=== PATIENT | female | born 1985 ===

== ENCOUNTER 2018-08-04 21:43 | Inpatient (IN) ==
[2018-08-04 22:06] LABS: Baso # (Auto) 0.1 th/mm3 (0.0-0.2); Baso % (Auto) 0.5 % (0.0-2.0); Eos # (Auto) 0.1 th/mm3 (0.0-0.4); Eos % (Auto) 0.6 % (0.0-4.0); Hematocrit 32.6 % (35.0-46.0); Hemoglobin 10.7 gm/dL (11.6-15.3); Lymph # (Auto) 4.4 th/mm3 (1.0-4.8); Lymph % (Auto) 20.6 % (9.0-44.0); Mean Corpuscular HGB Conc 32.9 % (32.0-36.0); Mean Corpuscular Hemoglobin 35.3 pg (27.0-34.0); Mean Corpuscular Volume 107.2 fL (80.0-100.0); Mean Platelet Volume 8.5 fL (7.0-11.0); Mono # (Auto) 0.3 th/mm3 (0.0-0.9); Mono % (Auto) 1.6 % (0.0-8.0); Neut # (Auto) 16.4 th/mm3 (1.8-7.7); Neut % (Auto) 76.7 % (16.0-70.0); Platelet Count 213 th/mm3 (150-450); Red Blood Count 3.04 mil/mm3 (4.00-5.30); Red Cell Distribution Width 13.6 % (11.6-17.2); White Blood Count 21.5 th/mm3 (4.0-11.0)
[2018-08-04] MEDS ORDERED: Midazolam Inj 5 MG/ML 1 ML Vial ONE ×2 (22:13→22:40)
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
[2018-08-04 22:20] LABS: Activated Partial Thrombo Time 36.4 sec (23.4-31.7); INR 1.2 Ratio; Prothrombin Time 12.6 sec (9.8-11.6)
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
[2018-08-04] MEDS ORDERED: Lidocaine PF 1% Inj 30 ML Vial ONE (22:40)
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
[2018-08-04] MEDS ORDERED: levETIRAcetam 1000mg/100mL Inj 100 ML IV.SIG ONE (23:35)
[2018-08-05 00:19] LABS: ABG Base Excess -5.8 mmol/L (-2-2); ABG PCO2 42 mmHg (38-42); ABG PO2 428 mmHg (61-120)
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
[2018-08-05] MEDS: Sod Chloride 0.9% Inj 1,000 ML IV.CONT SCH ×3 (00:36→16:16)
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
[2018-08-05] MEDS: Pantoprazole Inj 40 MG Vial IV.PUSH SCH ×2 (00:37→23:10)
[2018-08-05 00:58] LABS: Bacteria,Urine Rare /hpf; Bilirubin,Urine Negative (Negative); Clarity,Urine Hazy (Clear); Color,Urine Yellow (Yellw/Straw); Glucose,Urine (UA) Negative (Negative); Leukocyte Esterase,Urine Negative (Negative); Mucus,Urine Few /lpf (Occasional); Nitrite,Urine Negative (Negative); Squamous Epithelial Cell,Urine 2 /hpf (0-5)
[2018-08-05 01:00] LABS: Amphetamine Screen,Urine Neg (Neg); Barbiturate Screen,Urine Neg (Neg); Cannabinoid Screen,Urine Neg (Neg); Cocaine Screen,Urine Neg (Neg)
[2018-08-05 01:02] LABS: Opiate Screen,Urine Pos (Neg)
[2018-08-05] MEDS: Gentamicin/NS 80 mg Premix 100 ML IV.SIG SCH ×5 (01:22→22:44)
--- NOTE | 2018-08-05 01:28 | MP ---
cc: Bernard Andres MD DATE OF OPERATION: 08/04/2018 PREPROCEDURE DIAGNOSIS: Left chest tube. POSTPROCEDURE DIAGNOSIS: Left chest tube. PROCEDURE PERFORMED: Left chest tube placement, 28-Azerbaijani. SURGEON: Bernard Andres MD ANESTHESIA: Lidocaine 1%. DESCRIPTION OF PROCEDURE: In the trauma bay, the patient's left chest was prepped and draped sterilely. Lidocaine 1% was used to anesthetize the skin and subcutaneous tissue in the anterior axillary line at about the 4th interspace. A skin incision was then made. Using blunt dissection, the intercostal muscle was encountered and the chest cavity was entered. There was a baig of air. A 28-Azerbaijani chest tube placed into the chest cavity and secured with 2-0 silk suture. An occlusive dressing was placed. The chest tube was connected to Pleur-Evac. Chest x-ray ordered to confirm position. MD MARCO Sainz/olaf , 11:53 PM , 11:58 PM
[2018-08-05] MEDS: Sod Chloride 0.9% Inj 1,000 ML IV.SIG SCH ×2 (01:35→02:36)
[2018-08-05] MEDS: ceFAZolin Inj 2,000 MG in Sodium Chlor 0.9% Inj 80 ML IV.SIG SCH ×2 (02:25→11:48)
[2018-08-05] MEDS: Midazolam 100 MG/100 ML Inj 100 MG/100 ML BAG IV.CONT PRN ×2 (03:00→19:11)
[2018-08-05] MEDS ORDERED: Norepinephrine Inj 4 MG in Sodium Chlor 0.9% Inj 246 ML IV.SIG PRN (03:36)
[2018-08-05] MEDS ORDERED: Chlorhexidine Gluconate 2% 1 Pack (2 Cloths) TOPICAL PRN (04:00)
[2018-08-05 04:28] LABS: Baso # (Auto) 0.1 th/mm3 (0.0-0.2); Baso % (Auto) 0.4 % (0.0-2.0); Eos % (Auto) 0.1 % (0.0-4.0); Hematocrit 33.1 % (35.0-46.0); Hemoglobin 11.5 gm/dL (11.6-15.3); Lymph # (Auto) 1.4 th/mm3 (1.0-4.8); Lymph % (Auto) 8.1 % (9.0-44.0); Mean Corpuscular HGB Conc 34.8 % (32.0-36.0); Mean Corpuscular Hemoglobin 33.8 pg (27.0-34.0); Mean Corpuscular Volume 97.3 fL (80.0-100.0); Mean Platelet Volume 8.3 fL (7.0-11.0); Mono # (Auto) 0.6 th/mm3 (0.0-0.9); Mono % (Auto) 3.7 % (0.0-8.0); Neut # (Auto) 15.1 th/mm3 (1.8-7.7); Neut % (Auto) 87.7 % (16.0-70.0); Platelet Count 134 th/mm3 (150-450); Red Blood Count 3.41 mil/mm3 (4.00-5.30); Red Cell Distribution Width 16.1 % (11.6-17.2); White Blood Count 17.2 th/mm3 (4.0-11.0)
[2018-08-05 05:02] LABS: Albumin 2.5 g/dL (3.4-5.0); Calcium 6.4 mg/dL (8.5-10.1); Carbon Dioxide 20.6 meq/L (21.0-32.0); Potassium 3.2 meq/L (3.5-5.1); Total Protein 4.5 g/dL (6.4-8.2)
--- NOTE | 2018-08-05 05:07 | CT ---
EXAM DATE: 08/05/2018 4:42 AM EST AGE/SEX: 89 years / Female INDICATIONS: Intracerebral hemorrhage. CLINICAL DATA: This is the patient's initial encounter. Patient reports that signs and symptoms have been present for 1 day and indicates a pain score of Nonresponsive. MEDICAL/SURGICAL HISTORY: Non-responsive. Non-responsive. RADIATION DOSE: 52.83 CTDI (mGy) [place] [facility] [place]. . TECHNIQUE: CT of the head without contrast. Using automated exposure control and adjustment of the mA and/or kV according to patient size, radiation dose was kept as low as reasonably achievable to ob tain optimal diagnostic quality images. DICOM format image data is available electronically for revi ew and comparison. FINDINGS: Patchy subarachnoid hemorrhage is grossly unchanged. There is now some dependent blood in the ventric ular system. There is no focal drainable hemorrhagic collection identified. CONCLUSION: Evolving subarachnoid hemorrhage. Minimal layering hemorrhage now evident in the ventricular system. . Electronically signed by: Naun Yepez MD Board Certified Radiologist 08/05/2018 5:06 AM EST
--- NOTE | 2018-08-05 05:29 | CT ---
EXAM DATE: 08/05/2018 4:55 AM EST AGE/SEX: 89 years / Female INDICATIONS: Intracerebral hemorrhage. CLINICAL DATA: This is the patient's initial encounter. Patient reports that signs and symptoms have been present for 1 day and indicates a pain score of Nonresponsive. MEDICAL/SURGICAL HISTORY: Non-responsive. Non-responsive. RADIATION DOSE: 10.51 CTDI (mGy) COMPARISON: [facility] [place]ST [place], [place]/2018. . TECHNIQUE: Volumetric scanning was performed using a multi-row detector CT scanner during bolus infu frieda of 100 ml Omnipaque 350 (iohexol) nonionic water-soluble contrast as a cumulative dose for mult iple exams. The data was post processed with a variety of visualization algorithms including full v olume maximum intensity projection, multi-planar sliding thin slab reformation, curved planar reforma tion, and surface rendering techniques. Using automated exposure control and adjustment of the mA an d/or kV according to patient size, radiation dose was kept as low as reasonably achievable to obtain optimal diagnostic quality images. DICOM format image data is available electronically for review an d comparison. FINDINGS: There is excellent visualization of the major intracranial arteries out to the second-order branch ve ssels. There is no evidence for aneurysm, vessel truncation or stenosis, and no evidence for vascula r malformation. The scan also includes the cervical vasculature which appears grossly intact and the uppermost medias tinum and lungs. In the upper mediastinum, there does appear to be increased mediastinal hematoma, in cluding in the prevascular space and a single tiny focus of contrast enhancement in the AP window is identified worrisome for potential active bleeding in this location. There has been interval placemen t of left subclavian central catheter which appears to be in satisfactory location. Tiny left apical pneumothorax with chest tube in place. Apical subpleural blebs. Posterior consolidative densities. ET tube and NG tube noted. T1 anterior corner fracture. CONCLUSION: 1. No acute [place] vascular findings. 2. Apparent continued increase in size of mediastinal hematoma with findings suspicious for potentia l ongoing bleeding in the AP window region. CTA examination of the chest is suggested for more defini tive evaluation for potential thoracic aortic or other arterial injury in the chest 3. Finding and recommendation discussed with Dr. Andres upon interpretation . Electronically signed by: Naun Yepez MD Board Certified Radiologist 08/05/2018 5:28 AM EST
--- NOTE | 2018-08-05 05:45 | XR ---
EXAM DATE: 08/05/2018 4:47 AM EST AGE/SEX: 89 years / Female INDICATIONS: Evaluate pneumothorax. CLINICAL DATA: This is the patient's subsequent encounter. Patient reports that signs and symptoms h ave been present for 2 days and indicates a pain score of Nonresponsive. MEDICAL/SURGICAL HISTORY: None. Chest tube, left. COMPARISON: [facility] – [place], [place]ST 1V SINGLE AP, 08/04/2018. . FINDINGS: Endotracheal tube is present in good stable position. Nasogastric tube coils in the stomach. Left tho racostomy tube is noted. Left subclavian central line terminates with tip over SVC. There is a small right apical pneumothorax with about 15 mm separation of apical pleural layers. Mini mal medial left apical pneumothorax noted. Hazy right base pleural-parenchymal opacity likely contusi on and effusion. Cardiac contours are grossly unchanged CONCLUSION: Increased right apical pneumothorax. Slight worsening in right lung base pleural-parenchymal opacity Electronically signed by: Naun Yepez MD Board Certified Radiologist 08/05/2018 5:44 AM EST
--- NOTE | 2018-08-05 06:21 | CT ---
EXAM DATE: 08/05/2018 6:08 AM EST AGE/SEX: 89 years / Female INDICATIONS: Follow up mediastinum hematoma. CLINICAL DATA: This is the patient's subsequent encounter. Patient reports that signs and symptoms h ave been present for 1 day and indicates a pain score of Nonresponsive. MEDICAL/SURGICAL HISTORY: Non-responsive. Non-responsive. RADIATION DOSE: 9.39 CTDI (mGy) COMPARISON: [facility] – [place], [place] CHEST W CONTRAST, 08/04/2018. . TECHNIQUE: Volumetric scanning was performed using a multi-row detector CT scanner during bolus infu frieda of 75 ml Omnipaque 350 (iohexol) nonionic water-soluble contrast as a single exam dose. The taj a was post processed with a variety of visualization algorithms including full volume maximum intensi ty projection and sliding thin slab reformation. Using automated exposure control and adjustment of the mA and/or kV according to patient size, radiation dose was kept as low as reasonably achievable t o obtain optimal diagnostic quality images. DICOM format image data is available electronically for review and comparison. FINDINGS: Small anterior pneumothoraces bilaterally. Left thoracostomy tube is present. Posterior consolidative changes in small effusions bilaterally slightly worse on the right than the left. Thoracic aorta and branch vessels appear intact and unremarkable. The tiny hyperdense focus in the AP window is actually isodense or close to isodense to contrast in the pulmonary vessels rather than ar terial contrast density, as such unlikely to reflect active extravasation of any type. Mediastinal he matoma appears only minimally increased relative to the prior CT chest. CONCLUSION: No definite new acute findings. Nothing to suggest site of active bleeding. Electronically signed by: Naun Yepez MD Board Certified Radiologist 08/05/2018 6:19 AM EST
[2018-08-05] MEDS ORDERED: Potassium Chloride Liq 20 MEQ/15 ML UDC PO PRN (06:31)
[2018-08-05] MEDS ORDERED: Magnesium Sulfate Inj 4 GM in Sodium Chlor 0.9% Inj 92 ML IV.SIG PRN (06:31)
[2018-08-05] MEDS ORDERED: Magnesium Sulfate Inj 2 GM in Sodium Chlor 0.9% Inj 96 ML IV.SIG PRN (06:31)
[2018-08-05] MEDS ORDERED: Magnesium Oxide 400 MG Tablet PO PRN (06:31)
[2018-08-05] MEDS ORDERED: Potassium Phosphate 500 MG Soluble Tablet PO PRN ×2 (06:31)
[2018-08-05] MEDS ORDERED: Potassium Chlor 20 mEq Premix 20 MEQ/100 ML PIGGYBACK IV.SIG PRN (06:31)
[2018-08-05] MEDS ORDERED: Potassium Phosphate Inj 30 MMOL in Sodium Chlor 0.9% Inj 250 ML IV.SIG PRN (06:31)
[2018-08-05] MEDS ORDERED: Potassium Chlor 40 mEq Premix 40 MEQ/100 ML PIGGYBACK IV.SIG PRN (06:31)
[2018-08-05] MEDS ORDERED: Sodium Phosphate Inj 30 MMOL in Sodium Chlor 0.9% Inj 250 ML IV.SIG PRN (06:31)
[2018-08-05] MEDS: Chlorhexidine Gluconate 2% 1 Pack (2 Cloths) TOPICAL SCH (06:37)
--- NOTE | 2018-08-05 06:57 | CT ---
EXAM DATE: 08/05/2018 6:37 AM EST AGE/SEX: 89 years / Female INDICATIONS: Intracerebral hemorrhage. CLINICAL DATA: This is the patient's initial encounter. Patient reports that signs and symptoms have been present for 1 day and indicates a pain score of Nonresponsive. MEDICAL/SURGICAL HISTORY: Non-responsive. Non-responsive. RADIATION DOSE: 10.61 CTDI (mGy) COMPARISON: [facility] – [place], CT THORACIC SPINE W CONTRAST, 08/04/2018. . TECHNIQUE: Volumetric scanning was performed using a multirow detector CT scanner during bolus infus ion of 100 ml Omnipaque 350 (iohexol) nonionic water-soluble contrast as a cumulative dose for multi ple exams. The data was postprocessed with a variety of visualization algorithms including full-vol ume maximum intensity projection, multiplanar sliding thin-slab reformation, curved-planar reformatio n, and surface-rendering techniques. Using automated exposure control and adjustment of the mA and/o r kV according to patient size, radiation dose was kept as low as reasonably achievable to obtain opt imal diagnostic quality images. DICOM format image data is available electronically for review and c omparison. Percent stenosis is calculated using the diameter of the stenotic region over the diameter of the nor mal distal internal carotid artery. FINDINGS: Aortic Arch: There is a three-vessel origin of the great vessels from the aorta. No evidence of ost ial narrowing Right Carotid: The common carotid artery is intact. The carotid bulb has a normal configuration wit hout ulceration or narrowing. The internal carotid artery lumen is smooth without stenosis. The ext ernal carotid artery is intact. Left Carotid: The common carotid artery is intact. The carotid bulb has a normal configuration with out ulceration or narrowing. The internal carotid artery lumen is smooth without stenosis. The exte rnal carotid artery is intact. Vertebrals: The vertebral arteries are patent bilaterally, left side slightly dominant.. No stenoti c lesions are seen. CONCLUSION: Negative CTA Carotid. Electronically signed by: Naun Yepez MD Board Certified Radiologist 08/05/2018 6:56 AM EST
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
[2018-08-05 08:40] LABS: Lymphocytes 9 % (9-44); Platelet Morphology Normal (Normal)
[2018-08-05] MEDS: Senna/Docusate Sodium 8.6/50 MG Tablet PO SCH ×2 (09:03→20:21)
[2018-08-05] MEDS: Sodium Chloride 0.9% 2 ML Flush BID IV.FLUSH SCH ×2 (09:03→20:21)
[2018-08-05] MEDS: Chlorhexidine 0.12% Oral Kit 15 ML UDC OROPHARYNG SCH ×2 (09:04→20:20)
[2018-08-05] MEDS: ceFAZolin 2 GM Premix Inj 2 GM/50 ML PIGGYBACK IV.SIG SCH ×4 (09:08→21:50)
--- NOTE | 2018-08-05 09:44 | P.CONOP ---
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 bone scan), vascular studies, neurologic studies, specialist consultation, and proceeding with surgical management, as appropriate.
--- NOTE | 2018-08-05 10:49 | MR ---
EXAM DATE: 08/05/2018 10:36 AM EST AGE/SEX: 89 years / Female INDICATIONS: Weakness. T1 and T2 fracture. CLINICAL DATA: This is the patient's subsequent encounter. Patient reports that signs and symptoms h ave been present for 2 days and indicates a pain score of Nonresponsive. MEDICAL/SURGICAL HISTORY: None. . nasal surgery [place] [facility] [place] 08/04/2018. . TECHNIQUE: Multiplanar, multisequence MRI of the thoracic spine was performed. FINDINGS: Vertebrae: Patient has an extension type avulsion injury of the anterior inferior corner of T1 and t he superior endplate of T2. The marrow appears reasonably homogeneous with exception of the anterior inferior corner of T2. Alignment: Normal. Cord: Normal position and configuration. T1-T2: The thecal sac has a normal diameter. No evidence of disc bulge or protrusion. T2-T3: There is mild interspace ridging without significant spinal stenosis. There is no cord edema. T3-T4: The thecal sac has a normal diameter. No evidence of disc bulge or protrusion. T4-T5: The thecal sac has a normal diameter. No evidence of disc bulge or protrusion. T5-T6: The thecal sac has a normal diameter. No evidence of disc bulge or protrusion. T6-T7: The thecal sac has a normal diameter. No evidence of disc bulge or protrusion. T7-T8: The thecal sac has a normal diameter. No evidence of disc bulge or protrusion. T8-T9: The thecal sac has a normal diameter. No evidence of disc bulge or protrusion. T9-T10: The thecal sac has a normal diameter. No evidence of disc bulge or protrusion. T10-T11: The thecal sac has a normal diameter. No evidence of disc bulge or protrusion. T11-T12: The thecal sac has a normal diameter. No evidence of disc bulge or protrusion. T12-L1: The thecal sac has a normal diameter. No evidence of disc bulge or protrusion. CONCLUSION: 1. Fracture of the anterior-inferior corner of T1 images and superior endplate of T2 consistent with a hyperextension injury. The signal intensity in the cord is normal. Trace pleural effusion is seen bilaterally worse on the right than the left. Electronically signed by: Tay Malone MD Board Certified Radiologist 08/05/2018 10:48 AM EST
[2018-08-05] MEDS ORDERED: Phenylephrine/NS 1000 MCG/10ML Syringe IV.PUSH ONE (11:07)
[2018-08-05] MEDS ORDERED: Sod Chloride 0.9% Inj 1,000 ML IV.CONT ONE (11:07)
--- NOTE | 2018-08-05 11:20 | MR ---
EXAM DATE: 08/05/2018 10:58 AM EST AGE/SEX: 89 years / Female INDICATIONS: Trauma. CLINICAL DATA: This is the patient's subsequent encounter. Patient reports that signs and symptoms h ave been present for 2 days and indicates a pain score of Nonresponsive. MEDICAL/SURGICAL HISTORY: None. . nasal surgery COMPARISON: No prior exams available for comparison. TECHNIQUE: Multiplanar, multisequence MRI of the lumbar spine was performed without contrast. Patie nt was scanned in a sitting position; neutral, flexion, and extension scans were performed in the sa gittal plane. FINDINGS: Vertebra: Homogeneous signal. Normal alignment. Minimal Schmorl's type endplate depression at L1 pr obably chronic Conus: Normal level and configuration. T12-L1: The thecal sac has a normal diameter. No evidence of disc bulge or protrusion. The neural foramina are patent bilaterally. L1-L2: The thecal sac has a normal diameter. No evidence of disc bulge or protrusion. The neural foramina are patent bilaterally. L2-L3: The thecal sac has a normal diameter. No evidence of disc bulge or protrusion. The neural foramina are patent bilaterally. L3-L4: The thecal sac has a normal diameter. No evidence of disc bulge or protrusion. The neural foramina are patent bilaterally. L4-L5: The thecal sac has a normal diameter. No evidence of disc bulge or protrusion. The neural foramina are patent bilaterally. L5-S1: The thecal sac has a normal diameter. No evidence of disc bulge or protrusion. The neural foramina are patent bilaterally. CONCLUSION: 1. Negative MRI of the lumbar spine for acute traumatic injury. Electronically signed by: Tay Malone MD Board Certified Radiologist 08/05/2018 11:19 AM EST
[2018-08-05] MEDS ORDERED: Post-op Orders (for Pharmacy) OTHER STA (12:39)
--- NOTE | 2018-08-05 12:48 | P.OP ---
- Preoperative Diagnosis (1) Open fracture of left patella (2) Open supracondylar fracture of right femur Date of procedure: 08/05/18 Procedure: Irrigation and debridement open right distal femur fracture, open reduction right distal femur supracondylar fracture, external fixation right leg Irrigation debridement of open left patella fracture, open reduction internal fixation left patella fracture Anesthesia: GETA Surgeon: Nitish Banda MD Varnishing Unit Operator: BETSY Hodges PA-C The surgical procedure was assisted by my physician assistant manager. My P.A. presence was necessary throughout this case for the manipulation and positioning of the surgical extremity. My P.A. was assisting me throughout the duration of this procedure. The skill set of a physician assistant manager was medically necessary to complete this procedure. During the surgical case the rn medical surgical was working at the back table and the physician assistant manager was directly assisting me. Operation and Findings: Implants used: Orthofix external fixation right knee, Synthes cannulated screws left patella Details of procedure: This patient sustained an injury resulting in open comminuted fractures of right distal femur and left patella. Patient was seen and evaluated preoperatively and found to have too much swelling to proceed with open reduction internal fixation. She is intubated and sedated in the intensive care unit. Surgical site was marked. Patient was brought to operating room and placed on the OR table. Patient was given IV sedation and GETA. Patient received IV antibiotics and timeout procedure was performed. Bilateral legs were prepped with alcohol followed by Hibiclens and draped in the usual sterile fashion. Procedure began with irrigation debridement of the right distal femur fracture. A 4 inch incision was made over the lateral aspect of the distal femur. Iliotibial band was split in line with fibers. Vastus lateralis was elevated. Fracture site was visualized. An excisional debridement was performed. Multiple small bone fragments were removed. Skin fascia and muscle were sharply debrided with scalpel. After completion of debridement the wound was thoroughly irrigated with sterile saline via pulsatile lavage. Next attention was turned towards placement of the external fixation. Two small incisions were made along the anterior femur and the tibia. Soft tissue was dissected bluntly. Cannulas were placed down to the cortex of bone. Pin sites were predrilled. Synthes GRAY-coated pins were placed into the femur and tibia. Fluoroscopy was used to confirm appropriate pin placement. An external fixator construct was now created with clamps and bars. Next attention was turned to reduction. Traction was applied. Fracture was manipulated through the open wound. There was severe comminution of the fracture. Gross alignment of the fracture was obtained. Fluoroscopy was used to confirm appropriate alignment of fracture. The external fixator was now tightened to hold reduction. The soft tissue was reevaluated. Patient did have swelling around the knee and calf but compartments were soft and compressible with no signs of compartment syndrome. Incisions were closed with 0 Vicryl, 3-0 Vicryl, 3-0 nylon and roby. Next attention was turned towards the left patella. The traumatic laceration was extended proximally and distally to allow for exposure of the patella. Subcutaneous tissue was dissected with Bovie. At this point the fracture site was visualized. Fracture was severely comminuted. Fracture was now cleaned with curettes. At this point attention was turned to reduction. The inferior pole of the patella was reduced to the superior pole of the patella. Fracture keyed into appropriate alignment. A lateral articular surface fragment was also reduced. Multiplanar fluoroscopy confirmed excellent alignment of fracture. Two guide pins for the Synthes 4.0 cannulated screws were now placed from inferior to superior. A third wire was placed from lateral to medial. Fluoroscopy was used to confirm appropriate guidepin placement. Screw lengths were measured. Cannulated drill was now placed over the guide pins. Appropriate length screws were now placed, good compression was applied. An 18 gauge wire was now passed through the cannulated screws in a [id number] fashion. A tension band type construct was now created. The wires were tensioned appropriately. Fluoroscopy confirmed well-placed hardware with well- aligned fracture. The retinaculum was now closed with #1 PDS, subcutaneous tissue was closed with 3-0 PDS and skin was closed with roby and 3-0 nylon. Sterile dressings were applied. The patient was transferred back to intensive care. She was placed into a knee immobilizer.
[2018-08-05] MEDS ORDERED: fentaNYL Citrate Inj 100 MCG/2 ML Ampul ONE (13:30)
--- NOTE | 2018-08-05 13:45 | XR ---
EXAM DATE: 08/05/2018 12:49 PM EST AGE/SEX: 89 years / Female INDICATIONS: LEFT KNEE ORIF CLINICAL DATA: This is the patient's initial encounter. Patient reports that signs and symptoms have been present for 1 day and indicates a pain score of Nonresponsive. MEDICAL/SURGICAL HISTORY: Non-responsive. Non-responsive. COMPARISON: No prior exams available for comparison. FINDINGS: 2 images recorded digitally in the operating room using C-arm during placement of internal fixation h ardware in the patella. CONCLUSION: Intraoperative images. Electronically signed by: Marino Ji MD Board Certified Radiologist 08/05/2018 1:44 PM EST
--- NOTE | 2018-08-05 13:45 | XR ---
EXAM DATE: 08/05/2018 12:47 PM EST AGE/SEX: 89 years / Female INDICATIONS: RIGHT FEMUR EX-FIX. CLINICAL DATA: This is the patient's initial encounter. Patient reports that signs and symptoms have been present for 1 day and indicates a pain score of Nonresponsive. MEDICAL/SURGICAL HISTORY: Non-responsive. Non-responsive. COMPARISON: No prior exams available for comparison. FINDINGS: 4 images are recorded digitally in the operating room using C-arm of the mid and distal femur. CONCLUSION: Intraoperative images. Electronically signed by: Marino Ji MD Board Certified Radiologist 08/05/2018 1:44 PM EST
[2018-08-05] MEDS ORDERED: ceFAZolin Inj 2,000 MG in Sodium Chlor 0.9% Inj 80 ML IV.SIG SCH (14:00)
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
[2018-08-05] MEDS: Potassium Chlor 40 mEq Premix 40 MEQ/100 ML PIGGYBACK IV.SIG PRN ×2 (16:13→19:26)
[2018-08-05] MEDS: Oral Hygiene Kit OROPHARYNG SCH ×3 (16:17→23:22)
[2018-08-05] MEDS ORDERED: Lidocaine 1%/Epinephrine 1:100,000 Inj 30 ML Vial ONE (17:31)
[2018-08-05] MEDS ORDERED: Balanced Salt Opth Irrigation 15 APPLIC/15 ML Bottle ONE (18:43)
--- NOTE | 2018-08-05 19:48 | P.OP ---
- Preoperative Diagnosis (1) Eyelid laceration, left (2) Chin laceration Date of procedure: 08/05/18 Procedure: closure of complex left upper eyelid laceration/soft tissue injury with advancement closure 3cm x 2cm closure of complex left lower eyelid laceration/soft tissue injury with advancement closure 2cmx 1cm debridement/closure of complex chin laceration/soft tissue injury 5cm x 2 cm Anesthesia: local (2%lidocaine with 1:100,000 6 cc) Surgeon: Gagan Warren DMD Machine Tool Mechanic: nurse reynolds Pathology: none sent
[2018-08-05] MEDS: fentaNYL 10 mcg/mL Premix Drip 2,500 MCG/250 ML BAG IV.SIG PRN ×2 (20:21)
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
[2018-08-06] MEDS: ceFAZolin 2 GM Premix Inj 2 GM/50 ML PIGGYBACK IV.SIG SCH ×4 (00:32→21:07)
[2018-08-06] MEDS: Gentamicin/NS 80 mg Premix 100 ML IV.SIG SCH ×4 (01:16→21:47)
[2018-08-06] MEDS: Sod Chloride 0.9% Inj 1,000 ML IV.CONT SCH ×3 (01:59→22:32)
[2018-08-06] MEDS: Oral Hygiene Kit OROPHARYNG SCH ×4 (03:18→23:48)
[2018-08-06] MEDS: Chlorhexidine Gluconate 2% 1 Pack (2 Cloths) TOPICAL SCH (03:18)
--- NOTE | 2018-08-06 04:08 | XR ---
EXAM DATE: 08/06/2018 3:56 AM EST AGE/SEX: 89 years / Female INDICATIONS: Respiratory distress. CLINICAL DATA: This is the patient's subsequent encounter. Patient reports that signs and symptoms h ave been present for 2 days and indicates a pain score of Nonresponsive. MEDICAL/SURGICAL HISTORY: . Thoracic spine fracture. Chest tube, left. Fusion, thoracic. Cent ral line. COMPARISON: [facility] [place], CHEST 1V SINGLE AP, 08/05/2018. . FINDINGS: There has been interval increase in right pneumothorax with greater than 2.5 cm separation of apical pleural layers now evident and 13-14 mm separation of apical pleural layers laterally. There is persi stent basilar consolidation and effusion bilaterally. Left thoracostomy tube remains in place with no significant left pneumothorax at present. Left subclavian central line, endotracheal tube and nasoga stric tube are stable. Cardiac contours are unchanged CONCLUSION: Sizable right pneumothorax Electronically signed by: Nanu Yepez MD Board Certified Radiologist 08/06/2018 4:06 AM EST
[2018-08-06 04:31] LABS: Baso % (Auto) 0.2 % (0.0-2.0); Eos % (Auto) 0.2 % (0.0-4.0); Hematocrit 24.2 % (35.0-46.0); Hemoglobin 8.4 gm/dL (11.6-15.3); Lymph # (Auto) 1.5 th/mm3 (1.0-4.8); Lymph % (Auto) 12.7 % (9.0-44.0); Mean Corpuscular HGB Conc 34.6 % (32.0-36.0); Mean Corpuscular Hemoglobin 34.1 pg (27.0-34.0); Mean Corpuscular Volume 98.6 fL (80.0-100.0); Mono % (Auto) 8.5 % (0.0-8.0); Neut # (Auto) 9.1 th/mm3 (1.8-7.7); Neut % (Auto) 78.4 % (16.0-70.0); Platelet Count 107 th/mm3 (150-450); Red Blood Count 2.45 mil/mm3 (4.00-5.30); Red Cell Distribution Width 16.6 % (11.6-17.2); White Blood Count 11.6 th/mm3 (4.0-11.0)
[2018-08-06 05:05] LABS: Albumin 2.2 g/dL (3.4-5.0); Calcium 6.1 mg/dL (8.5-10.1); Carbon Dioxide 19.9 meq/L (21.0-32.0); Potassium 5.1 meq/L (3.5-5.1); Total Protein 4.8 g/dL (6.4-8.2)
[2018-08-06 05:58] LABS: ABG Base Excess -6.7 mmol/L (-2-2); ABG PCO2 35 mmHg (38-42); ABG PO2 78 mmHg (61-120)
[2018-08-06] MEDS ORDERED: Lidocaine 1% Inj 50 ML Vial INFILTRATN ONE (06:33)
--- NOTE | 2018-08-06 06:57 | P.PNOP ---
Subjective Interval history: POD 1 s/p ORIF left patella fx POD 1 s/p I&D with exfix right distal femur fx intubated/sedated Physical Exam Vital signs: Vital Signs 08/05/18 07:00 08/05/18 07:15 08/05/18 07:30 Temperature Pulse Rate 109 H 111 H 114 H Respiratory Rate 18 29 H 22 Blood Pressure 117/57 L 124/56 L 115/57 L Pulse Oximetry 100 100 100 08/05/18 07:45 08/05/18 07:58 08/05/18 08:00 Temperature 98.9 F Pulse Rate 115 H 117 H 117 H Respiratory Rate 36 H 20 38 H Blood Pressure 111/76 109/71 Pulse Oximetry 100 100 100 08/05/18 08:24 08/05/18 08:30 08/05/18 08:45 Temperature Pulse Rate 121 H 122 H 121 H Respiratory Rate 38 H 31 H 40 H Blood Pressure 113/56 L 117/57 L 103/68 Pulse Oximetry 100 100 100 08/05/18 09:00 08/05/18 09:15 08/05/18 11:08 Temperature Pulse Rate 120 H 122 H Respiratory Rate 22 25 H Blood Pressure 102/63 103/56 L Pulse Oximetry 100 100 100 08/05/18 13:45 08/05/18 14:00 08/05/18 15:00 Temperature 98.9 F Pulse Rate 127 H 125 H 136 H Respiratory Rate 28 H 25 H 24 Blood Pressure 109/55 L 106/67 Pulse Oximetry 100 100 100 08/05/18 15:21 08/05/18 16:00 08/05/18 17:00 Temperature 100.2 F H Pulse Rate 138 H 139 H Respiratory Rate 22 24 22 Blood Pressure 108/57 L 110/59 L Pulse Oximetry 100 100 100 08/05/18 18:00 08/05/18 19:00 08/05/18 20:00 Temperature 102.9 F H Pulse Rate 139 H 139 H 140 H Respiratory Rate 19 28 H 19 Blood Pressure 109/53 L 105/56 L 115/57 L Pulse Oximetry 100 100 100 08/05/18 21:00 08/05/18 22:00 08/05/18 23:00 Temperature Pulse Rate 140 H 136 H 129 H Respiratory Rate 22 23 23 Blood Pressure 103/61 105/57 L 110/70 Pulse Oximetry 95 94 L 93 L 02/12/19 00:00 08/06/18 00:29 08/06/18 01:00 Temperature 100.4 F H Pulse Rate 125 H 122 H Respiratory Rate 21 21 21 Blood Pressure 119/67 131/66 Pulse Oximetry 95 94 L 94 L 08/06/18 02:00 08/06/18 03:00 08/06/18 03:42 Temperature Pulse Rate 116 H 112 H 113 H Respiratory Rate 40 H 20 19 Blood Pressure 123/63 123/67 Pulse Oximetry 95 95 97 08/06/18 04:00 08/06/18 05:00 08/06/18 06:00 Temperature 98 F Pulse Rate 115 H 113 H 113 H Respiratory Rate 23 25 H 39 H Blood Pressure 123/73 127/83 131/84 Pulse Oximetry 96 95 95 Intake & Output 08/05/18 08/05/18 08/06/18 06:59 18:59 06:59 Intake Total 2300 / 2300 3005 / 3005 2105 / 2105 Output Total 712 / 712 50 / 50 822 / 822 Balance 1588 / 1588 2955 / 2955 1283 / 1283 Weight 76.6 kg 75.2 kg Intake: IV 2300 / 2300 2004 2105 / 2105 Versed Inj 100 mg In 100 ml @ 2 100 / 100 MG/HR 2 mls/hr IV.CONT TITRATE PRN Rx#:[id number] NS Inj 1,000 ML @ 100 mls/hr IV 1600 / 1600 1000 / 1000 .CONT .Q10H MAEVE Rx#:[id number] Ofirmev Inj 1,000 mg In 100 ml 100 / 100 @ 400 mls/hr IV.SIG Q6H PRN Rx# :[id number] Gentamicin/NS 80 mg Premix 100 100 / 100 200 / 200 200 / 200 ML @ 200 mls/hr IV.SIG Q8H MAEVE Rx#:[id number] KCl 40 mEq Premix Inj 40 meq In 200 / 200 100 ml @ 25 mls/hr IV.SIG Q2H PRN Rx#:[id number] NS Inj 1,000 ML @ 1000 mls/hr 1999 / 1999 IV.SIG .Q1H MAEVE Rx#:[id number] Ancef 2 GM Premix Inj 2 gm In 100 / 100 150 / 150 50 ml @ 100 mls/hr IV.SIG Q8H [facility] Rx#:[id number] Ancef Inj 2,000 MG In NS Inj 80 100 / 100 ML @ 200 mls/hr IV.SIG Q8H [facility] Rx#:[id number] fentaNYL 10 mcg/mL Premix Drip 250 / 250 2,500 mcg In 250 ml @ 50 MCG/HR 5 mls/hr IV.SIG TITRATE PRN Rx #:[id number] Keppra 1000 mg/100 mL Premix 100 / 100 100 ML @ 400 mls/hr IV.SIG ONCE ONE Rx#:[id number] Keppra Inj 500 MG In NS Inj 100 105 / 105 105 / 105 ML @ 400 mls/hr IV.SIG Q12H [facility] Rx#:[id number] Anesthesia Amount 1000 / 1000 Output: Estimated Blood Loss 50 / 50 Urine Amount (Catheter) 650 / 650 700 / 700 Indwelling Urethral Catheter 650 / 650 700 / 700 Gastric Drainage 50 / 50 100 / 100 Oral Orogastric Tube 50 / 50 100 / 100 Chest Tube Drainage Left Upper Other: Weight On Admission 76.6 kg Narrative: RLE: dressings clean and dry. exfix in place. pin sites clean. +cap refill LLE: dressing clean and dry. intact. +CKS. +cap refill - Urinary Catheter Management Indwelling Urethral Catheter Cath placed during this visit: yes Reason for continuing: Hourly intake/output Insertion date: 08/05/18 Insertion time: 00:00 Results - Labs CBC & Chem 7: 08/06/18 03:10 08/06/18 03:10 Laboratory Results - last 24 hr 08/04/18 08/04/18 08/05/18 21:53 22:07 04:10 WBC RBC Hgb Hct MCV MCH MCHC RDW Plt Count MPV Neut % (Auto) Lymph % (Auto) Cedar % (Auto) Eos % (Auto) Baso % (Auto) Neut # (Auto) Lymph # (Auto) Cedar # (Auto) Eos # (Auto) Baso # (Auto) WBC Differential Manual diff final Seg Neuts % (Manual) 56 Band Neuts % (Manual) 35 H Lymphocytes % (Manual) 9 Abs Neuts (Manual) 15.7 H Differential Comment Platelet Estimate Low L Platelet Morphology Normal Puncture Site Patient Temperature O2 Saturation ABG pH ABG pCO2 ABG pO2 ABG HCO3 ABG O2 Content ABG Base Excess ABG Methemoglobin Bereket Test Hemoglobin Carboxyhemoglobin O2 Delivery Device Vent Setting Inspired O2 Critical Value Sodium Potassium Chloride Carbon Dioxide Anion Gap BUN Creatinine Estimated GFR Random Glucose Calcium Calcium Adj for Albumin Total Bilirubin AST ALT Alkaline Phosphatase Total Protein Albumin Blood Type B Positive Blood Type Recheck Antibody Screen Negative MTS Gel Crossmatch See Detail Blood Bank Comment 08/06/18 08/06/18 08/06/18 03:10 03:10 05:45 WBC 11.6 H RBC 2.45 L Hgb 8.4 L D Hct 24.2 L MCV 98.6 MCH 34.1 H MCHC 34.6 RDW 16.6 Plt Count 107 L MPV 9.0 Neut % (Auto) 78.4 H Lymph % (Auto) 12.7 Cedar % (Auto) 8.5 H Eos % (Auto) 0.2 Baso % (Auto) 0.2 Neut # (Auto) 9.1 H Lymph # (Auto) 1.5 Cedar # (Auto) 1.0 H Eos # (Auto) 0.0 Baso # (Auto) 0.0 WBC Differential . Seg Neuts % (Manual) Band Neuts % (Manual) Lymphocytes % (Manual) Abs Neuts (Manual) Differential Comment Auto diff final Platelet Estimate Platelet Morphology Puncture Site Left radial Patient Temperature 98.6 O2 Saturation 92 ABG pH 7.34 L ABG pCO2 35 L ABG pO2 78 ABG HCO3 18 L ABG O2 Content 12.8 ABG Base Excess -6.7 L ABG Methemoglobin 1.3 Bereket Test Present Hemoglobin 9.8 L Carboxyhemoglobin 1.2 O2 Delivery Device Ventilator Vent Setting 18/500/it0.9/5peep Inspired O2 40 Critical Value No Sodium 148 H Potassium 5.1 D Chloride 120 H Carbon Dioxide 19.9 L Anion Gap 8 BUN 27 H Creatinine 1.10 H Estimated GFR 43 L Random Glucose 157 H Calcium 6.1 L* Calcium Adj for Albumin 7.5 L Total Bilirubin 0.2 AST 451 H ALT 269 H Alkaline Phosphatase 53 Total Protein 4.8 L Albumin 2.2 L Blood Type Blood Type Recheck Antibody Screen MTS Gel Crossmatch Blood Bank Comment - Imaging Impressions Femur X-Ray 08/05/18 00:00 CONCLUSION: Intraoperative images. Knee X-Ray 08/05/18 00:00 CONCLUSION: Intraoperative images. Neck CTA 08/05/18 05:00 CONCLUSION: Negative CTA Carotid. Lumbar Spine MRI 08/05/18 08:34 CONCLUSION: 1. Negative MRI of the lumbar spine for acute traumatic injury. Thoracic Spine MRI 08/05/18 08:34 CONCLUSION: 1. Fracture of the anterior-inferior corner of T1 images and superior endplate of T2 consistent with a hyperextension injury. The signal intensity in the cord is normal. Trace pleural effusion is seen bilaterally worse on the right than the left. Chest X-Ray 08/06/18 06:00 CONCLUSION: Sizable right pneumothorax Assessment and Plan - Assessment and Plan 1) Left Open Patella Fracture s/p ORIF - POD 1 -NWB -no ROM -knee brace at all times -no quad sets or leg lifts -daily dressing changes POD 2 with xeroform/4x4/FERMIN 2) Right Open Comminuted distal Femur Fracture s/p exfix -NWB -pin care BID with 50/50 peroxide/saline -will need definitive ORIF once patient is stable -would like to proceed this week if patient can tolerate. will discuss with trauma team and plan accordingly.
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
[2018-08-06] MEDS ORDERED: Artificial Tears Opth Oint 3.5 GM Tube LEFT EYE SCH (10:00)
[2018-08-06] MEDS: Chlorhexidine 0.12% Oral Kit 15 ML UDC OROPHARYNG SCH ×2 (10:28→20:23)
[2018-08-06] MEDS: Sodium Chloride 0.9% 2 ML Flush BID IV.FLUSH SCH ×2 (10:29→20:24)
[2018-08-06] MEDS: fentaNYL 10 mcg/mL Premix Drip 2,500 MCG/250 ML BAG IV.SIG PRN ×2 (10:30→20:25)
--- NOTE | 2018-08-06 10:35 | XR ---
EXAM DATE: 08/06/2018 10:26 AM EST AGE/SEX: 89 years / Female INDICATIONS: Right side chest tube placement. CLINICAL DATA: This is the patient's subsequent encounter. Patient reports that signs and symptoms h ave been present for 2 days and indicates a pain score of Nonresponsive. MEDICAL/SURGICAL HISTORY: . Thoracic spine fracture. Chest tube, left. Central line. . Fusion, thoracic. COMPARISON: [facility], CHEST 1V SINGLE AP, 08/06/2018. . FINDINGS: Right apical pneumothorax is present obscured by breathing apparatus, however appears slightly smalle r. Lines and tubes have not changed. Left lung base opacity is present may represent consolidation. T here is subcutaneous emphysema in the right chest wall with a pigtail chest tube in place. Small righ t pleural effusion is also present. CONCLUSION: 1. Reduction in size of the right pneumothorax with small apical pneumothorax remaining. 2. Bilateral pleural effusions and left lung base consolidation. Right lung base consolidation is di fficult to exclude. Electronically signed by: Vanessa Montanez MD Board Certified Radiologist 08/06/2018 10:33 AM EST
[2018-08-06] MEDS: Senna/Docusate Sodium 8.6/50 MG Tablet PO SCH ×2 (10:40→20:23)
[2018-08-06] MEDS: Enoxaparin Inj 30 MG/0.3 ML Syringe SQ SCH ×2 (10:41→20:23)
[2018-08-06] MEDS: [UNRECOGNIZED DRUG - OTHER] LEFT EYE SCH ×2 (12:12→20:24)
[2018-08-06] MEDS: Midazolam 100 MG/100 ML Inj 100 MG/100 ML BAG IV.CONT PRN (12:14)
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
--- NOTE | 2018-08-06 17:20 | XR ---
EXAM DATE: 08/06/2018 5:12 PM EST AGE/SEX: 33 years / Female INDICATIONS: Respiratory distress. CLINICAL DATA: This is the patient's initial encounter. Patient reports that signs and symptoms have been present for 2 days and indicates a pain score of Nonresponsive. MEDICAL/SURGICAL HISTORY: Non-responsive. Non-responsive. COMPARISON: [facility] [place], CHEST 1V SINGLE AP, 08/06/2018. . FINDINGS: A single AP view of the chest demonstrates right apical pneumothorax measuring 13 mm of pleural separ ation. Right-sided chest tube and subcutaneous emphysema. Left-sided chest tube with small left apica l pneumothorax measuring 7 mm pleural separation. Minimal bibasilar densities. The cardiomediastinal contours are unremarkable. Osseous structures are intact. Endotracheal tube, nasogastric tube and le ft subclavian central line stable position. CONCLUSION: Small bilateral pneumothoraces slightly larger on the right. Electronically signed by: Levar Nation MD Board Certified Radiologist 08/06/2018 5:19 PM EST
[2018-08-06 17:25] LABS: ABG Base Excess -5.1 mmol/L (-2-2); ABG PCO2 38 mmHg (38-42); ABG PO2 79 mmHg (61-120)
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
[2018-08-06] MEDS: Pantoprazole Inj 40 MG Vial IV.PUSH SCH (23:47)
[2018-08-07] MEDS: Chlorhexidine Gluconate 2% 1 Pack (2 Cloths) TOPICAL SCH (03:46)
[2018-08-07] MEDS: Oral Hygiene Kit OROPHARYNG SCH ×4 (03:47→23:56)
[2018-08-07] MEDS: Midazolam 100 MG/100 ML Inj 100 MG/100 ML BAG IV.CONT PRN ×2 (03:47→23:57)
[2018-08-07 04:24] LABS: Baso % (Auto) 0.1 % (0.0-2.0); Lymph # (Auto) 0.8 th/mm3 (1.0-4.8); Lymph % (Auto) 5.9 % (9.0-44.0); Mean Corpuscular Hemoglobin 33.8 pg (27.0-34.0); Mean Corpuscular Volume 99.7 fL (80.0-100.0); Mean Platelet Volume 9.6 fL (7.0-11.0); Mono # (Auto) 0.7 th/mm3 (0.0-0.9); Mono % (Auto) 4.9 % (0.0-8.0); Neut % (Auto) 89.1 % (16.0-70.0); Platelet Count 92 th/mm3 (150-450); Red Blood Count 1.88 mil/mm3 (4.00-5.30); Red Cell Distribution Width 16.4 % (11.6-17.2); White Blood Count 13.5 th/mm3 (4.0-11.0)
[2018-08-07 04:33] LABS: Hematocrit 18.7 % (35.0-46.0); Hemoglobin 6.4 gm/dL (11.6-15.3)
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
[2018-08-07 05:11] LABS: Anion Gap 9 meq/L (5-15); Blood Urea Nitrogen 18 mg/dL (7-18); Calcium 6.6 mg/dL (8.5-10.1); Carbon Dioxide 21.5 meq/L (21.0-32.0); Chloride 119 meq/L (98-107); Glomerular Filtration Rate Greater Than 89 mL/min (>89); Glucose,Random 130 mg/dL (74-106); Potassium 4.2 meq/L (3.5-5.1); Sodium 149 meq/L (136-145)
[2018-08-07 05:28] LABS: Albumin 2.1 g/dL (3.4-5.0); Calcium-Albumin Corrected 8.1 mg/dL (8.5-10.1)
[2018-08-07] MEDS: fentaNYL 10 mcg/mL Premix Drip 2,500 MCG/250 ML BAG IV.SIG PRN ×2 (05:47→19:00)
[2018-08-07] MEDS: ceFAZolin 2 GM Premix Inj 2 GM/50 ML PIGGYBACK IV.SIG SCH (05:48)
[2018-08-07] MEDS: Gentamicin/NS 80 mg Premix 100 ML IV.SIG SCH (06:20)
[2018-08-07 07:09] LABS: Lymphocytes 7 % (9-44); Metamyelocytes 2 % (0-1); Monocytes 3 % (0-8); Platelet Morphology Normal (Normal)
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
[2018-08-07] MEDS: [UNRECOGNIZED DRUG - OTHER] LEFT EYE SCH ×2 (08:10→21:08)
[2018-08-07] MEDS: Chlorhexidine 0.12% Oral Kit 15 ML UDC OROPHARYNG SCH ×2 (08:10→21:09)
[2018-08-07] MEDS: Senna/Docusate Sodium 8.6/50 MG Tablet PO SCH ×2 (08:11→21:07)
[2018-08-07] MEDS: Enoxaparin Inj 30 MG/0.3 ML Syringe SQ SCH ×3 (08:11→21:08)
[2018-08-07] MEDS: Sod Chloride 0.9% Inj 1,000 ML IV.CONT SCH (08:11)
[2018-08-07] MEDS: Sodium Chloride 0.9% 2 ML Flush BID IV.FLUSH SCH ×2 (08:11→21:07)
[2018-08-07 10:01] LABS: ABG Base Excess -2.7 mmol/L (-2-2); ABG PCO2 34 mmHg (38-42); ABG PO2 70 mmHg (61-120)
[2018-08-07] MEDS: Sodium Chloride 0.45 % Inj 1,000 ML IV.CONT SCH (10:15)
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
--- NOTE | 2018-08-07 10:41 | P.PN ---
Subjective Interval history: pt seen and examined 08-06-18 POD 1 s/p repair of complex eyelid lacerations and chin laceration pt seen and examined, intubated, sedated, pt's nurse at bedside Physical Exam Vital signs: Vital Signs 08/06/18 11:00 08/06/18 12:00 08/06/18 12:02 Temperature 99.0 F Pulse Rate 117 H 116 H Respiratory Rate 18 18 20 Blood Pressure 131/82 124/89 Pulse Oximetry 94 L 95 95 08/06/18 13:00 08/06/18 14:00 08/06/18 15:00 Temperature Pulse Rate 117 H 122 H 128 H Respiratory Rate 18 18 18 Blood Pressure 128/79 121/71 118/67 Pulse Oximetry 94 L 93 L 97 08/06/18 15:14 08/06/18 16:00 08/06/18 17:00 Temperature Pulse Rate 120 H 128 H 126 H Respiratory Rate 18 19 21 Blood Pressure 128/70 124/68 Pulse Oximetry 96 97 92 L 08/06/18 18:00 08/06/18 18:45 08/06/18 19:02 Temperature Pulse Rate 121 H 122 H Respiratory Rate 34 H 22 Blood Pressure 133/60 Pulse Oximetry 92 L 98 89 L 08/06/18 19:44 08/06/18 20:00 08/06/18 20:30 Temperature 99.4 F Pulse Rate 121 H 121 H 123 H Respiratory Rate 38 H 39 H 21 Blood Pressure 169/77 H 145/72 H 129/84 Pulse Oximetry 99 99 100 08/06/18 20:31 08/06/18 21:00 08/06/18 21:30 Temperature Pulse Rate 122 H 124 H 126 H Respiratory Rate 20 18 18 Blood Pressure 128/72 Pulse Oximetry 98 100 100 08/06/18 22:00 08/06/18 22:30 08/06/18 23:00 Temperature Pulse Rate 123 H 129 H 125 H Respiratory Rate 20 18 18 Blood Pressure 118/79 131/70 122/76 Pulse Oximetry 98 98 100 08/06/18 23:30 08/07/18 00:00 08/07/18 00:30 Temperature 99.1 F Pulse Rate 126 H 124 H 126 H Respiratory Rate 18 18 18 Blood Pressure 127/80 116/76 121/74 Pulse Oximetry 100 100 100 08/07/18 01:00 08/07/18 01:12 08/07/18 01:30 Temperature Pulse Rate 128 H 124 H Respiratory Rate 18 18 18 Blood Pressure 123/74 137/61 Pulse Oximetry 99 99 96 08/07/18 02:00 08/07/18 02:30 08/07/18 03:00 Temperature Pulse Rate 124 H 122 H 123 H Respiratory Rate 18 18 18 Blood Pressure 121/75 128/70 131/74 Pulse Oximetry 96 97 98 08/07/18 03:05 08/07/18 03:30 08/07/18 03:45 Temperature Pulse Rate 114 H 123 H Respiratory Rate 18 18 19 Blood Pressure 128/74 Pulse Oximetry 94 L 96 08/07/18 04:00 08/07/18 04:30 08/07/18 05:00 Temperature 98.4 F Pulse Rate 119 H 118 H 113 H Respiratory Rate 18 18 18 Blood Pressure 128/66 128/70 134/61 Pulse Oximetry 96 96 98 08/07/18 05:30 08/07/18 06:00 08/07/18 06:24 Temperature 98.5 F Pulse Rate 112 H 110 H 110 H Respiratory Rate 18 18 18 Blood Pressure 124/72 127/75 127/75 Pulse Oximetry 98 99 99 08/07/18 06:30 08/07/18 06:45 08/07/18 07:00 Temperature Pulse Rate 107 H 105 H 103 H Respiratory Rate 18 18 18 Blood Pressure 130/76 128/73 130/75 Pulse Oximetry 100 100 100 08/07/18 07:15 08/07/18 07:30 08/07/18 07:45 Temperature Pulse Rate 102 H 102 H 102 H Respiratory Rate 18 18 18 Blood Pressure 126/67 130/66 124/71 Pulse Oximetry 100 99 99 08/07/18 08:00 08/07/18 08:09 08/07/18 08:15 Temperature 98.9 F 98.9 F Pulse Rate 104 H 108 H 115 H Respiratory Rate 22 23 Blood Pressure 134/75 134/75 151/83 H Pulse Oximetry 98 95 08/07/18 08:29 08/07/18 08:30 08/07/18 08:45 Temperature Pulse Rate 110 H 113 H 113 H Respiratory Rate 18 19 19 Blood Pressure 140/77 164/81 H Pulse Oximetry 95 95 92 L 08/07/18 09:00 Temperature Pulse Rate 107 H Respiratory Rate 18 Blood Pressure 134/63 Pulse Oximetry 94 L Intake & Output 08/06/18 08/07/18 08/07/18 18:59 06:59 18:59 Intake Total 1705 / 1705 1805 / 1805 1000 / 1000 Output Total 1455 / 1455 1226 / 1226 Balance 250 / 250 579 / 579 1000 / 1000 Weight 75.4 kg Intake: IV 1705 / 1705 1405 / 1405 1000 / 1000 Versed Inj 100 mg In 100 ml @ 2 100 / 100 100 / 100 MG/HR 2 mls/hr IV.CONT TITRATE PRN Rx#:[id number] NS Inj 1,000 ML @ 100 mls/hr IV 1000 / 1000 400 / 400 1000 / 1000 .CONT .Q10H MAEVE Rx#:[id number] Gentamicin/NS 80 mg Premix 100 200 / 200 200 / 200 ML @ 200 mls/hr IV.SIG Q8H MAEVE Rx#:[id number] Ancef 2 GM Premix Inj 2 gm In 50 / 50 100 / 100 50 ml @ 100 mls/hr IV.SIG Q8H MAEVE Rx#:[id number] fentaNYL 10 mcg/mL Premix Drip 250 / 250 500 / 500 2,500 mcg In 250 ml @ 50 MCG/HR 5 mls/hr IV.SIG TITRATE PRN Rx #:[id number] Keppra Inj 500 MG In NS Inj 100 105 / 105 105 / 105 ML @ 400 mls/hr IV.SIG Q12H MAEVE Rx#:[id number] Intake (Blood Product) Amt 400 / 400 0 / 0 Rbc As-3 Leukoreduced Unit 400 / 400 [id number] Rbc As-3 Leukoreduced Unit 0 / 0 [id number] Output: Urine Amount (Catheter) 850 / 850 1050 / 1050 Indwelling Urethral Catheter 850 / 850 1050 / 1050 Gastric Drainage 150 / 150 150 / 150 Oral Orogastric Tube 150 / 150 150 / 150 Chest Tube Drainage 455 / 455 #1 Right Upper 425 / 425 0 / 0 Left Upper / 30 - Routine HEENT Exam Eye: Present: periorbital ecchymosis (eyelid/chin wound margins well approxiamted, sutures intact, hemosatic no signs of infection bleeding pus ) - Urinary Catheter Management Indwelling Urethral Catheter Cath placed during this visit: yes Reason for continuing: Hourly intake/output Insertion date: 08/05/18 Insertion time: 00:00 Results - Labs CBC & Chem 7: 08/07/18 03:40 08/07/18 03:40 Laboratory Results - last 24 hr 08/04/18 08/06/18 08/07/18 21:53 17:14 03:40 WBC RBC Hgb Hct MCV MCH MCHC RDW Plt Count MPV Prelim Diff (Auto) Neut % (Auto) Lymph % (Auto) [place] % (Auto) Eos % (Auto) Baso % (Auto) Neut # (Auto) Lymph # (Auto) [place] # (Auto) Eos # (Auto) Baso # (Auto) WBC Differential Seg Neuts % (Manual) Band Neuts % (Manual) Lymphocytes % (Manual) Monocytes % (Manual) Metamyelocytes % (Man) Abs Neuts (Manual) Differential Comment Platelet Estimate Platelet Morphology Puncture Site Left radial Patient Temperature 98.6 O2 Saturation 92 ABG pH 7.33 L ABG pCO2 38 ABG pO2 79 ABG HCO3 20 L ABG O2 Content 10.9 L ABG Base Excess -5.1 L ABG Methemoglobin 1.6 [place] Test Present Hemoglobin 8.3 L Carboxyhemoglobin 1.2 O2 Delivery Device Ventilator Vent Setting Prvc/ac Inspired O2 100 Critical Value No Sodium 149 H Potassium 4.2 D Chloride 119 H Carbon Dioxide 21.5 Anion Gap 9 BUN 18 Creatinine 0.58 Estimated GFR Greater than 89 Random Glucose 130 H Calcium 6.6 L* Calcium Adj for Albumin 8.1 L Albumin 2.1 L Blood Type Antibody Screen MTS Gel Crossmatch See Detail Bld Prod Order Comment 08/07/18 08/07/18 08/07/18 03:40 05:20 08:18 WBC 13.5 H RBC 1.88 L Hgb 6.4 L* D Hct 18.7 L* MCV 99.7 MCH 33.8 MCHC 34.0 RDW 16.4 Plt Count 92 L MPV 9.6 Prelim Diff (Auto) Slide review pending Neut % (Auto) 89.1 H Lymph % (Auto) 5.9 L [place] % (Auto) 4.9 Eos % (Auto) 0.0 Baso % (Auto) 0.1 Neut # (Auto) 12.0 H Lymph # (Auto) 0.8 L [place] # (Auto) 0.7 Eos # (Auto) 0.0 Baso # (Auto) 0.0 WBC Differential Manual diff final Seg Neuts % (Manual) 74 H Band Neuts % (Manual) 14 H Lymphocytes % (Manual) 7 L Monocytes % (Manual) 3 Metamyelocytes % (Man) 2 H Abs Neuts (Manual) 12.2 H Differential Comment . Platelet Estimate Low L Platelet Morphology Normal Puncture Site Patient Temperature O2 Saturation ABG pH ABG pCO2 ABG pO2 ABG HCO3 ABG O2 Content ABG Base Excess ABG Methemoglobin [place] Test Hemoglobin Carboxyhemoglobin O2 Delivery Device Vent Setting Inspired O2 Critical Value Sodium Potassium Chloride Carbon Dioxide Anion Gap BUN Creatinine Estimated GFR Random Glucose Calcium Calcium Adj for Albumin Albumin Blood Type B Positive Antibody Screen Negative MTS Gel Crossmatch See Detail See Detail Bld Prod Order Comment 08/07/18 08/07/18 08:18 09:40 WBC RBC Hgb Hct MCV MCH MCHC RDW Plt Count MPV Prelim Diff (Auto) Neut % (Auto) Lymph % (Auto) [place] % (Auto) Eos % (Auto) Baso % (Auto) Neut # (Auto) Lymph # (Auto) [place] # (Auto) Eos # (Auto) Baso # (Auto) WBC Differential Seg Neuts % (Manual) Band Neuts % (Manual) Lymphocytes % (Manual) Monocytes % (Manual) Metamyelocytes % (Man) Abs Neuts (Manual) Differential Comment Platelet Estimate Platelet Morphology Puncture Site Left radial Patient Temperature 98.6 O2 Saturation 92 ABG pH 7.41 ABG pCO2 34 L ABG pO2 70 ABG HCO3 21 L ABG O2 Content 11.1 L ABG Base Excess -2.7 L ABG Methemoglobin 1.3 [place] Test Y Hemoglobin 8.5 L Carboxyhemoglobin 1.6 O2 Delivery Device Ventilator Vent Setting [id number] Inspired O2 45 Critical Value No Sodium Potassium Chloride Carbon Dioxide Anion Gap BUN Creatinine Estimated GFR Random Glucose Calcium Calcium Adj for Albumin Albumin Blood Type Antibody Screen MTS Gel Crossmatch Bld Prod Order Comment Microbiology 08/05/18 00:00 Catheterized Urine Urine Culture - Final No growth in 48 hours - Imaging Impressions Chest CTA 08/06/18 00:00 CONCLUSION: 1. Bibasilar consolidation. 2. Small bilateral pneumothoraces. 3. No definite pulmonary embolism. Chest X-Ray 08/06/18 09:55 CONCLUSION: 1. Reduction in size of the right pneumothorax with small apical pneumothorax remaining. 2. Bilateral pleural effusions and left lung base consolidation. Right lung base consolidation is difficult to exclude. Chest X-Ray 08/06/18 16:35 CONCLUSION: Small bilateral pneumothoraces slightly larger on the right. Chest X-Ray 08/07/18 06:00 CONCLUSION: Persistent small right apical pneumothorax. Improving aeration in the lung bases. Assessment and Plan - Plan s/p repair of complex chin/left eyelid lacerations wound sites stable plan for removal of sutures in 7 days
[2018-08-07 12:13] LABS: Hematocrit 25.2 % (35.0-46.0); Hemoglobin 8.8 gm/dL (11.6-15.3)
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
[2018-08-07] MEDS: MINERAL OIL LEFT EYE SCH ×3 (14:00→21:07)
[2018-08-07] MEDS: [UNRECOGNIZED DRUG - OTHER] LEFT EYE SCH ×3 (14:00→21:07)
[2018-08-07] MEDS ORDERED: Adenosine Inj 6 MG/2 ML Syringe IV.PUSH ONE ×2 (21:27→22:00)
--- NOTE | 2018-08-07 22:09 | XR ---
EXAM DATE: 08/07/2018 10:04 PM EST AGE/SEX: 33 years / Female INDICATIONS: Short of breath, post chest tube placement. CLINICAL DATA: This is the patient's subsequent encounter. Patient reports that signs and symptoms h ave been present for 4 - 6 days and indicates a pain score of 0/10. MEDICAL/SURGICAL HISTORY: . Smoker. . T1, T2 fracture. Pleural effusion. Left patella fracture . Right Distal femur fracture. Head injury. Hypovolemic hemorrhagic shock. Left scapula fracture. Lisha er laceration. Contusion, pancreas. Non-responsive. COMPARISON: [facility], CHEST 1V SINGLE AP, 08/07/2018. . FINDINGS: A single AP view of the chest demonstrates bilateral thoracostomy. A small apical pneumothorax is see n bilaterally. The right is slightly larger than the left. Both are stable from the prior exam. Conso lidation is again noted within the right lung base. Heart is normal in size. Endotracheal tube tip 5 centimeters from the edward. Left-sided central line and nasogastric tube. CONCLUSION: Bilateral thoracostomy tubes with persistent small apical pneumothoraces. Electronically signed by: Marino Vora MD Board Certified Radiologist 08/07/2018 10:07 PM EST
[2018-08-07 22:19] LABS: Troponin I 0.06 ng/mL (0.02-0.05)
[2018-08-07 22:52] LABS: Magnesium 2.2 mg/dL (1.5-2.5)
[2018-08-07 23:17] LABS: CKMB Percent 0.1 % (0.0-4.0); Creatine Kinase MB 4.9 ng/mL (0.5-3.6)
[2018-08-07] MEDS: Pantoprazole Inj 40 MG Vial IV.PUSH SCH (23:55)
[2018-08-08] MEDS: Sodium Chloride 0.45 % Inj 1,000 ML IV.CONT SCH (03:48)
[2018-08-08] MEDS: Chlorhexidine Gluconate 2% 1 Pack (2 Cloths) TOPICAL SCH (03:48)
[2018-08-08] MEDS: fentaNYL 10 mcg/mL Premix Drip 2,500 MCG/250 ML BAG IV.SIG PRN ×2 (03:49→13:58)
[2018-08-08] MEDS: Oral Hygiene Kit OROPHARYNG SCH ×3 (03:49→17:43)
[2018-08-08 05:42] LABS: ABG Base Excess -1.2 mmol/L (-2-2); ABG PCO2 30 mmHg (38-42); ABG PO2 84 mmHg (61-120)
[2018-08-08 06:09] LABS: Baso % (Auto) 0.1 % (0.0-2.0); Hematocrit 21.9 % (35.0-46.0); Hemoglobin 7.7 gm/dL (11.6-15.3); Lymph # (Auto) 0.8 th/mm3 (1.0-4.8); Lymph % (Auto) 9.2 % (9.0-44.0); Mean Corpuscular HGB Conc 35.2 % (32.0-36.0); Mean Corpuscular Hemoglobin 33.6 pg (27.0-34.0); Mean Corpuscular Volume 95.6 fL (80.0-100.0); Mean Platelet Volume 8.8 fL (7.0-11.0); Mono # (Auto) 0.6 th/mm3 (0.0-0.9); Mono % (Auto) 6.7 % (0.0-8.0); Neut # (Auto) 7.4 th/mm3 (1.8-7.7); Platelet Count 75 th/mm3 (150-450); Red Blood Count 2.29 mil/mm3 (4.00-5.30); Red Cell Distribution Width 16.3 % (11.6-17.2); White Blood Count 8.9 th/mm3 (4.0-11.0)
[2018-08-08 06:46] LABS: Alanine Aminotransferase 97 U/L (10-53); Albumin 1.9 g/dL (3.4-5.0); Alkaline Phosphatase 49 U/L (45-117); Anion Gap 8 meq/L (5-15); Aspartate Aminotransferase 106 U/L (15-37); Blood Urea Nitrogen 11 mg/dL (7-18); Calcium 7.1 mg/dL (8.5-10.1); Carbon Dioxide 23.6 meq/L (21.0-32.0); Chloride 118 meq/L (98-107); Glomerular Filtration Rate Greater Than 89 mL/min (>89); Glucose,Random 99 mg/dL (74-106); Potassium 3.4 meq/L (3.5-5.1); Sodium 150 meq/L (136-145); Total Protein 5.1 g/dL (6.4-8.2)
[2018-08-08 07:06] LABS: Lymphocytes 9 % (9-44); Metamyelocytes 1 % (0-1); Monocytes 3 % (0-8)
[2018-08-08 07:07] LABS: Platelet Morphology Normal (Normal)
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
[2018-08-08] MEDS ORDERED: ceFAZolin 2 GM Premix Inj 2 GM/50 ML PIGGYBACK IV.SIG ONE ×2 (08:36→12:23)
[2018-08-08] MEDS: Chlorhexidine 0.12% Oral Kit 15 ML UDC OROPHARYNG SCH ×2 (09:04→20:09)
[2018-08-08] MEDS: Enoxaparin Inj 30 MG/0.3 ML Syringe SQ SCH ×2 (09:04→20:35)
[2018-08-08] MEDS: Senna/Docusate Sodium 8.6/50 MG Tablet PO SCH ×2 (09:05→20:09)
[2018-08-08] MEDS: [UNRECOGNIZED DRUG - OTHER] LEFT EYE SCH ×4 (09:05→20:09)
[2018-08-08] MEDS: MINERAL OIL LEFT EYE SCH ×4 (09:05→20:09)
[2018-08-08] MEDS: [UNRECOGNIZED DRUG - OTHER] LEFT EYE SCH ×2 (09:05→20:10)
[2018-08-08] MEDS: Sodium Chloride 0.9% 2 ML Flush BID IV.FLUSH SCH ×2 (09:05→20:09)
[2018-08-08] MEDS: Potassium Chlor 20 mEq Premix 20 MEQ/100 ML PIGGYBACK IV.SIG PRN ×2 (10:45→12:45)
[2018-08-08] MEDS ORDERED: SODIUM CHLOR 0.9% IV.SIG SCH (11:30)
[2018-08-08] MEDS ORDERED: TRANEXAMIC ACID IV.SIG SCH (11:30)
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
[2018-08-08] MEDS ORDERED: Tobramycin Sulfate 1,200 MG Vial (for ortho/sterile core) OTHER ONE (11:49)
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
--- NOTE | 2018-08-08 11:58 | ECG ---
Date Performed: 08/07/2018 Time Performed: 21:21:42 PTAGE: 33 years EKG: SUPRAVENTRICULAR TACHYCARDIA DIFFUSE ST-T ABNORMALITIES CANNOT EXCLUDE ISCHEMIA Abnormal EC G NO PREVIOUS TRACING DOCTOR: Naveed Goyal Interpretating Date/Time 08/08/2018 11:57:02
[2018-08-08] MEDS ORDERED: Post-op Orders (for Pharmacy) OTHER STA (12:40)
--- NOTE | 2018-08-08 12:49 | P.OP ---
- Preoperative Diagnosis (1) Open displaced supracondylar fracture of distal end of right femur with intracondylar extension Date of procedure: 08/08/18 Procedure: Irrigation and debridement of open right femur fracture, removal of external fixation, open reduction internal fixation comminuted intra-articular supracondylar right femur fracture, placement of antibiotic spacer Anesthesia: GETA Surgeon: Nitish Banda MD Airbrush Painter: BETSY Orellana PA-C The surgical procedure was assisted by my physician hospital medical assistant. My P.A. presence was necessary throughout this case for the manipulation and positioning of the surgical extremity. My P.A. was assisting me throughout the duration of this procedure. The skill set of a physician hospital medical assistant was medically necessary to complete this procedure. During the surgical case the surgical resident was working at the back table and the physician hospital medical assistant was directly assisting me. Operation and Findings: Implants used: ITS Plan of activity: Nonweightbearing, passive range of motion of knee Details of procedure: Informed consent was obtained, operative site was marked. Patient was brought to the OR, placed on OR table, and given IV sedation with GETA. IV antibiotics were administered. A timeout procedure was performed. Procedure began with a removal of a portion of the external fixation. Clamps were loosened. Clamps and bars were removed. The pins were left in place at this time. Next, the operative leg was prepped with alcohol, followed with Hibiclens, draped in usual sterile fashion. A 6-inch incision was made over the lateral aspect of the distal femur. Subcutaneous tissue was dissected with Bovie. Iliotibial band was split in line with fibers. At this point the fracture was visualized. The fracture was severely comminuted. Because of the open nature of the injury attention was now turned towards irrigation debridement of the fracture. Multiple small bone fragments were removed. Curettes were used to debride the edges of the bone. An excisional debridement was performed. After completion of the excisional debridement, soft tissue and bone were thoroughly irrigated with pulsatile lavage. Next attention was turned to reduction of fracture. Traction was applied. Fracture was manipulated. The fracture reduced into appropriate gross alignment. Using the external fixator pins that were already in place, and external fixation device was constructed to aid in reduction of fracture. The intra-articular fragment was visualized. The medial and lateral condyles of the distal femur were reduced. Excellent alignment was achieved. The metaphyseal region was severely comminuted. At this point attention was turned to plate placement. A lateral condylar plate was selected and attached to the insertion handle jig. The plate was placed underneath the vastus lateralis. Steinmann pins were used to hold the plate to bone. Multiplanar fluoroscopy confirmed appropriate placement of plate. Multiple 4.5 cortical screws were now placed in percutaneous fashion through the plate. The plate was compressed to bone. Multiple locking screws were now placed in the distal segment of the distal femur. Additional screws were placed into the femoral shaft. All screws were predrilled and premeasured for appropriate length. Final fluoroscopy revealed excellent alignment of fracture with well-placed hardware. Wound was thoroughly irrigated. At this point attention was turned to antibiotic spacer placement. There was a large defect in the metaphyseal region. 20 cc of stimulant bone cement was mixed with 2 g of vancomycin and 2 g of tobramycin. Once the beads were completely set the defect was filled with antibiotic spacer. Next, attention was turned to wound closure. Fascia was closed with #1 PDS. Subcutaneous tissue was closed with 3-0 PDS. Skin was closed with roby. Sterile dressings were applied. The remaining external fixator pins were now removed. The patient was placed into a knee immobilizer and transferred to intensive care in stable condition. Needle and sponge counts were correct.
[2018-08-08] MEDS ORDERED: ceFAZolin Inj 2,000 MG in Sodium Chlor 0.9% Inj 80 ML IV.SIG SCH (13:00)
[2018-08-08] MEDS ORDERED: Vancomycin Inj 1 GM/200 ML PIGGYBACK IV.SIG SCH (13:00)
[2018-08-08] MEDS ORDERED: fentaNYL Citrate Inj 100 MCG/2 ML Ampul ONE (13:26)
[2018-08-08] MEDS: Midazolam 100 MG/100 ML Inj 100 MG/100 ML BAG IV.CONT PRN (13:59)
[2018-08-08] MEDS: Calcium/Vitamin D 250/125 MG Tablet PO SCH ×2 (14:00→17:47)
--- NOTE | 2018-08-08 14:28 | XR ---
EXAM DATE: 08/08/2018 2:22 PM EST AGE/SEX: 33 years / Female INDICATIONS: Tramua left heel. CLINICAL DATA: This is the patient's initial encounter. Patient reports that signs and symptoms have been present for 1 day and indicates a pain score of Nonresponsive. MEDICAL/SURGICAL HISTORY: None. None. COMPARISON: No prior exams available for comparison. FINDINGS: 2 magnified C-arm spot views are lateral projections centered over the ankle joint. These are labeled left. A metallic probe projects towards the posterior inferior margin of the calcaneus. CONCLUSION: Limited images as detailed above. Electronically signed by: Marino Vora MD Board Certified Radiologist 08/08/2018 2:27 PM EST
--- NOTE | 2018-08-08 14:41 | XR ---
EXAM DATE: 08/08/2018 2:34 PM EST AGE/SEX: 33 years / Female INDICATIONS: Orif left femur. CLINICAL DATA: This is the patient's subsequent encounter. Patient reports that signs and symptoms h ave been present for 4 - 6 days and indicates a pain score of Nonresponsive. MEDICAL/SURGICAL HISTORY: None. None. COMPARISON: [facility] [place]EE LIMITED LEFT , 08/05/2018. . FINDINGS: 8 images of the distal femur are recorded digitally in the operating room with C-arm during placement of a lateral femoral plate and round beads in the distal diametaphysis of the femur. CONCLUSION: Intraoperative images. Electronically signed by: Marino Ji MD Board Certified Radiologist 08/08/2018 2:39 PM EST
--- NOTE | 2018-08-08 16:42 | CT ---
EXAM DATE: 08/08/2018 4:30 PM EST AGE/SEX: 33 years / Female INDICATIONS: Evaluate right calcaneus fracture. CLINICAL DATA: This is the patient's initial encounter. Patient reports that signs and symptoms have been present for 4 - 6 days and indicates a pain score of Nonresponsive. MEDICAL/SURGICAL HISTORY: Non-responsive. Non-responsive. RADIATION DOSE: 5.16 CTDI (mGy) COMPARISON: No prior exams available for comparison. TECHNIQUE: Multiple contiguous axial images were acquired using a multirow detector CT scanner witho ut contrast. Multiplanar reconstruction was performed in the sagittal and coronal planes. Using aut omated exposure control and adjustment of the mA and/or kV according to patient size, radiation dose was kept as low as reasonably achievable to obtain optimal diagnostic quality images. DICOM format i mage data is available electronically for review and comparison. FINDINGS: There is a comminuted fracture of the calcaneus with the largest fracture lines through the mid body and posterior aspect and involvement of all 3 facets. There is mild displacement of the fracture line s and there is loss of the calcaneal angle. No dislocation at the facets, but there is hairline fract ures extending into the facets. No fragment in the tarsal sinus. No additional hindfoot fractures see n. No radiopaque foreign bodies.. CONCLUSION: 1. Numerous comminuted calcaneal fractures including all 3 facets and with flattening of the calcane al angle. Electronically signed by: Marino Ji MD Board Certified Radiologist 08/08/2018 4:40 PM EST
[2018-08-08] MEDS: ceFAZolin 2 GM Premix Inj 2 GM/50 ML PIGGYBACK IV.SIG SCH (20:08)
[2018-08-08] MEDS: levETIRAcetam 500 MG Tablet PO SCH (20:09)
[2018-08-08 21:11] LABS: Hematocrit 24.8 % (35.0-46.0); Hemoglobin 8.5 gm/dL (11.6-15.3)
[2018-08-08] MEDS: Vancomycin Inj 1,000 MG in Sodium Chlor 0.9% Inj 250 ML IV.SIG SCH (23:58)
[2018-08-09] MEDS: Oral Hygiene Kit OROPHARYNG SCH ×4 (00:01→17:09)
[2018-08-09] MEDS: fentaNYL 10 mcg/mL Premix Drip 2,500 MCG/250 ML BAG IV.SIG PRN ×2 (00:31→17:08)
[2018-08-09] MEDS: Chlorhexidine Gluconate 2% 1 Pack (2 Cloths) TOPICAL SCH (03:44)
[2018-08-09] MEDS: ceFAZolin 2 GM Premix Inj 2 GM/50 ML PIGGYBACK IV.SIG SCH ×3 (03:44→21:08)
[2018-08-09] MEDS: Midazolam 100 MG/100 ML Inj 100 MG/100 ML BAG IV.CONT PRN (03:44)
[2018-08-09 04:51] LABS: Hematocrit 24.1 % (35.0-46.0); Hemoglobin 8.2 gm/dL (11.6-15.3)
[2018-08-09 05:34] LABS: ABG Base Excess 2.3 mmol/L (-2-2); ABG PCO2 35 mmHg (38-42); ABG PO2 65 mmHg (61-120)
--- NOTE | 2018-08-09 06:02 | XR ---
EXAM DATE: 08/09/2018 3:47 AM EST AGE/SEX: 33 years / Female INDICATIONS: Pneumothorax. CLINICAL DATA: This is the patient's subsequent encounter. Patient reports that signs and symptoms h ave been present for 4 - 6 days and indicates a pain score of Nonresponsive. MEDICAL/SURGICAL HISTORY: . Smoker. . T1, T2 fracture. Pleural effusion. Left patella fracture . Right Distal femur fracture. Head injury. Hypovolemic hemorrhagic shock. Left scapula fracture. Lisha er laceration. Contusion, pancreas. Non-responsive. Non-responsive. Smoker. . T1, T2 fracture. Pleu ral effusion. Left patella fracture. Right Distal femur fracture. Head injury. Hypovolemic hemorrhagi c shock. Left scapula fracture. Liver laceration. Contusion, pancreas. COMPARISON: [facility] – [place], CHEST 1V SINGLE AP, 08/07/2018. . FINDINGS: Endotracheal tube tip is present in good position 4 cm above the edward. Nasogastric tube descends in to the stomach. Left subclavian central line is stable in good position. Bilateral thoracostomy tubes are again noted. There is minimal residual medial right apical pneumothorax. Left apical pneumothora x is grossly stable at just over centimeter. There is persistent basilar consolidative change, roughl y stable on the right and slightly worse on the left. Visualized cardiac contours are unchanged. CONCLUSION: Slight interval worsening in left base aeration. Persistent left apical pneumothorax. Electronically signed by: Naun Yepez MD Board Certified Radiologist 08/09/2018 6:00 AM EST
--- NOTE | 2018-08-09 07:58 | P.PNOP ---
Subjective Interval history: POD 1 s/p ORIF right distal femur POD 4 s/p ORIF left patella fx s/p right calcaneus fx intubated/sedated. no changes Physical Exam Vital signs: Vital Signs 08/08/18 08:00 08/08/18 08:30 08/08/18 08:58 Temperature 99.0 F 98.8 F Pulse Rate 99 H 99 H 94 H Respiratory Rate 18 18 17 Blood Pressure 111/64 112/58 L 114/64 Pulse Oximetry 95 95 97 08/08/18 09:00 08/08/18 09:13 08/08/18 09:30 Temperature Pulse Rate 96 H 95 H 94 H Respiratory Rate 18 18 18 Blood Pressure 114/64 108/60 110/60 Pulse Oximetry 97 96 95 08/08/18 10:00 08/08/18 10:30 08/08/18 11:00 Temperature 98.7 F Pulse Rate 97 H 90 90 Respiratory Rate 18 18 18 Blood Pressure 109/66 114/66 114/66 Pulse Oximetry 97 97 97 08/08/18 11:15 08/08/18 11:50 08/08/18 11:53 Temperature 98.2 F Pulse Rate 102 H Respiratory Rate Blood Pressure 126/72 123/67 Pulse Oximetry 97 100 08/08/18 11:56 08/08/18 11:59 08/08/18 12:00 Temperature 98.2 F 98.1 F 98.1 F Pulse Rate 103 H 103 H 104 H Respiratory Rate Blood Pressure 130/65 132/71 Pulse Oximetry 100 96 96 08/08/18 12:02 08/08/18 12:05 08/08/18 12:09 Temperature 98.1 F 98.1 F 98.1 F Pulse Rate 102 H 103 H 102 H Respiratory Rate Blood Pressure 124/63 137/67 126/59 L Pulse Oximetry 94 L 95 92 L 08/08/18 12:12 08/08/18 12:15 08/08/18 12:18 Temperature 98.1 F 98.1 F 98.1 F Pulse Rate 102 H 101 H 101 H Respiratory Rate Blood Pressure 134/63 128/65 124/60 Pulse Oximetry 92 L 94 L 96 08/08/18 12:21 08/08/18 12:24 08/08/18 12:27 Temperature 98.1 F 98.1 F 98.1 F Pulse Rate 101 H 100 H 100 H Respiratory Rate Blood Pressure 121/62 128/63 130/66 Pulse Oximetry 97 97 97 08/08/18 12:30 08/08/18 12:33 08/08/18 12:36 Temperature 98.2 F 98.2 F 98.2 F Pulse Rate 100 H 100 H 100 H Respiratory Rate Blood Pressure 121/57 L 120/59 L 120/59 L Pulse Oximetry 97 97 97 08/08/18 12:39 08/08/18 12:42 08/08/18 12:48 Temperature 98.2 F 98.2 F Pulse Rate 100 H 103 H 103 H Respiratory Rate Blood Pressure 119/60 119/59 L 120/59 L Pulse Oximetry 96 95 95 08/08/18 12:51 08/08/18 12:54 08/08/18 12:57 Temperature Pulse Rate 101 H 101 H 101 H Respiratory Rate Blood Pressure 121/55 L 120/58 L 116/58 L Pulse Oximetry 95 95 96 08/08/18 13:00 08/08/18 13:03 08/08/18 13:06 Temperature 98.4 F Pulse Rate 101 H 100 H 99 H Respiratory Rate Blood Pressure 117/59 L 117/57 L 118/57 L Pulse Oximetry 97 98 98 08/08/18 14:00 08/08/18 15:00 08/08/18 15:13 Temperature Pulse Rate 87 88 Respiratory Rate 18 18 18 Blood Pressure Pulse Oximetry 100 100 100 08/08/18 15:15 08/08/18 16:00 08/08/18 16:34 Temperature 99.3 F Pulse Rate 90 95 H Respiratory Rate 18 18 Blood Pressure 120/79 Pulse Oximetry 100 100 08/08/18 17:00 08/08/18 17:24 08/08/18 18:00 Temperature Pulse Rate 96 H 106 H 97 H Respiratory Rate 18 20 18 Blood Pressure 134/80 122/67 Pulse Oximetry 100 99 100 08/08/18 19:00 08/08/18 19:31 08/08/18 20:00 Temperature 99.2 F Pulse Rate 99 H 101 H Respiratory Rate 18 19 20 Blood Pressure 118/61 123/63 Pulse Oximetry 100 99 95 08/08/18 21:00 08/08/18 21:06 08/08/18 22:00 Temperature Pulse Rate 101 H 100 H 108 H Respiratory Rate 18 19 22 Blood Pressure 124/61 125/70 Pulse Oximetry 96 95 08/08/18 23:00 08/08/18 23:21 08/09/18 00:00 Temperature 102.8 F H Pulse Rate 105 H 116 H Respiratory Rate 22 21 22 Blood Pressure 129/67 131/80 Pulse Oximetry 91 L 95 97 08/09/18 00:29 08/09/18 01:00 08/09/18 02:00 Temperature Pulse Rate 103 H 118 H 111 H Respiratory Rate 23 19 Blood Pressure 122/83 115/57 L Pulse Oximetry 94 L 96 08/09/18 03:02 08/09/18 03:09 08/09/18 03:11 Temperature Pulse Rate 104 H 102 H Respiratory Rate 19 19 19 Blood Pressure 112/56 L Pulse Oximetry 97 97 08/09/18 04:00 08/09/18 05:00 08/09/18 06:00 Temperature 100.1 F H Pulse Rate 110 H 103 H 101 H Respiratory Rate 20 19 19 Blood Pressure 114/63 113/63 112/60 Pulse Oximetry 96 98 96 Intake & Output 08/08/18 08/09/18 08/09/18 18:59 06:59 18:59 Intake Total 2416.49 / 2416.49 750 / 750 Output Total 150 / 150 1795 / 1795 Balance 2266.49 / 2266.49 -1045 / -1045 Weight 80.8 kg Intake: IV 1216.49 / 1216.49 550 / 550 Versed Inj 100 mg In 100 ml @ 2 100 / 100 MG/HR 2 mls/hr IV.CONT TITRATE PRN Rx#:[id number] 1/2 Normal Saline Inj 1,000 ML 400 / 400 @ 60 mls/hr IV.CONT .[id number] [facility] Rx#:[id number] KCl 20 mEq Premix Inj 20 meq In 200 / 200 100 ml @ 50 mls/hr IV.SIG Q2H PRN Rx#:[id number] Cyklokapron Inj 1,149 MG In NS 111.49 / 111.49 Inj 100 ML @ 200 mls/hr IV.SIG ONCE [facility] Rx#:[id number] Vancomycin Inj 1,000 MG In NS 250 / 250 Inj 250 ML @ 250 mls/hr IV.SIG Q12H [facility] Rx#:[id number] Ancef 2 GM Premix Inj 2 gm In 50 / 50 50 / 50 50 ml @ 100 mls/hr IV.SIG Q8H [facility] Rx#:[id number] fentaNYL 10 mcg/mL Premix Drip 250 / 250 250 / 250 2,500 mcg In 250 ml @ 50 MCG/HR 5 mls/hr IV.SIG TITRATE PRN Rx #:[id number] Keppra Inj 500 MG In NS Inj 100 105 / 105 ML @ 400 mls/hr IV.SIG Q12H [facility] Rx#:[id number] Free Water Amount 200 / 200 200 / 200 Anesthesia Amount 600 / 600 Intake (Blood Product) Amt 400 / 400 Rbc As-3 Leukoreduced Unit 400 / 400 [id number] Output: Estimated Blood Loss 150 / 150 Urine Amount (Catheter) 1774 Indwelling Urethral Catheter 1774 Chest Tube Drainage #1 Right Upper 0 / 0 Left Upper Narrative: RLE: dressings clean and dry. intact. NVI. +CKS. +short leg splint LLE: dressings clean and dry. intact. +CKS - Urinary Catheter Management Indwelling Urethral Catheter Cath placed during this visit: yes Reason for continuing: Hourly intake/output Insertion date: 08/05/18 Insertion time: 00:00 Results - Labs CBC & Chem 7: 08/09/18 04:40 08/08/18 20:50 Laboratory Results - last 24 hr 08/07/18 08/07/18 08/08/18 05:20 08:18 20:50 Hgb Hct Puncture Site Patient Temperature O2 Saturation ABG pH ABG pCO2 ABG pO2 ABG HCO3 ABG O2 Content ABG Base Excess ABG Methemoglobin Bereket Test Hemoglobin Carboxyhemoglobin O2 Delivery Device Vent Setting Inspired O2 Critical Value Potassium 3.6 MTS Gel Crossmatch See Detail See Detail 08/08/18 08/09/18 08/09/18 20:50 04:40 05:23 Hgb 8.5 L 8.2 L Hct 24.8 L 24.1 L Puncture Site Left radial Patient Temperature 98.6 O2 Saturation 92 ABG pH 7.48 H ABG pCO2 35 L ABG pO2 65 ABG HCO3 26 ABG O2 Content 11.3 L ABG Base Excess 2.3 H ABG Methemoglobin 1.1 Bereket Test Present Hemoglobin 8.7 L Carboxyhemoglobin 1.5 O2 Delivery Device Vent Vent Setting Prvc/ac Inspired O2 65 Critical Value No Potassium MTS Gel Crossmatch - Imaging Impressions Ankle CT 08/08/18 00:00 CONCLUSION: 1. Numerous comminuted calcaneal fractures including all 3 facets and with flattening of the calcaneal angle. Femur X-Ray 08/08/18 00:00 CONCLUSION: Intraoperative images. Foot X-Ray 08/08/18 00:00 CONCLUSION: Limited images as detailed above. Chest X-Ray 08/09/18 06:00 CONCLUSION: Slight interval worsening in left base aeration. Persistent left apical pneumothorax. Assessment and Plan - Assessment and Plan 1) Right Calcaneus Fracture 2) Right distal Femur Fracture s/p ORIF - POD 1 3) Left Patella Fracture s/p ORIF - POD 4 -patient was found ot have a right calcaneus fracture. after reviewing CT, will need definitive fixation -plan for surgery mon/tues for ORIF of calcaneus -maintain splint and NWB RLE -daily dressing changes of left patella and right knee on POD 2 -surgeries complete of right femur and left patella
[2018-08-09] MEDS: Enoxaparin Inj 30 MG/0.3 ML Syringe SQ SCH ×2 (09:24→21:21)
[2018-08-09] MEDS: levETIRAcetam 500 MG Tablet PO SCH ×2 (09:24→21:21)
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
[2018-08-09] MEDS: Chlorhexidine 0.12% Oral Kit 15 ML UDC OROPHARYNG SCH ×2 (09:25→21:21)
[2018-08-09] MEDS: Sodium Chloride 0.9% 2 ML Flush BID IV.FLUSH SCH ×2 (09:25→21:22)
[2018-08-09] MEDS: Senna/Docusate Sodium 8.6/50 MG Tablet PO SCH ×2 (09:25→21:22)
[2018-08-09] MEDS: Calcium/Vitamin D 250/125 MG Tablet PO SCH ×3 (09:25→17:09)
[2018-08-09] MEDS: Famotidine 20 MG Tablet PO SCH ×2 (09:25→21:22)
[2018-08-09] MEDS: [UNRECOGNIZED DRUG - OTHER] LEFT EYE SCH ×4 (09:26→21:22)
[2018-08-09] MEDS: MINERAL OIL LEFT EYE SCH ×4 (09:26→21:22)
[2018-08-09] MEDS: [UNRECOGNIZED DRUG - OTHER] LEFT EYE SCH ×2 (09:32→21:21)
--- NOTE | 2018-08-09 11:54 | P.RAD ---
Post Procedure Progress Note - Pre Procedure Diagnosis (1) Pneumothorax, left - Post Procedure Diagnosis (1) Pneumothorax, left - Procedure Information Procedure Date: 08/09/18 Supervising Radiologist: Marino Vora Jr, MD Proceduralist/Assist: Haider Hoyos Anesthesia: Other - Plan of Activity Patient to Unit: Critical Care Patient Condition: Fair Additional Comments: Surgically placed left thoracostomy tube repositioned into the apex. See PACS Report for procedural detail/treatment.
[2018-08-09] MEDS: Vancomycin Inj 1,000 MG in Sodium Chlor 0.9% Inj 250 ML IV.SIG SCH (12:50)
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
[2018-08-10] MEDS: Oral Hygiene Kit OROPHARYNG SCH ×5 (00:45→23:55)
[2018-08-10] MEDS: ceFAZolin 2 GM Premix Inj 2 GM/50 ML PIGGYBACK IV.SIG SCH ×2 (03:14→12:29)
--- NOTE | 2018-08-10 04:52 | XR ---
EXAM DATE: 08/10/2018 4:11 AM EST AGE/SEX: 33 years / Female INDICATIONS: Shortness of breath. CLINICAL DATA: This is the patient's subsequent encounter. Patient reports that signs and symptoms h ave been present for 1 week and indicates a pain score of Nonresponsive. MEDICAL/SURGICAL HISTORY: . Smoker. T1, T2 fracture. Pleural effusion. Left patella fracture. R ight Distal femur fracture. Head injury. Hypovolemic hemorrhagic shock. Left scapula fracture. Liver laceration. Contusion, pancreas Non-responsive. COMPARISON: [facility] – [place], CHEST 1V SINGLE AP, 08/09/2018. . FINDINGS: Endotracheal tube, nasogastric tube and left subclavian central line are stable. Right lateral pigtai l thoracostomy tube remains in place. A left thoracostomy tube has been replaced remanipulated into t he left apex. Left pneumothorax is resolved. No evidence of right pneumothorax. Hazy bibasilar pleura l-parenchymal opacities are slightly improved. CONCLUSION: Interval repositioning of left thoracostomy tube with resolution of left pneumothorax. Continued impr ovement in aeration. Electronically signed by: Naun Yepez MD Board Certified Radiologist 08/10/2018 4:51 AM EST
[2018-08-10 05:36] LABS: ABG Base Excess 4.9 mmol/L (-2-2); ABG PCO2 38 mmHg (38-42); ABG PO2 69 mmHg (61-120)
[2018-08-10 05:57] LABS: Baso % (Auto) 0.2 % (0.0-2.0); Eos % (Auto) 0.2 % (0.0-4.0); Hematocrit 25.7 % (35.0-46.0); Hemoglobin 8.7 gm/dL (11.6-15.3); Lymph # (Auto) 0.8 th/mm3 (1.0-4.8); Mean Corpuscular Hemoglobin 31.3 pg (27.0-34.0); Mean Corpuscular Volume 92.2 fL (80.0-100.0); Mean Platelet Volume 9.3 fL (7.0-11.0); Mono # (Auto) 0.9 th/mm3 (0.0-0.9); Mono % (Auto) 6.1 % (0.0-8.0); Neut # (Auto) 13.6 th/mm3 (1.8-7.7); Neut % (Auto) 88.5 % (16.0-70.0); Platelet Count 111 th/mm3 (150-450); Red Blood Count 2.79 mil/mm3 (4.00-5.30); Red Cell Distribution Width 18.9 % (11.6-17.2); White Blood Count 15.4 th/mm3 (4.0-11.0)
[2018-08-10 07:02] LABS: Lymphocytes 2 % (9-44); Metamyelocytes 1 % (0-1); Monocytes 5 % (0-8); Myelocytes 1 % (0-0)
[2018-08-10 07:03] LABS: Platelet Morphology Normal (Normal)
[2018-08-10 07:04] LABS: Alanine Aminotransferase 54 U/L (10-53); Albumin 1.7 g/dL (3.4-5.0); Alkaline Phosphatase 120 U/L (45-117); Anion Gap 6 meq/L (5-15); Aspartate Aminotransferase 52 U/L (15-37); Blood Urea Nitrogen 8 mg/dL (7-18); Calcium 8.2 mg/dL (8.5-10.1); Carbon Dioxide 30.4 meq/L (21.0-32.0); Chloride 109 meq/L (98-107); Glomerular Filtration Rate Greater Than 89 mL/min (>89); Glucose,Random 142 mg/dL (74-106); Sodium 145 meq/L (136-145); Total Protein 5.7 g/dL (6.4-8.2)
[2018-08-10] MEDS ORDERED: Bisacodyl 10 MG Supp RECTAL ONE (07:37)
[2018-08-10] MEDS: MINERAL OIL LEFT EYE SCH ×4 (09:03→21:53)
[2018-08-10] MEDS: [UNRECOGNIZED DRUG - OTHER] LEFT EYE SCH ×4 (09:03→21:53)
[2018-08-10] MEDS: [UNRECOGNIZED DRUG - OTHER] LEFT EYE SCH ×2 (09:03→21:52)
[2018-08-10] MEDS: Enoxaparin Inj 30 MG/0.3 ML Syringe SQ SCH ×2 (09:03→21:52)
[2018-08-10] MEDS: Potassium Chlor 40 mEq Premix 40 MEQ/100 ML PIGGYBACK IV.SIG PRN ×2 (09:04→11:27)
[2018-08-10] MEDS: levETIRAcetam 500 MG Tablet PO SCH ×2 (09:04→21:51)
[2018-08-10] MEDS: Senna/Docusate Sodium 8.6/50 MG Tablet PO SCH ×2 (09:04→21:53)
[2018-08-10] MEDS: Famotidine 20 MG Tablet PO SCH ×2 (09:04→21:53)
[2018-08-10] MEDS: Calcium/Vitamin D 250/125 MG Tablet PO SCH ×3 (09:04→18:32)
[2018-08-10] MEDS: Chlorhexidine 0.12% Oral Kit 15 ML UDC OROPHARYNG SCH ×2 (09:06→21:51)
[2018-08-10] MEDS: Sodium Chloride 0.9% 2 ML Flush BID IV.FLUSH SCH ×2 (09:07→21:53)
[2018-08-10] MEDS ORDERED: RASS Change Order MISCELLANE ONE (10:00)
[2018-08-10] MEDS: Propofol 1000 mg/100 ml Inj 1,000 MG/100 ML BOTTLE IV.CONT PRN ×2 (10:00→23:00)
[2018-08-10] MEDS: fentaNYL 10 mcg/mL Premix Drip 2,500 MCG/250 ML BAG IV.SIG PRN ×2 (11:26→23:54)
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
--- NOTE | 2018-08-10 15:02 | XR ---
EXAM DATE: 08/10/2018 2:58 PM EST AGE/SEX: 33 years / Female INDICATIONS: Shortness of breath. CLINICAL DATA: This is the patient's initial encounter. Patient reports that signs and symptoms have been present for 1 day and indicates a pain score of Nonresponsive. MEDICAL/SURGICAL HISTORY: . Smoker. T1, T2 fracture. Pleural effusion. Left patella fracture. R ight Distal femur fracture. Head injury. Hypovolemic hemorrhagic shock. Left scapula fracture. Liver laceration. Contusion, pancreas Non-responsive. . COMPARISON: [facility] – [place], CHEST 1V SINGLE AP, 08/10/2018. . FINDINGS: A single AP view of the chest demonstrates cardiomegaly with bibasilar airspace disease. Bilateral ch est tubes again seen. Small left apical pneumothorax. Endotracheal tube and left subclavian central l ine stable in position. Nasogastric tube has been called back with tip in the mid to distal esophagus . The cardiomediastinal contours are unremarkable. Osseous structures are intact. CONCLUSION: 1. Bibasilar airspace disease. 2. Bilateral chest tubes with small left apical pneumothorax. 3. Nasogastric tube with tip in the mid to distal esophagus. This should be advanced. Electronically signed by: Levar Nation MD Board Certified Radiologist 08/10/2018 3:00 PM EST
--- NOTE | 2018-08-10 17:40 | MR ---
EXAM DATE: 08/10/2018 5:33 PM EST AGE/SEX: 33 years / Female INDICATIONS: . Trauma. CLINICAL DATA: This is the patient's initial encounter. Patient reports that signs and symptoms have been present for 1 day and indicates a pain score of 0/10. MEDICAL/SURGICAL HISTORY: Hypertension. Tonsillectomy. Esophageal dilitation. ORIF left patella , right femur. [place]PAR[place] [facility] [place]05/2018. . TECHNIQUE: Multiplanar, multisequence examination of the brain was performed without contrast. FINDINGS: Cerebrum: The ventricles are normal for age. No evidence of midline shift, mass lesion, or acute in farction. There is bilateral subarachnoid hemorrhage. No extraaxial fluid collections are seen. Minim al intraventricular hemorrhage also seen. The pituitary gland and suprasellar cistern are normal in c onfiguration. White Matter: No significant signal abnormalities are seen in the white matter. Posterior Fossa: The cerebellum and brainstem are intact. The 4th ventricle is midline. The cerebel lopontine angle is unremarkable. The cerebellar tonsils are normal in position. Diffusion Imaging: No focal areas of restricted diffusion are seen. No evidence of acute infarction . Extracranial: The visualized portions of the orbits and paranasal sinuses are unremarkable. CONCLUSION: 1. Bilateral subarachnoid hemorrhage and minimal intraventricular hemorrhage. 2. No midline shift or mass effect. Electronically signed by: Levar Nation MD Board Certified Radiologist 08/10/2018 5:38 PM EST
[2018-08-11] MEDS: Oral Hygiene Kit OROPHARYNG SCH ×3 (03:54→17:22)
[2018-08-11] MEDS: Propofol 1000 mg/100 ml Inj 1,000 MG/100 ML BOTTLE IV.CONT PRN (03:54)
--- NOTE | 2018-08-11 04:22 | XR ---
EXAM DATE: 08/11/2018 3:57 AM EST AGE/SEX: 33 years / Female INDICATIONS: Respiratory disease. CLINICAL DATA: This is the patient's subsequent encounter. Patient reports that signs and symptoms h ave been present for 1 week and indicates a pain score of Nonresponsive. MEDICAL/SURGICAL HISTORY: . Smoker. T1, T2 fracture. Pleural effusion. Left patella fracture. Right Distal femur fracture. Head injury. Hypovolemic hemorrhagic shock. Left scapula fracture. Liver laceration. Contusion, pancreas. Non-responsive. COMPARISON: [facility], CHEST 1V SINGLE AP, 08/10/2018. . FINDINGS: Endotracheal tube tip is present 7-8 cm above the edward. Nasogastric tube remains in the mid esophag us left subclavian central catheter is stable. Right lateral chest pigtail thoracostomy tube remains in place. Left apical chest tube remains in place. There has been interval increase in left apical pn eumothorax with about 16 mm separation of apical pleural layers. Bibasilar infiltrates and effusions persist not significant changed. Cardiac contours are grossly stable. CONCLUSION: Increasing left apical pneumothorax Electronically signed by: Naun Yepez MD Board Certified Radiologist 08/11/2018 4:20 AM EST
[2018-08-11 05:19] LABS: ABG Base Excess 8.1 mmol/L (-2-2); ABG PCO2 41 mmHg (38-42); ABG PO2 85 mmHg (61-120)
[2018-08-11 05:26] LABS: Baso % (Auto) 0.1 % (0.0-2.0); Eos # (Auto) 0.2 th/mm3 (0.0-0.4); Eos % (Auto) 1.4 % (0.0-4.0); Hematocrit 25.2 % (35.0-46.0); Hemoglobin 8.5 gm/dL (11.6-15.3); Lymph # (Auto) 1.3 th/mm3 (1.0-4.8); Lymph % (Auto) 9.2 % (9.0-44.0); Mean Corpuscular HGB Conc 33.8 % (32.0-36.0); Mean Corpuscular Hemoglobin 31.7 pg (27.0-34.0); Mean Platelet Volume 10.3 fL (7.0-11.0); Mono # (Auto) 1.2 th/mm3 (0.0-0.9); Mono % (Auto) 8.4 % (0.0-8.0); Neut # (Auto) 11.2 th/mm3 (1.8-7.7); Neut % (Auto) 80.9 % (16.0-70.0); Platelet Count 144 th/mm3 (150-450); Red Blood Count 2.68 mil/mm3 (4.00-5.30); Red Cell Distribution Width 18.7 % (11.6-17.2); White Blood Count 13.8 th/mm3 (4.0-11.0)
[2018-08-11 05:36] LABS: Albumin 1.7 g/dL (3.4-5.0); Anion Gap 8 meq/L (5-15); Aspartate Aminotransferase 37 U/L (15-37); Blood Urea Nitrogen 7 mg/dL (7-18); Calcium 8.4 mg/dL (8.5-10.1); Carbon Dioxide 31.4 meq/L (21.0-32.0); Chloride 102 meq/L (98-107); Glomerular Filtration Rate Greater Than 89 mL/min (>89); Glucose,Random 107 mg/dL (74-106); Sodium 141 meq/L (136-145)
[2018-08-11 05:38] LABS: Alanine Aminotransferase 44 U/L (10-53)
[2018-08-11 05:40] LABS: Alkaline Phosphatase 125 U/L (45-117); Total Protein 5.5 g/dL (6.4-8.2)
[2018-08-11 08:03] LABS: Eosinophils 1 % (0-4); Lymphocytes 9 % (9-44); Monocytes 8 % (0-8); Myelocytes 1 % (0-0)
[2018-08-11 08:04] LABS: Ovalocytes 1+; Platelet Estimate Normal (Normal); Platelet Morphology Normal (Normal)
[2018-08-11] MEDS ORDERED: Bisacodyl 10 MG Supp RECTAL PRN (09:00)
[2018-08-11] MEDS: Enoxaparin Inj 30 MG/0.3 ML Syringe SQ SCH ×2 (09:23→21:29)
[2018-08-11] MEDS: Senna/Docusate Sodium 8.6/50 MG Tablet PO SCH ×2 (09:23→20:41)
[2018-08-11] MEDS: Famotidine 20 MG Tablet PO SCH ×2 (09:23→21:28)
[2018-08-11] MEDS: levETIRAcetam 500 MG Tablet PO SCH ×2 (09:23→21:26)
[2018-08-11] MEDS: Calcium/Vitamin D 250/125 MG Tablet PO SCH ×3 (09:24→18:35)
[2018-08-11] MEDS: Chlorhexidine 0.12% Oral Kit 15 ML UDC OROPHARYNG SCH ×2 (09:25→20:40)
[2018-08-11] MEDS: Sodium Chloride 0.9% 2 ML Flush BID IV.FLUSH SCH ×2 (09:25→20:41)
[2018-08-11] MEDS: [UNRECOGNIZED DRUG - OTHER] LEFT EYE SCH ×2 (09:25→21:28)
[2018-08-11] MEDS: [UNRECOGNIZED DRUG - OTHER] LEFT EYE SCH ×4 (09:26→21:29)
[2018-08-11] MEDS: MINERAL OIL LEFT EYE SCH ×4 (09:26→21:29)
[2018-08-11] MEDS: Midazolam 100 MG/100 ML Inj 100 MG/100 ML BAG IV.CONT PRN ×2 (10:37→22:37)
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
[2018-08-11] MEDS: QUEtiapine 25 MG Tablet PO SCH ×2 (11:21→21:30)
[2018-08-11] MEDS: Lidocaine 5% Patch T-DERMAL SCH (11:22)
[2018-08-11] MEDS: fentaNYL 10 mcg/mL Premix Drip 2,500 MCG/250 ML BAG IV.SIG PRN (11:52)
[2018-08-11] MEDS: Methocarbamol 500 MG Tablet PO SCH ×2 (15:19→21:27)
[2018-08-11] MEDS: Potassium Chlor 40 mEq Premix 40 MEQ/100 ML PIGGYBACK IV.SIG PRN (18:44)
[2018-08-12] MEDS: Oral Hygiene Kit OROPHARYNG SCH ×4 (00:19→16:06)
[2018-08-12] MEDS: Haloperidol Inj 5 MG/ML Ampul IV.PUSH PRN ×2 (00:20→13:57)
[2018-08-12] MEDS: fentaNYL 10 mcg/mL Premix Drip 2,500 MCG/250 ML BAG IV.SIG PRN ×2 (04:41→22:03)
[2018-08-12 04:44] LABS: Baso % (Auto) 0.1 % (0.0-2.0); Eos # (Auto) 0.1 th/mm3 (0.0-0.4); Eos % (Auto) 0.8 % (0.0-4.0); Hematocrit 27.3 % (35.0-46.0); Hemoglobin 9.1 gm/dL (11.6-15.3); Lymph # (Auto) 1.4 th/mm3 (1.0-4.8); Lymph % (Auto) 7.7 % (9.0-44.0); Mean Corpuscular HGB Conc 33.4 % (32.0-36.0); Mean Corpuscular Volume 92.6 fL (80.0-100.0); Mean Platelet Volume 9.9 fL (7.0-11.0); Mono # (Auto) 1.9 th/mm3 (0.0-0.9); Mono % (Auto) 10.2 % (0.0-8.0); Neut # (Auto) 14.7 th/mm3 (1.8-7.7); Neut % (Auto) 81.2 % (16.0-70.0); Platelet Count 230 th/mm3 (150-450); Red Blood Count 2.95 mil/mm3 (4.00-5.30); Red Cell Distribution Width 17.9 % (11.6-17.2); White Blood Count 18.1 th/mm3 (4.0-11.0)
--- NOTE | 2018-08-12 05:07 | XR ---
EXAM DATE: 08/12/2018 4:15 AM EST AGE/SEX: 33 years / Female INDICATIONS: Respiratory distress. CLINICAL DATA: This is the patient's subsequent encounter. Patient reports that signs and symptoms h ave been present for 1 week and indicates a pain score of Nonresponsive. MEDICAL/SURGICAL HISTORY: . Smoker. Thoracic spine fracture. Chest tube, left. Central line. COMPARISON: [facility], CHEST 1V SINGLE AP, 08/11/2018. . FINDINGS: A single AP view of the chest demonstrates the lungs to be symmetrically aerated with persistent biba silar airspace disease, essentially unchanged. [place] loop catheter projecting over the lateral right m id chest has been removed. Left-sided thoracostomy tube is unchanged in position. Left-sided pneumoth orax is slightly smaller when compared to the prior exam. Endotracheal tube remains appropriately pos itioned above the edward. Stable position of the left subclavian central venous catheter which projec ts over the central venous system. Nasogastric tube is been advanced into the gastric lumen where it extends off the inferior aspect of the image. Osseous structures are intact CONCLUSION: 1. Stable position of the left-sided thoracostomy tube, endotracheal tube and left subclavian centra l venous catheter. Interval removal of the right mid chest cope loop thoracostomy tube. Nasogastric t ube is been advanced into the stomach. 2. Persistent left sided pneumothorax is slightly smaller when compared to the prior. 3. Stable bibasilar airspace disease. Electronically signed by: Beny Gandhi MD Board Certified Radiologist 08/12/2018 5:05 AM EST
[2018-08-12 05:12] LABS: Alanine Aminotransferase 42 U/L (10-53); Albumin 1.9 g/dL (3.4-5.0); Anion Gap 5 meq/L (5-15); Aspartate Aminotransferase 33 U/L (15-37); Blood Urea Nitrogen 11 mg/dL (7-18); Calcium 8.3 mg/dL (8.5-10.1); Carbon Dioxide 32.1 meq/L (21.0-32.0); Chloride 105 meq/L (98-107); Glomerular Filtration Rate Greater Than 89 mL/min (>89); Glucose,Random 112 mg/dL (74-106); Potassium 3.6 meq/L (3.5-5.1); Sodium 142 meq/L (136-145)
[2018-08-12 05:14] LABS: Alkaline Phosphatase 136 U/L (45-117); Total Protein 6.1 g/dL (6.4-8.2)
[2018-08-12] MEDS: Methocarbamol 500 MG Tablet PO SCH ×3 (05:38→21:56)
[2018-08-12 05:41] LABS: ABG Base Excess 6.7 mmol/L (-2-2); ABG PCO2 37 mmHg (38-42); ABG PO2 66 mmHg (61-120)
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
[2018-08-12] MEDS: Chlorhexidine 0.12% Oral Kit 15 ML UDC OROPHARYNG SCH ×2 (08:33→21:55)
[2018-08-12] MEDS: Lidocaine 5% Patch T-DERMAL SCH (08:33)
[2018-08-12] MEDS: MINERAL OIL LEFT EYE SCH ×4 (08:37→21:57)
[2018-08-12] MEDS: QUEtiapine 25 MG Tablet PO SCH ×2 (08:37→21:56)
[2018-08-12] MEDS: Enoxaparin Inj 30 MG/0.3 ML Syringe SQ SCH (08:37)
[2018-08-12] MEDS: [UNRECOGNIZED DRUG - OTHER] LEFT EYE SCH ×4 (08:37→21:57)
[2018-08-12] MEDS: levETIRAcetam 500 MG Tablet PO SCH ×2 (08:37→21:55)
[2018-08-12] MEDS: Famotidine 20 MG Tablet PO SCH ×2 (08:38→21:57)
[2018-08-12] MEDS: Calcium/Vitamin D 250/125 MG Tablet PO SCH ×3 (08:38→18:10)
[2018-08-12] MEDS: Sodium Chloride 0.9% 2 ML Flush BID IV.FLUSH SCH ×2 (08:38→21:55)
[2018-08-12] MEDS: Senna/Docusate Sodium 8.6/50 MG Tablet PO SCH ×2 (08:38→21:56)
[2018-08-12] MEDS: [UNRECOGNIZED DRUG - OTHER] LEFT EYE SCH ×2 (08:39→21:56)
--- NOTE | 2018-08-12 11:52 | P.PNOP ---
Subjective Interval history: Intubated. Patient is stable. There is discussion of progressing to a tracheostomy today Physical Exam Vital signs: Vital Signs 08/11/18 12:00 08/11/18 12:19 08/11/18 12:25 Temperature Pulse Rate 98 H 94 H 96 H Respiratory Rate 18 18 18 Blood Pressure 105/59 L 107/62 Pulse Oximetry 97 97 97 08/11/18 12:47 08/11/18 12:49 08/11/18 13:00 Temperature Pulse Rate 107 H 97 H Respiratory Rate 18 39 H 18 Blood Pressure 112/65 Pulse Oximetry 98 98 08/11/18 13:19 08/11/18 14:00 08/11/18 14:21 Temperature 100.8 F H Pulse Rate 111 H 123 H 145 H Respiratory Rate 38 H 51 H 46 H Blood Pressure 119/68 136/86 Pulse Oximetry 97 94 L 93 L 08/11/18 15:00 08/11/18 15:15 08/11/18 15:19 Temperature 102.8 F H Pulse Rate 149 H 141 H 140 H Respiratory Rate 63 H 41 H 47 H Blood Pressure 134/97 H 131/97 H Pulse Oximetry 95 96 95 08/11/18 16:00 08/11/18 16:19 08/11/18 17:00 Temperature 101.4 F H 99.6 F Pulse Rate 118 H 112 H 110 H Respiratory Rate 18 0 L 18 Blood Pressure 109/54 L Pulse Oximetry 94 L 95 95 08/11/18 17:12 08/11/18 17:19 08/11/18 18:00 Temperature 100.0 F H Pulse Rate 110 H 111 H Respiratory Rate 18 19 18 Blood Pressure 111/59 L Pulse Oximetry 94 L 93 L 94 L 08/11/18 18:19 08/11/18 19:00 08/11/18 19:49 Temperature Pulse Rate 119 H 114 H Respiratory Rate 18 18 21 Blood Pressure 115/72 118/65 Pulse Oximetry 94 L 93 L 93 L 08/11/18 20:00 08/11/18 21:00 08/11/18 22:00 Temperature 99.1 F Pulse Rate 115 H 117 H 113 H Respiratory Rate 18 18 18 Blood Pressure 119/69 126/66 102/56 L Pulse Oximetry 93 L 94 L 95 08/11/18 23:00 08/12/18 00:00 08/12/18 00:23 Temperature 102.6 F H Pulse Rate 110 H 123 H Respiratory Rate 20 48 H 20 Blood Pressure 131/70 106/60 Pulse Oximetry 94 L 96 96 08/12/18 01:00 08/12/18 02:00 08/12/18 03:00 Temperature 102.1 F H Pulse Rate 126 H 123 H 116 H Respiratory Rate 19 18 19 Blood Pressure 106/60 97/51 L 107/57 L Pulse Oximetry 97 96 94 L 08/12/18 04:00 08/12/18 04:22 08/12/18 04:26 Temperature 99.9 F H Pulse Rate 112 H 110 H Respiratory Rate 18 18 18 Blood Pressure 108/58 L Pulse Oximetry 93 L 92 L 08/12/18 05:00 08/12/18 06:00 08/12/18 07:19 Temperature Pulse Rate 118 H 124 H 112 H Respiratory Rate 19 18 18 Blood Pressure 108/58 L 130/63 105/62 Pulse Oximetry 91 L 92 L 92 L 08/12/18 07:47 08/12/18 08:00 08/12/18 08:19 Temperature 98.7 F Pulse Rate 113 H 110 H Respiratory Rate 18 18 18 Blood Pressure 107/61 Pulse Oximetry 92 L 92 L 92 L 08/12/18 09:19 08/12/18 10:19 08/12/18 11:47 Temperature Pulse Rate 110 H 120 H Respiratory Rate 18 18 19 Blood Pressure 98/54 L 106/71 Pulse Oximetry 91 L 92 L 100 Intake & Output 08/11/18 08/12/18 08/12/18 18:59 06:59 18:59 Intake Total 650 / 650 550 / 550 388 / 388 Output Total 1650 / 1650 Balance 650 / 650 -1100 / -1100 388 / 388 Weight 73.8 kg Intake: IV 250 / 250 450 / 450 Versed Inj 100 mg In 100 ml @ 2 100 / 100 MG/HR 2 mls/hr IV.CONT TITRATE PRN Rx#:[id number] KCl 40 mEq Premix Inj 40 meq In 100 / 100 100 ml @ 25 mls/hr IV.SIG Q2H PRN Rx#:[id number] fentaNYL 10 mcg/mL Premix Drip 250 / 250 250 / 250 2,500 mcg In 250 ml @ 50 MCG/HR 5 mls/hr IV.SIG TITRATE PRN Rx #:[id number] Tube Feeding 288 / 288 Water Bolus Amount 100 / 100 Free Water Amount 400 / 400 100 / 100 Output: Urine Amount (Catheter) 16490 Indwelling Urethral Catheter 1649 Other: Date of Last Bowel Movement 08/10/18 08/10/18 Narrative: RLE: dressings clean and dry. intact. NVI. +CKS. +short leg splint LLE: dressings clean and dry. intact. +CKS - Urinary Catheter Management Indwelling Urethral Catheter Cath placed during this visit: yes Reason for continuing: Hourly intake/output Insertion date: 08/05/18 Insertion time: 00:00 Results - Labs CBC & Chem 7: 08/12/18 04:30 08/12/18 04:30 Laboratory Results - last 24 hr 08/12/18 08/12/18 08/12/18 04:30 04:30 05:27 WBC 18.1 H RBC 2.95 L Hgb 9.1 L Hct 27.3 L MCV 92.6 MCH 31.0 MCHC 33.4 RDW 17.9 H Plt Count 230 D MPV 9.9 Neut % (Auto) 81.2 H Lymph % (Auto) 7.7 L Sand[place] % (Auto) 10.2 H Eos % (Auto) 0.8 Baso % (Auto) 0.1 Neut # (Auto) 14.7 H Lymph # (Auto) 1.4 [place] # (Auto) 1.9 H Eos # (Auto) 0.1 Baso # (Auto) 0.0 WBC Differential . Differential Comment Auto diff final Puncture Site Left radial Patient Temperature 98.6 O2 Saturation 92 ABG pH 7.52 H* ABG pCO2 37 L ABG pO2 66 ABG HCO3 30 H ABG O2 Content 11.6 L ABG Base Excess 6.7 H ABG Methemoglobin 1.2 Bereket Test Present Hemoglobin 8.9 L Carboxyhemoglobin 2.2 O2 Delivery Device Ventilator Vent Setting Prvc/ac Inspired O2 40 Critical Value Yes Sodium 142 Potassium 3.6 Chloride 105 Carbon Dioxide 32.1 H Anion Gap 5 BUN 11 Creatinine 0.51 Estimated GFR Greater than 89 Random Glucose 112 H Calcium 8.3 L Total Bilirubin 1.0 AST 33 ALT 42 Alkaline Phosphatase 136 H Total Protein 6.1 L D Albumin 1.9 L - Imaging Impressions Chest X-Ray 08/12/18 06:00 CONCLUSION: 1. Stable position of the left-sided thoracostomy tube, endotracheal tube and left subclavian central venous catheter. Interval removal of the right mid chest cope loop thoracostomy tube. Nasogastric tube is been advanced into the stomach. 2. Persistent left sided pneumothorax is slightly smaller when compared to the prior. 3. Stable bibasilar airspace disease. Assessment and Plan - Assessment and Plan 1) Right Calcaneus Fracture 2) Right distal Femur Fracture s/p ORIF - POD 4 3) Left Patella Fracture s/p ORIF - POD 7 -N.p.o. after midnight -plan for surgery tomorrow for ORIF of right calcaneus -maintain splint and NWB RLE -daily dressing changes of left patella and right knee -Hold Lovenox -Sign consents on chart
--- NOTE | 2018-08-12 12:58 | MG ---
cc: Joe Swan MD, PhD TEST NUMBER: [id number]. TECHNIQUE: A 17-channel EEG. DESCRIPTION: The background rhythm shows symmetrical delta activity, frequency of 2-3 Hz, amplitude is 30-40 microvolts. There is some muscle artifact present. There were no lateralizing features seen and no epileptiform discharges present. Photic stimulation does not elicit any type of a normal driving response. INTERPRETATION: Abnormal study consistent with severe encephalopathy. Joe Swan MD, PhD MAYELA/michelle , 12:39 PM , 12:44 PM
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
[2018-08-12] MEDS: Midazolam 100 MG/100 ML Inj 100 MG/100 ML BAG IV.CONT PRN (14:38)
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
--- NOTE | 2018-08-12 16:33 | ECG ---
Date Performed: 08/11/2018 Time Performed: 14:47:08 PTAGE: 33 years EKG: Sinus tachycardia. Possible left atrial abnormality Rightward axis Lateral infarct - age un determined Poor R wave progression - cannot rule out anteroseptal infarct Possible right ventricular hypertrophy Incomplete RBBB pattern now noted. With Q-waves V1, V2, V3, with possible anterior injury . Clinical correlation recommended. Abnormal ECG PREVIOUS TRACING : 08/07/2018 21.21 DOCTOR: Bob Logan Interpretating Date/Time 08/12/2018 16:32:19
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
--- NOTE | 2018-08-13 03:56 | XR ---
EXAM DATE: 08/13/2018 3:43 AM EST AGE/SEX: 33 years / Female INDICATIONS: Short of breath. CLINICAL DATA: This is the patient's subsequent encounter. Patient reports that signs and symptoms h ave been present for 1 week and indicates a pain score of 0/10. MEDICAL/SURGICAL HISTORY: . Smoker . Thoracic spine fracture. Chest tube, left. COMPARISON: [facility] [place] 1[place] SINGLE AP, 08/12/2018. . FINDINGS: A single AP view of the chest demonstrates the lungs to be symmetrically aerated with stable bibasila r airspace disease. Left-sided thoracostomy tube is unchanged in position with a persistent left apic al and lateral pneumothorax. Left IJ central venous catheters been removed. Nasogastric and endotrach eal tubes are stable in position. CONCLUSION: 1. Interval removal of a left subclavian central venous catheter. 2. Left-sided thoracostomy tube is unchanged in position. Persistent left-sided pneumothorax. 3. Stable bibasilar airspace disease. Electronically signed by: Bney Gandhi MD Board Certified Radiologist 08/13/2018 3:54 AM EST
[2018-08-13] MEDS: Midazolam 100 MG/100 ML Inj 100 MG/100 ML BAG IV.CONT PRN ×2 (04:00→19:56)
[2018-08-13] MEDS: Oral Hygiene Kit OROPHARYNG SCH ×4 (04:30→17:19)
[2018-08-13 05:15] LABS: ABG PCO2 40 mmHg (38-42); ABG PO2 82 mmHg (61-120)
[2018-08-13] MEDS: Methocarbamol 500 MG Tablet PO SCH ×3 (06:05→22:00)
[2018-08-13 06:22] LABS: Baso % (Auto) 0.3 % (0.0-2.0); Eos # (Auto) 0.3 th/mm3 (0.0-0.4); Eos % (Auto) 1.6 % (0.0-4.0); Hematocrit 25.9 % (35.0-46.0); Hemoglobin 8.7 gm/dL (11.6-15.3); Lymph # (Auto) 1.2 th/mm3 (1.0-4.8); Lymph % (Auto) 7.7 % (9.0-44.0); Mean Corpuscular HGB Conc 33.7 % (32.0-36.0); Mean Corpuscular Hemoglobin 31.5 pg (27.0-34.0); Mean Corpuscular Volume 93.5 fL (80.0-100.0); Mean Platelet Volume 9.9 fL (7.0-11.0); Mono # (Auto) 1.7 th/mm3 (0.0-0.9); Mono % (Auto) 11.1 % (0.0-8.0); Neut # (Auto) 12.5 th/mm3 (1.8-7.7); Neut % (Auto) 79.3 % (16.0-70.0); Platelet Count 301 th/mm3 (150-450); Red Blood Count 2.77 mil/mm3 (4.00-5.30); Red Cell Distribution Width 17.8 % (11.6-17.2); White Blood Count 15.8 th/mm3 (4.0-11.0)
[2018-08-13 06:43] LABS: Albumin 1.8 g/dL (3.4-5.0); Anion Gap 8 meq/L (5-15); Aspartate Aminotransferase 30 U/L (15-37); Blood Urea Nitrogen 20 mg/dL (7-18); Carbon Dioxide 30.4 meq/L (21.0-32.0); Chloride 102 meq/L (98-107); Glomerular Filtration Rate Greater Than 89 mL/min (>89); Glucose,Random 111 mg/dL (74-106); Potassium 3.6 meq/L (3.5-5.1); Sodium 140 meq/L (136-145)
[2018-08-13 06:46] LABS: Alanine Aminotransferase 33 U/L (10-53); Alkaline Phosphatase 135 U/L (45-117); Total Protein 6.2 g/dL (6.4-8.2)
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
[2018-08-13] MEDS: Chlorhexidine 0.12% Oral Kit 15 ML UDC OROPHARYNG SCH ×2 (09:17→21:50)
[2018-08-13] MEDS: Sodium Chloride 0.9% 2 ML Flush BID IV.FLUSH SCH ×2 (09:17→22:58)
[2018-08-13] MEDS: Lidocaine 5% Patch T-DERMAL SCH (09:17)
[2018-08-13] MEDS: Senna/Docusate Sodium 8.6/50 MG Tablet PO SCH ×2 (09:18→21:00)
[2018-08-13] MEDS: levETIRAcetam 500 MG Tablet PO SCH (09:18)
[2018-08-13] MEDS: Famotidine 20 MG Tablet PO SCH ×2 (09:18→21:00)
[2018-08-13] MEDS: Calcium/Vitamin D 250/125 MG Tablet PO SCH ×3 (09:18→17:20)
[2018-08-13] MEDS: QUEtiapine 25 MG Tablet PO SCH ×2 (09:18→22:57)
[2018-08-13] MEDS: [UNRECOGNIZED DRUG - OTHER] LEFT EYE SCH ×4 (09:19→21:50)
[2018-08-13] MEDS: [UNRECOGNIZED DRUG - OTHER] LEFT EYE SCH ×2 (09:19→21:50)
[2018-08-13] MEDS: MINERAL OIL LEFT EYE SCH ×4 (09:19→21:50)
--- NOTE | 2018-08-13 10:07 | P.PNOP ---
Subjective Interval history: Remains intubated. Plan is to have tracheostomy today. She is unstable and not cleared for surgery Physical Exam Vital signs: Vital Signs 08/12/18 10:19 08/12/18 11:00 08/12/18 11:19 Temperature Pulse Rate 120 H 125 H 126 H Respiratory Rate 18 20 18 Blood Pressure 106/71 115/64 Pulse Oximetry 92 L 100 100 08/12/18 11:47 08/12/18 12:00 08/12/18 12:19 Temperature 99.5 F Pulse Rate 122 H 126 H Respiratory Rate 19 23 23 Blood Pressure 122/66 Pulse Oximetry 100 100 93 L 08/12/18 12:49 08/12/18 13:00 08/12/18 13:19 Temperature Pulse Rate 122 H 128 H 129 H Respiratory Rate 25 H 23 46 H Blood Pressure 122/66 175/76 H Pulse Oximetry 96 97 08/12/18 14:00 08/12/18 14:19 08/12/18 15:00 Temperature Pulse Rate 134 H 135 H 117 H Respiratory Rate 30 H 24 18 Blood Pressure 125/68 125/68 Pulse Oximetry 94 L 95 94 L 08/12/18 15:06 08/12/18 15:19 08/12/18 16:19 Temperature 103 F H Pulse Rate 117 H 117 H Respiratory Rate 18 48 H 19 Blood Pressure 109/62 112/63 Pulse Oximetry 95 95 95 08/12/18 17:00 08/12/18 17:19 08/12/18 18:00 Temperature 98.3 F Pulse Rate 109 H 106 H 99 H Respiratory Rate 18 19 18 Blood Pressure 112/58 L Pulse Oximetry 97 95 96 08/12/18 19:00 08/12/18 19:19 08/12/18 19:25 Temperature Pulse Rate 95 H 94 H Respiratory Rate 18 18 18 Blood Pressure 103/56 L Pulse Oximetry 94 L 94 L 95 08/12/18 20:00 08/12/18 20:19 08/12/18 21:00 Temperature Pulse Rate 95 H 97 H 97 H Respiratory Rate 18 18 18 Blood Pressure 105/61 Pulse Oximetry 94 L 94 L 94 L 08/12/18 21:19 08/12/18 22:00 08/12/18 22:19 Temperature 99.0 F 99.0 F Pulse Rate 97 H 105 H 109 H Respiratory Rate 18 18 18 Blood Pressure 113/56 L 112/60 Pulse Oximetry 93 L 93 L 93 L 08/12/18 23:00 08/12/18 23:19 08/12/18 23:34 Temperature Pulse Rate 111 H 113 H Respiratory Rate 18 36 H 19 Blood Pressure 111/63 Pulse Oximetry 94 L 94 L 96 08/13/18 00:00 08/13/18 00:12 08/13/18 00:19 Temperature 102.9 F H Pulse Rate 117 H 112 H Respiratory Rate 53 H 22 57 H Blood Pressure 118/59 L Pulse Oximetry 96 92 L 08/13/18 01:00 08/13/18 01:19 08/13/18 02:00 Temperature 99.8 F H Pulse Rate 110 H 105 H 101 H Respiratory Rate 35 H 37 H 33 H Blood Pressure 105/56 L Pulse Oximetry 96 96 96 08/13/18 02:19 08/13/18 03:00 08/13/18 03:06 Temperature Pulse Rate 101 H 102 H Respiratory Rate 18 18 18 Blood Pressure 112/59 L Pulse Oximetry 96 95 94 L 08/13/18 03:19 08/13/18 04:00 08/13/18 04:19 Temperature Pulse Rate 101 H 103 H 103 H Respiratory Rate 18 18 18 Blood Pressure 103/56 L 110/62 Pulse Oximetry 95 95 95 08/13/18 05:00 08/13/18 05:19 08/13/18 06:00 Temperature 100.0 F H Pulse Rate 105 H 105 H 105 H Respiratory Rate 18 18 18 Blood Pressure 108/64 Pulse Oximetry 94 L 97 95 08/13/18 07:38 Temperature Pulse Rate Respiratory Rate 18 Blood Pressure Pulse Oximetry 95 Intake & Output 08/12/18 08/13/18 08/13/18 18:59 06:59 18:59 Intake Total 1153 / 1153 650 / 650 50 / 50 Output Total 1050 / 1050 1200 / 1200 Balance 103 / 103 -550 / -550 50 / 50 Weight 70.9 kg Intake: IV 200 / 200 450 / 450 Versed Inj 100 mg In 100 ml @ 2 100 / 100 100 / 100 MG/HR 2 mls/hr IV.CONT TITRATE PRN Rx#:[id number] Maxipime Inj 2,000 MG In NS Inj 100 / 100 100 / 100 100 ML @ 200 mls/hr IV.SIG Q8H MAEVE Rx#:[id number] fentaNYL 10 mcg/mL Premix Drip 250 / 250 2,500 mcg In 250 ml @ 50 MCG/HR 5 mls/hr IV.SIG TITRATE PRN Rx #:[id number] Tube Feeding 403 / 403 Water Bolus Amount 350 / 350 Free Water Amount 200 / 200 200 / 200 50 / 50 Output: Urine Amount (Catheter) 1050 / 1050 1150 / 1150 Indwelling Urethral Catheter 1050 / 1050 1150 / 1150 Chest Tube Drainage 0 / 0 50 / 50 Left Upper 0 / 0 50 / 50 Other: Date of Last Bowel Movement 08/10/18 # Bowel Movements 0 Narrative: Right lower extremity: Clean dry dressings intact. Knee immobilizer in place. Splint intact. Good capillary refills Left lower extremity: Clean dry dressings intact. Knee immobilizer in place good capillary refills and distal pulses - Urinary Catheter Management Indwelling Urethral Catheter Cath placed during this visit: yes Reason for continuing: Hourly intake/output Insertion date: 08/05/18 Insertion time: 00:00 Results - Labs CBC & Chem 7: 08/13/18 05:13 08/13/18 05:13 Laboratory Results - last 24 hr 08/13/18 08/13/18 08/13/18 05:00 05:13 05:13 WBC 15.8 H RBC 2.77 L Hgb 8.7 L Hct 25.9 L MCV 93.5 MCH 31.5 MCHC 33.7 RDW 17.8 H Plt Count 301 D MPV 9.9 Neut % (Auto) 79.3 H Lymph % (Auto) 7.7 L [place] % (Auto) 11.1 H Eos % (Auto) 1.6 Baso % (Auto) 0.3 Neut # (Auto) 12.5 H Lymph # (Auto) 1.2 [place] # (Auto) 1.7 H Eos # (Auto) 0.3 Baso # (Auto) 0.0 WBC Differential . Differential Comment Auto diff final Puncture Site Left radial Patient Temperature 98.6 O2 Saturation 95 ABG pH 7.50 H ABG pCO2 40 ABG pO2 82 ABG HCO3 31 H ABG O2 Content 12.3 ABG Base Excess 7.0 H ABG Methemoglobin 1.2 Bereket Test Present Hemoglobin 9.1 L Carboxyhemoglobin 1.4 O2 Delivery Device Ventilator Vent Setting 18/550/peep8/it0.9 Inspired O2 70 Critical Value No Sodium 140 Potassium 3.6 Chloride 102 Carbon Dioxide 30.4 Anion Gap 8 BUN 20 H Creatinine 0.54 Estimated GFR Greater than 89 Random Glucose 111 H Calcium 8.0 L Total Bilirubin 0.8 AST 30 ALT 33 Alkaline Phosphatase 135 H Total Protein 6.2 L Albumin 1.8 L Blood Type Antibody Screen Antibody Identification MTS Gel Crossmatch Bld Prod Order Comment 08/13/18 08/13/18 05:13 09:07 WBC RBC Hgb Hct MCV MCH MCHC RDW Plt Count MPV Neut % (Auto) Lymph % (Auto) [place] % (Auto) Eos % (Auto) Baso % (Auto) Neut # (Auto) Lymph # (Auto) [place] # (Auto) Eos # (Auto) Baso # (Auto) WBC Differential Differential Comment Puncture Site Patient Temperature O2 Saturation ABG pH ABG pCO2 ABG pO2 ABG HCO3 ABG O2 Content ABG Base Excess ABG Methemoglobin Bereket Test Hemoglobin Carboxyhemoglobin O2 Delivery Device Vent Setting Inspired O2 Critical Value Sodium Potassium Chloride Carbon Dioxide Anion Gap BUN Creatinine Estimated GFR Random Glucose Calcium Total Bilirubin AST ALT Alkaline Phosphatase Total Protein Albumin Blood Type B Positive Antibody Screen Positive H Antibody Identification Anti-V MTS Gel Crossmatch See Detail Bld Prod Order Comment Microbiology 08/12/18 13:45 Sputum - Endotracheal Gram Stain - Final - Imaging Impressions Chest X-Ray 08/13/18 06:00 CONCLUSION: 1. Interval removal of a left subclavian central venous catheter. 2. Left-sided thoracostomy tube is unchanged in position. Persistent left- sided pneumothorax. 3. Stable bibasilar airspace disease. Assessment and Plan - Assessment and Plan 1) Right Calcaneus Fracture 2) Right distal Femur Fracture s/p ORIF - POD 5 3) Left Patella Fracture s/p ORIF - POD 8 Daily dressing changes left knee and right upper leg Xeroform 4 x 4's and Fernando wrap Maintain knee immobilizers and splint Resume Lovenox per trauma service -Marcia is unstable for surgery today -We will plan for surgery later this week when she is stable. She will need to be positioned laterally for the procedure. -Continue trauma care
[2018-08-13] MEDS ORDERED: Midazolam Inj 5 MG/ML 1 ML Vial ONE (10:14)
--- NOTE | 2018-08-13 10:25 | P.PCN ---
Date of procedure: 08/13/18 Pre-op diagnosis: Resp failure, bronch for tracheostomy Post-op diagnosis: same Procedure: Procedure: bronchoscopy guided for percutaneous tracheostomy placement Patient was already intubated sedated and paralyzed with 50 mg IV rocuronium. A flexible Olympus bronchoscope was passed through the endotracheal tube visualizing the distal trachea, edward, and right and left main stem bronchus with the primary and secondary divisions. There was significant thick yellow secretions in bilateral lower lobes which was suctioned out. BAL was performed and sample collected from right lower lobe. Following this endotracheal tube was withdrawn to 20 cm shanae under direct visualization. Entry of the Angiocath followed by guidewire placement, serial dilation with Blue Rhino followed by tracheostomy placement without injuring the posterior tracheal wall was visualized directly on the video monitor screen. (See separate tracheostomy note by Dr. Zuñiga). After completion of percutaneous tracheostomy, bronchoscope was introduced into the new tracheostomy and main edward was visualized. No significant bleed or injury noted. Patient tolerated procedure well and no blood loss for the bronchoscopy Anesthesia: GINNA Surgeon: Philip Magallon Estimated blood loss (mL): 0 Pathology: other (BAL) Condition: critical Disposition: ICU
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
--- NOTE | 2018-08-13 15:34 | XR ---
EXAM DATE: 08/13/2018 3:29 PM EST AGE/SEX: 33 years / Female INDICATIONS: Post ET tube placement. CLINICAL DATA: This is the patient's subsequent encounter. Patient reports that signs and symptoms h ave been present for 1 week and indicates a pain score of Nonresponsive. MEDICAL/SURGICAL HISTORY: . respiratory failure, T-spine fracture, pneumothorax left Chest tu be, left. COMPARISON: [facility] – [place], CHEST 1V SINGLE AP, 08/13/2018. . FINDINGS: Patient has been converted to tracheostomy tube which appears normal in position. Tip approximately 4 .3 cm above the edward. Patchy parenchymal consolidation again seen of both bases, not significantly changed. A left chest tube remains in place, and there is a tiny apical pneumothorax unchanged. Cardiomediastinal silhouette stable and within normal limits. CONCLUSION: 1. New tracheostomy tube again appears appropriately positioned. 2. Left chest tube remains in place. There is a tiny left apical pneumothorax unchanged. 3. Patchy parenchymal consolidation of both bases unchanged. Electronically signed by: Naun Steel MD Board Certified Radiologist 08/13/2018 3:32 PM EST
[2018-08-13] MEDS ORDERED: ceFAZolin Inj 1 GM in Sodium Chlor 0.9% Inj 100 ML IV.SIG SCH (16:30)
[2018-08-13] MEDS: fentaNYL 10 mcg/mL Premix Drip 2,500 MCG/250 ML BAG IV.SIG PRN (17:23)
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
--- NOTE | 2018-08-13 20:25 | MP ---
cc: Erin Claudio MD DATE OF OPERATION: 08/13/2018 PREOPERATIVE DIAGNOSES: Respiratory failure, multisystem trauma. POSTOPERATIVE DIAGNOSES: Respiratory failure, multisystem trauma. OPERATIVE PROCEDURE: Blue Rhino tracheostomy and bronchoscopy. SURGEON: Erin Claudio MD SHIPPING SUPERVISOR AND BRONCHOSCOPIST: Philip Magallon MD ANESTHESIA: General with Versed and rocuronium as well as local 1% Xylocaine. ESTIMATED BLOOD LOSS: 2 mL. DESCRIPTION OF PROCEDURE: The patient was prepped and draped in the usual fashion. The area was infiltrated with 1% Xylocaine. A small incision was made just above the sternal notch and vertically deepened down to the trachea. Under bronchoscopy vision, the Angiocath was inserted into the second and third tracheal rings. Through the Angiocath, the guidewire was placed. Over the guidewire, the punch dilator was placed, followed by the Blue Rhino dilator. This was followed by the 8 Shiley tracheal cannula. This was sutured in place with 2-0 nylon. The patient was connected the ventilator and end tidal CO2 ascertained. The patient was bronchoscoped and a large amount of mucus debris was removed, especially from her right lower lobe. Lukens traps were obtained for cultures. The patient tolerated the procedure well. MD ZULEIMA Luna/beulah , 07:08 PM , 07:13 PM
[2018-08-14] MEDS: fentaNYL 10 mcg/mL Premix Drip 2,500 MCG/250 ML BAG IV.SIG PRN ×3 (03:40→23:31)
[2018-08-14] MEDS: Oral Hygiene Kit OROPHARYNG SCH ×4 (04:00→15:56)
--- NOTE | 2018-08-14 04:54 | XR ---
EXAM DATE: 08/14/2018 4:34 AM EST AGE/SEX: 33 years / Female INDICATIONS: Shortness of breath. CLINICAL DATA: This is the patient's subsequent encounter. Patient reports that signs and symptoms h ave been present for 1 week and indicates a pain score of Nonresponsive. MEDICAL/SURGICAL HISTORY: . Respiratory failure, T-spine fracture, Pneumothorax, left. . Chest tube, left. COMPARISON: [facility] [place], CHEST 1V SINGLE AP, 08/13/2018. . FINDINGS: A single AP view of the chest demonstrates stable bibasilar airspace disease. Left-sided thoracostomy tube is unchanged in position with a small apical pneumothorax. Tracheostomy is appropriately positi oned above the edward. Heart size is normal. Osseous structures are intact CONCLUSION: Stable appearance of the chest with bibasilar airspace disease and a small left apical pneumothorax. Electronically signed by: Beny Gandhi MD Board Certified Radiologist 08/14/2018 4:53 AM EST
[2018-08-14 05:25] LABS: ABG Base Excess 4.7 mmol/L (-2-2); ABG PCO2 39 mmHg (38-42); ABG PO2 76 mmHg (61-120)
[2018-08-14] MEDS: Methocarbamol 500 MG Tablet PO SCH ×3 (06:35→22:22)
[2018-08-14 07:10] LABS: Baso # (Auto) 0.1 th/mm3 (0.0-0.2); Baso % (Auto) 0.4 % (0.0-2.0); Eos # (Auto) 0.1 th/mm3 (0.0-0.4); Eos % (Auto) 0.8 % (0.0-4.0); Hematocrit 25.6 % (35.0-46.0); Hemoglobin 8.5 gm/dL (11.6-15.3); Lymph % (Auto) 6.2 % (9.0-44.0); Mean Corpuscular HGB Conc 33.2 % (32.0-36.0); Mean Corpuscular Hemoglobin 31.2 pg (27.0-34.0); Mean Platelet Volume 10.1 fL (7.0-11.0); Mono # (Auto) 1.7 th/mm3 (0.0-0.9); Mono % (Auto) 10.9 % (0.0-8.0); Neut # (Auto) 12.7 th/mm3 (1.8-7.7); Neut % (Auto) 81.7 % (16.0-70.0); Platelet Count 364 th/mm3 (150-450); Red Blood Count 2.72 mil/mm3 (4.00-5.30); Red Cell Distribution Width 17.5 % (11.6-17.2); White Blood Count 15.6 th/mm3 (4.0-11.0)
[2018-08-14 07:16] LABS: Albumin 1.9 g/dL (3.4-5.0); Anion Gap 9 meq/L (5-15); Aspartate Aminotransferase 33 U/L (15-37); Blood Urea Nitrogen 18 mg/dL (7-18); Calcium 8.2 mg/dL (8.5-10.1); Carbon Dioxide 28.6 meq/L (21.0-32.0); Chloride 102 meq/L (98-107); Glomerular Filtration Rate Greater Than 89 mL/min (>89); Glucose,Random 96 mg/dL (74-106); Potassium 3.4 meq/L (3.5-5.1); Sodium 140 meq/L (136-145)
[2018-08-14 07:17] LABS: Alanine Aminotransferase 35 U/L (10-53)
[2018-08-14 07:19] LABS: Alkaline Phosphatase 138 U/L (45-117); Total Protein 6.3 g/dL (6.4-8.2)
[2018-08-14 07:54] LABS: Monocytes 15 % (0-8); Myelocytes 3 % (0-0); Platelet Estimate Normal (Normal); Toxic Granulation 1+
[2018-08-14] MEDS: Lidocaine 5% Patch T-DERMAL SCH (08:35)
[2018-08-14] MEDS: Midazolam 100 MG/100 ML Inj 100 MG/100 ML BAG IV.CONT PRN ×2 (08:35→22:28)
[2018-08-14] MEDS: Chlorhexidine 0.12% Oral Kit 15 ML UDC OROPHARYNG SCH ×2 (08:38→22:55)
[2018-08-14] MEDS: [UNRECOGNIZED DRUG - OTHER] LEFT EYE SCH ×2 (08:38→22:56)
[2018-08-14] MEDS: [UNRECOGNIZED DRUG - OTHER] LEFT EYE SCH ×4 (08:38→22:56)
[2018-08-14] MEDS: MINERAL OIL LEFT EYE SCH ×4 (08:38→22:56)
[2018-08-14] MEDS: Calcium/Vitamin D 250/125 MG Tablet PO SCH ×3 (08:39→18:33)
[2018-08-14] MEDS: Famotidine 20 MG Tablet PO SCH ×2 (08:39→22:23)
[2018-08-14] MEDS: Sodium Chloride 0.9% 2 ML Flush BID IV.FLUSH SCH ×2 (08:39→22:57)
[2018-08-14] MEDS: Senna/Docusate Sodium 8.6/50 MG Tablet PO SCH ×2 (08:40→22:23)
[2018-08-14] MEDS: QUEtiapine 25 MG Tablet PO SCH ×3 (08:40→22:12)
--- NOTE | 2018-08-14 08:44 | XR ---
EXAM DATE: 08/14/2018 8:32 AM EST AGE/SEX: 33 years / Female INDICATIONS: Evaluate Right foot fractures CLINICAL DATA: This is the patient's subsequent encounter. Patient reports that signs and symptoms h ave been present for 2 weeks and indicates a pain score of Nonresponsive. MEDICAL/SURGICAL HISTORY: None. None. COMPARISON: [facility] [place], CT ANKLE RIGHT W/O CONTRAST, 08/08/2018. . FINDINGS: There are fractures of the head of the second and third metatarsals. These in reasonable alignment. T here is a severely comminuted fracture of the calcaneus with multiple fracture fragments evident and deformity. There is deformity of the talus with fractures all 3 facets. These could be better evaluated by a CT scan of the foot in fiberglass. CONCLUSION: Healing fractures as above. Electronically signed by: Tay Malone MD Board Certified Radiologist 08/14/2018 8:43 AM EST
[2018-08-14] MEDS: Potassium Chlor 20 mEq Premix 20 MEQ/100 ML PIGGYBACK IV.SIG PRN ×2 (09:01→12:28)
--- NOTE | 2018-08-14 10:10 | XR ---
EXAM DATE: 08/14/2018 10:06 AM EST AGE/SEX: 33 years / Female INDICATIONS: Left ankle pain, to rule out fracture. CLINICAL DATA: This is the patient's subsequent encounter. Patient reports that signs and symptoms h ave been present for 2 weeks and indicates a pain score of Nonresponsive. MEDICAL/SURGICAL HISTORY: Non-responsive. Non-responsive. COMPARISON: No prior exams available for comparison. FINDINGS: AP, lateral and oblique views of the ankle were obtained and demonstrate soft tissue swelling greates t over the lateral malleolus. There is no acute fracture or malalignment. The ankle mortise is intact in appearance. There is overlying artifact. The fifth metatarsal base appears intact as well. CONCLUSION: Soft tissue swelling with no acute fracture or malalignment. Electronically signed by: David Villa MD Board Certified Radiologist 08/14/2018 10:09 AM EST
--- NOTE | 2018-08-14 10:18 | P.PNOP ---
Subjective Interval history: Patient is stable but sedated Physical Exam Vital signs: Vital Signs 08/13/18 11:28 08/13/18 12:30 08/13/18 12:45 Temperature 100.8 F H Pulse Rate 98 H 99 H Respiratory Rate 20 18 18 Blood Pressure 115/56 L 116/55 L Pulse Oximetry 94 L 94 L 96 08/13/18 13:00 08/13/18 13:15 08/13/18 13:30 Temperature Pulse Rate 99 H 100 H 98 H Respiratory Rate 18 18 18 Blood Pressure 120/57 L 114/59 L 119/58 L Pulse Oximetry 96 95 95 08/13/18 13:45 08/13/18 14:00 08/13/18 14:15 Temperature Pulse Rate 107 H 111 H 105 H Respiratory Rate 26 H 22 19 Blood Pressure 141/83 H 137/76 118/58 L Pulse Oximetry 90 L 98 96 08/13/18 14:30 08/13/18 14:45 08/13/18 15:00 Temperature Pulse Rate 108 H 107 H 104 H Respiratory Rate 27 H 19 21 Blood Pressure 123/64 101/55 L 111/62 Pulse Oximetry 96 97 95 08/13/18 15:15 08/13/18 15:30 08/13/18 15:33 Temperature Pulse Rate 101 H 103 H Respiratory Rate 18 18 18 Blood Pressure 113/58 L 118/76 Pulse Oximetry 94 L 95 94 L 08/13/18 15:45 08/13/18 16:00 08/13/18 16:15 Temperature 100.1 F H Pulse Rate 104 H 108 H 109 H Respiratory Rate 18 20 19 Blood Pressure 124/61 123/56 L 124/57 L Pulse Oximetry 95 97 98 08/13/18 16:30 08/13/18 16:45 08/13/18 17:00 Temperature Pulse Rate 106 H 105 H 108 H Respiratory Rate 18 18 18 Blood Pressure 116/58 L 115/56 L 122/62 Pulse Oximetry 98 95 99 08/13/18 17:15 08/13/18 17:30 08/13/18 17:45 Temperature Pulse Rate 114 H 113 H 109 H Respiratory Rate 20 22 18 Blood Pressure 124/60 125/61 116/60 Pulse Oximetry 100 97 100 08/13/18 18:00 08/13/18 18:15 08/13/18 18:30 Temperature Pulse Rate 113 H 108 H 119 H Respiratory Rate 19 19 23 Blood Pressure 123/64 113/62 121/63 Pulse Oximetry 97 99 99 08/13/18 18:45 08/13/18 19:00 08/13/18 19:15 Temperature Pulse Rate 114 H 112 H 108 H Respiratory Rate 21 23 18 Blood Pressure 124/71 114/61 122/60 Pulse Oximetry 99 99 99 08/13/18 19:30 08/13/18 19:39 08/13/18 19:45 Temperature 100.0 F H Pulse Rate 108 H 100 H Respiratory Rate 20 19 18 Blood Pressure 115/58 L 110/56 L Pulse Oximetry 99 100 98 08/13/18 20:00 08/13/18 20:15 08/13/18 20:30 Temperature Pulse Rate 96 H 97 H 96 H Respiratory Rate 18 18 18 Blood Pressure 108/58 L 114/61 110/59 L Pulse Oximetry 97 95 95 08/13/18 20:45 08/13/18 21:00 08/13/18 21:15 Temperature 102.9 F H Pulse Rate 93 H 92 H 92 H Respiratory Rate 18 18 18 Blood Pressure 105/56 L 110/61 113/63 Pulse Oximetry 95 98 100 08/13/18 21:30 08/13/18 21:45 08/13/18 22:00 Temperature 98.9 F Pulse Rate 94 H 94 H 96 H Respiratory Rate 19 18 18 Blood Pressure 113/62 115/63 121/62 Pulse Oximetry 100 100 97 08/13/18 22:15 08/13/18 22:30 08/13/18 23:00 Temperature 98.1 F Pulse Rate 98 H 97 H 103 H Respiratory Rate 18 18 26 H Blood Pressure 120/63 115/59 L 122/66 Pulse Oximetry 100 99 96 08/13/18 23:10 08/13/18 23:30 08/14/18 00:00 Temperature Pulse Rate 102 H 103 H Respiratory Rate 18 18 20 Blood Pressure 116/58 L 118/58 L Pulse Oximetry 97 96 96 08/14/18 00:30 08/14/18 01:00 08/14/18 01:30 Temperature Pulse Rate 106 H 108 H 107 H Respiratory Rate 22 21 19 Blood Pressure 126/71 122/58 L 128/70 Pulse Oximetry 95 94 L 94 L 08/14/18 02:00 08/14/18 02:30 08/14/18 03:00 Temperature 98.1 F Pulse Rate 100 H 101 H 106 H Respiratory Rate 18 18 25 H Blood Pressure 118/56 L 120/61 129/66 Pulse Oximetry 95 96 100 08/14/18 03:16 08/14/18 03:30 08/14/18 04:00 Temperature Pulse Rate 101 H 100 H Respiratory Rate 20 21 33 H Blood Pressure 122/66 Pulse Oximetry 95 97 94 L 08/14/18 04:10 08/14/18 04:41 08/14/18 04:42 Temperature Pulse Rate 97 H 99 H Respiratory Rate 19 19 19 Blood Pressure 124/66 Pulse Oximetry 95 08/14/18 05:00 08/14/18 06:00 08/14/18 07:41 Temperature 98.8 F 99.0 F Pulse Rate 95 H 95 H Respiratory Rate 18 20 24 Blood Pressure Pulse Oximetry 98 98 93 L 08/14/18 10:07 Temperature Pulse Rate Respiratory Rate 27 H Blood Pressure Pulse Oximetry 91 L Intake & Output 08/13/18 08/14/18 08/14/18 18:59 06:59 18:59 Intake Total 650 / 650 450 / 450 100 / 100 Output Total 745 / 745 1020 / 1020 Balance -95 / -95 -570 / -570 100 / 100 Intake: IV 600 / 600 450 / 450 100 / 100 Versed Inj 100 mg In 100 ml @ 2 100 / 100 100 / 100 MG/HR 2 mls/hr IV.CONT TITRATE PRN Rx#:[id number] Maxipime Inj 2,000 MG In NS Inj 200 / 200 100 / 100 100 ML @ 200 mls/hr IV.SIG Q8H MAEVE Rx#:[id number] Levaquin 750 mg Premix Inj 150 150 / 150 ML @ 100 mls/hr IV.SIG Q24H MAEVE Rx#:[id number] fentaNYL 10 mcg/mL Premix Drip 250 / 250 250 / 250 2,500 mcg In 250 ml @ 50 MCG/HR 5 mls/hr IV.SIG TITRATE PRN Rx #:[id number] Free Water Amount 50 / 50 0 / 0 Output: Urine Amount (Catheter) 725 / 725 1000 / 1000 Indwelling Urethral Catheter 725 / 725 1000 / 1000 Chest Tube Drainage 20 / 20 20 / 20 Left Upper 20 / 20 20 / 20 Other: Date of Last Bowel Movement 08/10/18 08/14/18 # Bowel Movements 1 Narrative: Right lower extremity: Clean dry dressings intact. Splint taken down revealing small blister in the medial posterior heel. Lateral portion of the ankle and foot have bruising but skin is intact. New splint reapplied Left lower extremity: Knee immobilizer in place. Clean dry dressings intact. Swelling over the ankle. No significant crepitus. Intact distal pulses and good capillary refill - Urinary Catheter Management Indwelling Urethral Catheter Cath placed during this visit: yes Urethral indwelling: Yes Reason for continuing: Hourly intake/output Insertion date: 08/05/18 Insertion time: 00:00 Results - Labs CBC & Chem 7: 08/14/18 05:36 08/14/18 05:36 Laboratory Results - last 24 hr 08/14/18 08/14/18 08/14/18 05:12 05:36 05:36 WBC 15.6 H RBC 2.72 L Hgb 8.5 L Hct 25.6 L MCV 94.0 MCH 31.2 MCHC 33.2 RDW 17.5 H Plt Count 364 MPV 10.1 Prelim Diff (Auto) Slide review pending Neut % (Auto) 81.7 H Lymph % (Auto) 6.2 L [place] % (Auto) 10.9 H Eos % (Auto) 0.8 Baso % (Auto) 0.4 Neut # (Auto) 12.7 H Lymph # (Auto) 1.0 [place] # (Auto) 1.7 H Eos # (Auto) 0.1 Baso # (Auto) 0.1 WBC Differential Manual diff final Seg Neuts % (Manual) 64 Band Neuts % (Manual) 17 H Monocytes % (Manual) 15 H Myelocytes % (Man) 3 H Abs Neuts (Manual) 13.1 H Differential Comment . Toxic Granulation 1+ H Platelet Estimate Normal Platelet Morphology Enlarged H Puncture Site Left radial Patient Temperature 98.6 O2 Saturation 93 ABG pH 7.47 H ABG pCO2 39 ABG pO2 76 ABG HCO3 28 H ABG O2 Content 11.3 L ABG Base Excess 4.7 H ABG Methemoglobin 1.3 Bereket Test Present Hemoglobin 8.6 L Carboxyhemoglobin 1.4 O2 Delivery Device Vent Vent Setting Prvc/ac Inspired O2 65 Critical Value No Sodium 140 Potassium 3.4 L Chloride 102 Carbon Dioxide 28.6 Anion Gap 9 BUN 18 Creatinine 0.39 L Estimated GFR Greater than 89 Random Glucose 96 Calcium 8.2 L Total Bilirubin 0.7 AST 33 ALT 35 Alkaline Phosphatase 138 H Total Protein 6.3 L Albumin 1.9 L Microbiology 08/13/18 10:38 Bronchial - Right Lower Lobe Gram Stain - Final 08/12/18 09:58 Catheterized Urine Urine Culture - Final No growth in 48 hours 08/12/18 13:45 Sputum - Endotracheal Gram Stain - Final 08/12/18 13:45 Sputum - Endotracheal Sputum Culture - Preliminary gram negative rods 08/12/18 08:03 Blood - Other Aerobic Blood Culture - Preliminary No growth in 1 day 08/12/18 08:03 Blood - Other Anaerobic Blood Culture - Preliminary No growth in 1 day 08/12/18 07:58 Blood - Other Aerobic Blood Culture - Preliminary No growth in 1 day 08/12/18 07:58 Blood - Other Anaerobic Blood Culture - Preliminary No growth in 1 day - Imaging Impressions Chest X-Ray 08/13/18 14:17 CONCLUSION: 1. New tracheostomy tube again appears appropriately positioned. 2. Left chest tube remains in place. There is a tiny left apical pneumothorax unchanged. 3. Patchy parenchymal consolidation of both bases unchanged. Ankle X-Ray 08/14/18 00:00 CONCLUSION: Soft tissue swelling with no acute fracture or malalignment. Foot X-Ray 08/14/18 00:00 CONCLUSION: Healing fractures as above. Chest X-Ray 08/14/18 06:00 CONCLUSION: Stable appearance of the chest with bibasilar airspace disease and a small left apical pneumothorax. Assessment and Plan - Assessment and Plan 1) Right Calcaneus Fracture 2) Right distal Femur Fracture s/p ORIF - POD 6 3) Left Patella Fracture s/p ORIF - POD 9 Daily dressing changes left knee and right upper leg Xeroform 4 x 4's and Fernando wrap Maintain knee immobilizers and splint Resume Lovenox per trauma service -Right ankle and calcaneus were resplinted today to evaluate skin for potential surgery -Noticeable swelling on the left ankle with minimal crepitus. Ankle x-rays will be performed Will discuss with Dr. Dubose when to potentially progress with surgery.
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
[2018-08-14] MEDS ORDERED: Lidocaine PF 1% Inj 5 ML Syringe OTHER ONE (17:00)
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
[2018-08-15] MEDS: Oral Hygiene Kit OROPHARYNG SCH ×4 (00:34→17:25)
--- NOTE | 2018-08-15 05:10 | XR ---
EXAM DATE: 08/15/2018 4:17 AM EST AGE/SEX: 33 years / Female INDICATIONS: Short of breath. CLINICAL DATA: This is the patient's subsequent encounter. Patient reports that signs and symptoms h ave been present for 1 week and indicates a pain score of 0/10. MEDICAL/SURGICAL HISTORY: Non-responsive. . T-spine fracture, Pneumothorax, left. . Chest tube, left. COMPARISON: [facility] [place]ST 1V SINGLE AP, 08/14/2018. . FINDINGS: A single AP view of the chest demonstrates stable position of the left-sided thoracostomy tube with a persistent small left apical pneumothorax. Improving aeration in the lung bases but bibasilar consol idation persists. Tracheostomy tube is stable in position CONCLUSION: 1. Improving aeration in the bases. 2. Stable position of left-sided thoracostomy tube with persistent small apical left pneumothorax. Electronically signed by: Beny Gandhi MD Board Certified Radiologist 08/15/2018 5:09 AM EST
[2018-08-15 05:35] LABS: ABG Base Excess -1.5 mmol/L (-2-2); ABG PCO2 35 mmHg (38-42); ABG PO2 117 mmHg (61-120)
[2018-08-15 06:57] LABS: Baso # (Auto) 0.1 th/mm3 (0.0-0.2); Baso % (Auto) 0.4 % (0.0-2.0); Eos # (Auto) 0.2 th/mm3 (0.0-0.4); Eos % (Auto) 1.4 % (0.0-4.0); Hematocrit 27.2 % (35.0-46.0); Hemoglobin 8.9 gm/dL (11.6-15.3); Lymph # (Auto) 1.2 th/mm3 (1.0-4.8); Lymph % (Auto) 8.4 % (9.0-44.0); Mean Corpuscular HGB Conc 32.8 % (32.0-36.0); Mean Corpuscular Hemoglobin 31.2 pg (27.0-34.0); Mean Corpuscular Volume 95.1 fL (80.0-100.0); Mean Platelet Volume 10.2 fL (7.0-11.0); Mono # (Auto) 1.5 th/mm3 (0.0-0.9); Mono % (Auto) 10.3 % (0.0-8.0); Neut # (Auto) 11.7 th/mm3 (1.8-7.7); Neut % (Auto) 79.5 % (16.0-70.0); Platelet Count 458 th/mm3 (150-450); Red Blood Count 2.86 mil/mm3 (4.00-5.30); Red Cell Distribution Width 17.8 % (11.6-17.2); White Blood Count 14.7 th/mm3 (4.0-11.0)
[2018-08-15 07:18] LABS: Chloride 105 meq/L (98-107); Glucose,Random 95 mg/dL (74-106); Potassium 3.6 meq/L (3.5-5.1); Sodium 139 meq/L (136-145)
[2018-08-15 07:21] LABS: Alanine Aminotransferase 36 U/L (10-53); Albumin 2.1 g/dL (3.4-5.0); Alkaline Phosphatase 151 U/L (45-117); Anion Gap 11 meq/L (5-15); Aspartate Aminotransferase 30 U/L (15-37); Blood Urea Nitrogen 19 mg/dL (7-18); Calcium 7.7 mg/dL (8.5-10.1); Carbon Dioxide 23.5 meq/L (21.0-32.0); Glomerular Filtration Rate Greater Than 89 mL/min (>89); Total Protein 6.5 g/dL (6.4-8.2)
--- NOTE | 2018-08-15 07:24 | P.PNOP ---
Subjective Interval history: s/p right calcaneus fx POD 7 s/p ORIF right distal femur fx POD 10 s/p ORIF left patella trached. awake. moving freely in bed Physical Exam Vital signs: Vital Signs 08/14/18 07:41 08/14/18 08:00 08/14/18 08:33 Temperature 99.7 F H Pulse Rate 101 H 96 H Respiratory Rate 24 23 23 Blood Pressure 123/57 L Pulse Oximetry 93 L 93 L 94 L 08/14/18 09:00 08/14/18 10:00 08/14/18 10:07 Temperature Pulse Rate 98 H 92 H Respiratory Rate 23 29 H 27 H Blood Pressure Pulse Oximetry 90 L 92 L 91 L 08/14/18 10:44 08/14/18 11:00 08/14/18 12:00 Temperature 98.7 F Pulse Rate 101 H 107 H 111 H Respiratory Rate Blood Pressure 131/72 134/76 137/87 Pulse Oximetry 96 95 08/14/18 12:22 08/14/18 13:00 08/14/18 14:00 Temperature Pulse Rate 107 H 98 H Respiratory Rate 25 H Blood Pressure 130/65 124/64 Pulse Oximetry 99 94 L 95 08/14/18 15:00 08/14/18 16:00 08/14/18 17:00 Temperature 99.2 F Pulse Rate 102 H 83 80 Respiratory Rate Blood Pressure 124/59 L 118/59 L 118/59 L Pulse Oximetry 96 97 94 L 08/14/18 17:03 08/14/18 17:06 08/14/18 17:07 Temperature Pulse Rate 82 80 Respiratory Rate 18 Blood Pressure 112/54 L 117/56 L Pulse Oximetry 95 100 97 08/14/18 17:09 08/14/18 17:12 08/14/18 17:15 Temperature Pulse Rate 85 88 83 Respiratory Rate Blood Pressure 97/49 L 102/54 L 109/57 L Pulse Oximetry 98 99 100 08/14/18 17:18 08/14/18 17:20 08/14/18 17:24 Temperature Pulse Rate 86 83 85 Respiratory Rate Blood Pressure 106/55 L 108/62 106/63 Pulse Oximetry 100 100 97 08/14/18 17:31 08/14/18 17:46 08/14/18 18:00 Temperature Pulse Rate 93 H 93 H 92 H Respiratory Rate Blood Pressure 131/58 L 134/65 Pulse Oximetry 91 L 92 L 88 L 08/14/18 18:01 08/14/18 18:17 08/14/18 18:31 Temperature Pulse Rate 93 H 100 H 99 H Respiratory Rate Blood Pressure 127/67 122/64 126/66 Pulse Oximetry 88 L 92 L 94 L 08/14/18 18:46 08/14/18 19:00 08/14/18 19:01 Temperature Pulse Rate 105 H 106 H 105 H Respiratory Rate Blood Pressure 133/63 123/58 L Pulse Oximetry 95 95 96 08/14/18 19:17 08/14/18 19:31 08/14/18 19:46 Temperature Pulse Rate 102 H 103 H 99 H Respiratory Rate Blood Pressure 117/55 L 121/56 L 111/53 L Pulse Oximetry 96 97 95 08/14/18 20:00 08/14/18 20:02 08/14/18 20:26 Temperature 97.7 F Pulse Rate 93 H 94 H 94 H Respiratory Rate 25 H 26 H Blood Pressure 105/51 L Pulse Oximetry 95 94 L 95 08/14/18 20:37 08/14/18 20:45 08/14/18 21:00 Temperature Pulse Rate 98 H 96 H 96 H Respiratory Rate 28 H 25 H 24 Blood Pressure 114/58 L 109/56 L 109/59 L Pulse Oximetry 95 96 97 08/14/18 21:15 08/14/18 21:30 08/14/18 21:45 Temperature Pulse Rate 94 H 90 92 H Respiratory Rate 25 H 25 H 30 H Blood Pressure 108/59 L 111/59 L 107/55 L Pulse Oximetry 98 97 99 08/14/18 22:00 08/14/18 22:15 08/14/18 22:30 Temperature Pulse Rate 93 H 91 H 94 H Respiratory Rate 30 H 26 H 30 H Blood Pressure 112/58 L 116/60 115/54 L Pulse Oximetry 98 98 97 08/14/18 22:45 08/14/18 23:00 08/14/18 23:15 Temperature Pulse Rate 94 H 92 H 92 H Respiratory Rate 21 19 20 Blood Pressure 109/52 L 109/53 L 107/56 L Pulse Oximetry 96 97 97 08/14/18 23:30 08/14/18 23:45 08/15/18 00:00 Temperature 96.6 F L Pulse Rate 92 H 90 90 Respiratory Rate 19 23 20 Blood Pressure 102/51 L 108/56 L 101/56 L Pulse Oximetry 97 96 96 08/15/18 00:15 08/15/18 00:30 08/15/18 00:38 Temperature Pulse Rate 94 H 89 Respiratory Rate 30 H 20 23 Blood Pressure 131/63 111/56 L Pulse Oximetry 98 97 08/15/18 00:45 08/15/18 01:00 08/15/18 01:15 Temperature Pulse Rate 88 90 87 Respiratory Rate 20 20 19 Blood Pressure 113/55 L 112/57 L 110/59 L Pulse Oximetry 98 96 97 08/15/18 01:30 08/15/18 01:45 08/15/18 02:00 Temperature Pulse Rate 89 89 88 Respiratory Rate 18 27 H 19 Blood Pressure 107/55 L 105/56 L 107/55 L Pulse Oximetry 97 97 98 08/15/18 02:15 08/15/18 02:30 08/15/18 02:45 Temperature Pulse Rate 86 99 H 104 H Respiratory Rate 19 27 H 30 H Blood Pressure 104/54 L 118/62 126/65 Pulse Oximetry 97 96 97 08/15/18 03:00 08/15/18 03:15 08/15/18 03:30 Temperature Pulse Rate 108 H 108 H 106 H Respiratory Rate 22 27 H 30 H Blood Pressure 120/59 L 126/63 126/66 Pulse Oximetry 98 98 100 08/15/18 03:34 08/15/18 03:45 08/15/18 04:00 Temperature Pulse Rate 103 H 110 H 106 H Respiratory Rate 24 27 H 24 Blood Pressure 118/63 127/71 Pulse Oximetry 97 100 99 08/15/18 04:15 08/15/18 04:30 08/15/18 04:45 Temperature Pulse Rate 98 H 97 H 97 H Respiratory Rate 21 22 25 H Blood Pressure 123/62 124/55 L 115/71 Pulse Oximetry 100 99 100 08/15/18 05:00 08/15/18 05:15 08/15/18 05:30 Temperature Pulse Rate 97 H 95 H 92 H Respiratory Rate 23 19 21 Blood Pressure 119/66 113/60 110/60 Pulse Oximetry 100 100 99 08/15/18 05:35 08/15/18 05:45 08/15/18 06:00 Temperature Pulse Rate 92 H 92 H Respiratory Rate 33 H 18 Blood Pressure 115/69 Pulse Oximetry 97 97 99 08/15/18 06:36 08/15/18 06:45 08/15/18 07:00 Temperature Pulse Rate 92 H 88 98 H Respiratory Rate 28 H 23 26 H Blood Pressure 120/68 127/59 L 139/65 Pulse Oximetry 99 99 97 08/15/18 07:15 Temperature Pulse Rate 101 H Respiratory Rate 24 Blood Pressure 121/59 L Pulse Oximetry 100 Intake & Output 08/14/18 08/15/18 08/15/18 18:59 06:59 18:59 Intake Total 750 / 750 250 / 250 Output Total 1220 / 1220 830 / 830 Balance -470 / -470 -580 / -580 Weight 55.1 kg Intake: IV 650 / 650 250 / 250 Versed Inj 100 mg In 100 ml @ 2 100 / 100 MG/HR 2 mls/hr IV.CONT TITRATE PRN Rx#:[id number] Maxipime Inj 2,000 MG In NS Inj 100 / 100 100 ML @ 200 mls/hr IV.SIG Q8H MAEVE Rx#:[id number] KCl 20 mEq Premix Inj 20 meq In 200 / 200 100 ml @ 50 mls/hr IV.SIG Q2H PRN Rx#:[id number] fentaNYL 10 mcg/mL Premix Drip 250 / 250 250 / 250 2,500 mcg In 250 ml @ 50 MCG/HR 5 mls/hr IV.SIG TITRATE PRN Rx #:[id number] Anesthesia Amount 100 / 100 Output: Stool 0 / 0 Urine Amount (Catheter) 1200 / 1200 800 / 800 Indwelling Urethral Catheter 1200 / 1200 800 / 800 Chest Tube Drainage 20 / 20 30 / 30 Left Upper 20 / 20 30 / 30 Other: Date of Last Bowel Movement 08/14/18 Narrative: LLE: dressings clean and dry. intact. +CKS RLE: dressings clean and dry. intact. +CKS. +splint - Urinary Catheter Management Indwelling Urethral Catheter Cath placed during this visit: yes Urethral indwelling: Yes Reason for continuing: Hourly intake/output Insertion date: 08/05/18 Insertion time: 00:00 Results - Labs CBC & Chem 7: 08/15/18 05:47 08/15/18 05:47 Laboratory Results - last 24 hr 08/13/18 08/14/1819 09:07 05:36 05:19 WBC RBC Hgb Hct MCV MCH MCHC RDW Plt Count MPV Neut % (Auto) Lymph % (Auto) Frontier % (Auto) Eos % (Auto) Baso % (Auto) Neut # (Auto) Lymph # (Auto) Frontier # (Auto) Eos # (Auto) Baso # (Auto) WBC Differential Manual diff final Seg Neuts % (Manual) 64 Band Neuts % (Manual) 17 H Monocytes % (Manual) 15 H Myelocytes % (Man) 3 H Abs Neuts (Manual) 13.1 H Differential Comment Toxic Granulation 1+ H Platelet Estimate Normal Platelet Morphology Enlarged H Puncture Site Right radial Patient Temperature 98.6 O2 Saturation 96 ABG pH 7.42 ABG pCO2 35 L ABG pO2 117 ABG HCO3 22 ABG O2 Content 16.0 ABG Base Excess -1.5 ABG Methemoglobin 1.3 Bereket Test Present Hemoglobin 11.7 L Carboxyhemoglobin 1.1 O2 Delivery Device Ventilator Vent Setting [id number] Inspired O2 65 Critical Value No Sodium Potassium Chloride Carbon Dioxide Anion Gap BUN Creatinine Estimated GFR Random Glucose Calcium Total Bilirubin AST ALT Alkaline Phosphatase Total Protein Albumin Antibody Identification Non-Specific Agglutinin Rout Panel Path Interp 08/15/18 08/15/18 05:47 05:47 WBC 14.7 H RBC 2.86 L Hgb 8.9 L Hct 27.2 L MCV 95.1 MCH 31.2 MCHC 32.8 RDW 17.8 H Plt Count 458 H MPV 10.2 Neut % (Auto) 79.5 H Lymph % (Auto) 8.4 L Frontier % (Auto) 10.3 H Eos % (Auto) 1.4 Baso % (Auto) 0.4 Neut # (Auto) 11.7 H Lymph # (Auto) 1.2 Frontier # (Auto) 1.5 H Eos # (Auto) 0.2 Baso # (Auto) 0.1 WBC Differential . Seg Neuts % (Manual) Band Neuts % (Manual) Monocytes % (Manual) Myelocytes % (Man) Abs Neuts (Manual) Differential Comment Auto diff final Toxic Granulation Platelet Estimate Platelet Morphology Puncture Site Patient Temperature O2 Saturation ABG pH ABG pCO2 ABG pO2 ABG HCO3 ABG O2 Content ABG Base Excess ABG Methemoglobin Bereket Test Hemoglobin Carboxyhemoglobin O2 Delivery Device Vent Setting Inspired O2 Critical Value Sodium 139 Potassium 3.6 Chloride 105 Carbon Dioxide 23.5 Anion Gap 11 BUN 19 H Creatinine 0.46 L Estimated GFR Greater than 89 Random Glucose 95 Calcium 7.7 L Total Bilirubin 0.6 AST 30 ALT 36 Alkaline Phosphatase 151 H Total Protein 6.5 Albumin 2.1 L Antibody Identification Rout Panel Path Interp Microbiology 08/13/18 10:38 Bronchial - Right Lower Lobe Gram Stain - Final 08/13/18 10:38 Bronchial - Right Lower Lobe Bronchial Culture - Preliminary Staphylococcus aureus gram negative rods 08/12/18 13:45 Sputum - Endotracheal Gram Stain - Final 08/12/18 13:45 Sputum - Endotracheal Sputum Culture - Final Serratia marcescens Escherichia coli 08/12/18 08:03 Blood - Other Aerobic Blood Culture - Preliminary No growth in 2 days 08/12/18 08:03 Blood - Other Anaerobic Blood Culture - Preliminary No growth in 2 days 08/12/18 07:58 Blood - Other Aerobic Blood Culture - Preliminary No growth in 2 days 08/12/18 07:58 Blood - Other Anaerobic Blood Culture - Preliminary No growth in 2 days 08/12/18 09:58 Catheterized Urine Urine Culture - Final No growth in 48 hours - Imaging Impressions Ankle X-Ray 08/14/18 00:00 CONCLUSION: Soft tissue swelling with no acute fracture or malalignment. Foot X-Ray 08/14/18 00:00 CONCLUSION: Healing fractures as above. Chest X-Ray 08/15/18 06:00 CONCLUSION: 1. Improving aeration in the bases. 2. Stable position of left-sided thoracostomy tube with persistent small apical left pneumothorax. Assessment and Plan - Assessment and Plan 1) Right Calcaneus Fracture 2) Right distal Femur Fracture s/p ORIF - POD 7 3) Left Patella Fracture s/p ORIF - POD 10 Daily dressing changes left knee and right upper leg Xeroform 4 x 4's and Fernando wrap Maintain knee immobilizers and splint Resume Lovenox per trauma service -plan for surgery today with [facility] for ORIF of right calcaneus
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
[2018-08-15] MEDS ORDERED: HYDROmorphone PF Inj 1 MG/ML Ampul ONE (08:46)
[2018-08-15] MEDS ORDERED: Post-op Orders (for Pharmacy) OTHER STA (10:03)
--- NOTE | 2018-08-15 10:11 | P.OP ---
- Preoperative Diagnosis (1) Closed right calcaneal fracture Date of procedure: 08/15/18 Procedure: Open reduction to fixation right calcaneus Surgeon: Nitish Banda MD Employment Advisor: BETSY Hodges PA-C The surgical procedure was assisted by my physician elementary assistant teacher. My P.A. presence was necessary throughout this case for the manipulation and positioning of the surgical extremity. My P.A. was assisting me throughout the duration of this procedure. The skill set of a physician elementary assistant teacher was medically necessary to complete this procedure. During the surgical case the automotive service technician was working at the back table and the physician elementary assistant teacher was directly assisting me. Operation and Findings: Tourniquet time -- 45 minutes at 250 mmHg Implants used: Synthes Details of procedure: Informed consent obtained, operative site was marked. The foot and ankle were seen and evaluated this morning. Soft tissue swelling had significantly improved and appeared to be ready for surgery. He was brought to the operating room and placed on the operating room table. She was given intravenous sedation, general endotracheal anesthesia. He received IV antibiotics and was placed in the lateral decubitus position. Foot and leg were prepped with alcohol, followed by Hibiclens, draped in usual sterile fashion. A time out procedure was preformed. The procedure began with a 4 centimeter incision over the lateral aspect of the calcaneus centers over the subtalar joint. A full thickness flap was carefully elevated. The perineal tendons were also mobilized. Periosteum was elevated off the calcaneous. At this point the leg was elevated. The tourniquet was inflated. Attention was now turned to exposure of the calcaneus. The lateral wall was comminuted. A Steinmann pin was placed into the talus and into the calcaneus. Laminar tableau analyst was now placed to help distract the fracture. Articular surface was now visualized. Articular surface was in several fragments. The medial fragment was elevated and reduced up to the talus and the K-wire was used to hold provisional fixation. Next, the lateral and posterior fragments of the posterior facet were reduced. The talus was used as a template for reduction. The K-wires were used to hold provisional fixation. The laminar tableau analyst was now used to distract the posterior tuberosity. A Shands pin was placed to help joystick the garment worker tuberosity into appropriate position. Multiple K-wires result provisional fixation. Multiplanar fluoroscopy confirmed well aligned fracture. The anterior process was now reduced. This keyed into appropriate position. Additional K wires were used to hold provisional fixation. At this point a Synthes calcaneus plate was selected. Plate was placed underneath the peroneal tendons. Plate was provisionally held the bone with K wires. 2.7 cortical lag screws were placed through the plate to compress the posterior facet fragments. Good compression was obtained. Additional cortical and locking screws were placed into the plate. 3 small percutaneous incisions were made around the posterior heel. 3 long 3.5 cortical screws were placed in the posterior tuberosity into the anterior process. All screws were predrilled and premeasured for appropriate lengths. Fluoroscopy confirmed appropriate alignment of fracture. Final fluoroscopy confirmed well aligned fracture with well-placed hardware. Wound was thoroughly irrigated. Tourniquet was released. Hemostasis was confirmed. Fascia was closed with 0 Vicryl, subcutaneous tissues closed with 3-0 Vicryl, and skin was closed with 3-0 nylon. Sterile dressings were applied. Patient was placed into a well molded well-padded splint. Patient was transferred to recovery in stable condition.
[2018-08-15] MEDS ORDERED: fentaNYL Citrate Inj 100 MCG/2 ML Ampul ONE (10:35)
[2018-08-15] MEDS: Lidocaine 5% Patch T-DERMAL SCH (10:58)
[2018-08-15] MEDS: Famotidine 20 MG Tablet PO SCH ×2 (10:58→20:58)
[2018-08-15] MEDS: QUEtiapine 25 MG Tablet PO SCH ×2 (10:59→20:58)
[2018-08-15] MEDS: Methocarbamol 500 MG Tablet PO SCH ×3 (10:59→21:02)
[2018-08-15] MEDS: levoFLOXacin 750 MG Tablet PO SCH (10:59)
[2018-08-15] MEDS ORDERED: Vancomycin Inj 1 GM/200 ML PIGGYBACK IV.SIG SCH (11:00)
[2018-08-15] MEDS: Senna/Docusate Sodium 8.6/50 MG Tablet PO SCH ×2 (11:00→20:57)
[2018-08-15] MEDS: MINERAL OIL LEFT EYE SCH ×4 (11:00→20:58)
[2018-08-15] MEDS: [UNRECOGNIZED DRUG - OTHER] LEFT EYE SCH ×2 (11:00→20:58)
[2018-08-15] MEDS: [UNRECOGNIZED DRUG - OTHER] LEFT EYE SCH ×4 (11:00→20:58)
[2018-08-15] MEDS ORDERED: ceFAZolin Inj 2,000 MG in Sodium Chlor 0.9% Inj 80 ML IV.SIG SCH (11:00)
[2018-08-15] MEDS: Calcium/Vitamin D 250/125 MG Tablet PO SCH ×3 (11:00→18:15)
[2018-08-15] MEDS: Chlorhexidine 0.12% Oral Kit 15 ML UDC OROPHARYNG SCH ×2 (11:01→20:58)
[2018-08-15] MEDS: Sodium Chloride 0.9% 2 ML Flush BID IV.FLUSH SCH ×2 (11:01→20:58)
[2018-08-15] MEDS: Midazolam 100 MG/100 ML Inj 100 MG/100 ML BAG IV.CONT PRN (11:20)
[2018-08-15] MEDS: fentaNYL 10 mcg/mL Premix Drip 2,500 MCG/250 ML BAG IV.SIG PRN (11:22)
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
[2018-08-15] MEDS ORDERED: Vancomycin Consult Pharmacy OTHER PRN (12:53)
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
[2018-08-15] MEDS ORDERED: Vancomycin Consult Pharmacy 1 EACH OTHER SCH (13:00)
--- NOTE | 2018-08-15 13:14 | XR ---
EXAM DATE: 08/15/2018 1:07 PM EST AGE/SEX: 33 years / Female INDICATIONS: Post-op ORIF right calcaneous. CLINICAL DATA: This is the patient's subsequent encounter. Patient reports that signs and symptoms h ave been present for 1 week and indicates a pain score of Nonresponsive. MEDICAL/SURGICAL HISTORY: Non-responsive. Non-responsive. COMPARISON: No prior exams available for comparison. CONCLUSION: Fluoroscopic images demonstrates internal fixation with multiple screws and plate and screws along th e calcaneus near anatomic alignment. Electronically signed by: Levar Nation MD Board Certified Radiologist 08/15/2018 1:12 PM EST
[2018-08-15] MEDS: Vancomycin Inj 1,000 MG in Sodium Chlor 0.9% Inj 250 ML IV.SIG SCH (17:19)
[2018-08-15] MEDS: ceFAZolin 2 GM Premix Inj 2 GM/50 ML PIGGYBACK IV.SIG SCH (18:15)
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
[2018-08-15] MEDS ORDERED: Enoxaparin Inj 30 MG/0.3 ML Syringe SQ SCH (21:00)
[2018-08-15] MEDS ORDERED: Vancomycin Inj 1,000 MG in Sodium Chlor 0.9% Inj 250 ML IV.SIG SCH (21:00)
[2018-08-16] MEDS: Vancomycin Inj 1,000 MG in Sodium Chlor 0.9% Inj 250 ML IV.SIG SCH ×3 (00:44→20:18)
[2018-08-16] MEDS: Oral Hygiene Kit OROPHARYNG SCH ×4 (00:45→15:01)
[2018-08-16] MEDS: Midazolam 100 MG/100 ML Inj 100 MG/100 ML BAG IV.CONT PRN ×2 (01:20→14:51)
[2018-08-16] MEDS: ceFAZolin 2 GM Premix Inj 2 GM/50 ML PIGGYBACK IV.SIG SCH ×3 (01:57→17:51)
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
[2018-08-16 06:17] LABS: ABG PCO2 32 mmHg (38-42); ABG PO2 66 mmHg (61-120)
[2018-08-16] MEDS: Methocarbamol 500 MG Tablet PO SCH ×3 (06:36→22:27)
[2018-08-16] MEDS: fentaNYL 10 mcg/mL Premix Drip 2,500 MCG/250 ML BAG IV.SIG PRN (06:37)
[2018-08-16 06:53] LABS: Baso # (Auto) 0.1 th/mm3 (0.0-0.2); Baso % (Auto) 0.4 % (0.0-2.0); Eos # (Auto) 0.1 th/mm3 (0.0-0.4); Eos % (Auto) 0.7 % (0.0-4.0); Hematocrit 28.1 % (35.0-46.0); Hemoglobin 9.3 gm/dL (11.6-15.3); Lymph # (Auto) 1.4 th/mm3 (1.0-4.8); Lymph % (Auto) 7.6 % (9.0-44.0); Mean Corpuscular HGB Conc 32.9 % (32.0-36.0); Mean Corpuscular Hemoglobin 31.2 pg (27.0-34.0); Mean Corpuscular Volume 94.7 fL (80.0-100.0); Mean Platelet Volume 9.5 fL (7.0-11.0); Mono # (Auto) 2.2 th/mm3 (0.0-0.9); Mono % (Auto) 11.4 % (0.0-8.0); Neut # (Auto) 15.2 th/mm3 (1.8-7.7); Neut % (Auto) 79.9 % (16.0-70.0); Platelet Count 634 th/mm3 (150-450); Red Blood Count 2.97 mil/mm3 (4.00-5.30); Red Cell Distribution Width 17.8 % (11.6-17.2)
[2018-08-16 07:38] LABS: Albumin 2.3 g/dL (3.4-5.0); Anion Gap 9 meq/L (5-15); Aspartate Aminotransferase 35 U/L (15-37); Blood Urea Nitrogen 13 mg/dL (7-18); Calcium 7.8 mg/dL (8.5-10.1); Carbon Dioxide 26.9 meq/L (21.0-32.0); Chloride 103 meq/L (98-107); Glomerular Filtration Rate Greater Than 89 mL/min (>89); Glucose,Random 128 mg/dL (74-106); Potassium 3.3 meq/L (3.5-5.1); Sodium 139 meq/L (136-145)
[2018-08-16 07:43] LABS: Alanine Aminotransferase 33 U/L (10-53); Alkaline Phosphatase 183 U/L (45-117); Total Protein 6.8 g/dL (6.4-8.2)
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
[2018-08-16] MEDS: Calcium/Vitamin D 250/125 MG Tablet PO SCH ×3 (08:45→17:52)
[2018-08-16] MEDS: Senna/Docusate Sodium 8.6/50 MG Tablet PO SCH ×2 (08:45→20:17)
[2018-08-16] MEDS: Famotidine 20 MG Tablet PO SCH ×2 (08:45→20:16)
[2018-08-16] MEDS ORDERED: Pharmacy Ordered Lab Info OTHER ONE (08:45)
[2018-08-16] MEDS: levoFLOXacin 750 MG Tablet PO SCH (08:45)
[2018-08-16] MEDS: QUEtiapine 25 MG Tablet PO SCH ×2 (08:52→20:17)
[2018-08-16] MEDS: Lidocaine 5% Patch T-DERMAL SCH (08:52)
[2018-08-16] MEDS: Enoxaparin Inj 30 MG/0.3 ML Syringe SQ SCH ×2 (09:00→22:27)
[2018-08-16] MEDS: Chlorhexidine 0.12% Oral Kit 15 ML UDC OROPHARYNG SCH ×2 (09:02→20:18)
[2018-08-16] MEDS: Sodium Chloride 0.9% 2 ML Flush BID IV.FLUSH SCH ×2 (09:03→20:17)
[2018-08-16] MEDS: [UNRECOGNIZED DRUG - OTHER] LEFT EYE SCH ×2 (09:03→20:18)
[2018-08-16] MEDS: MINERAL OIL LEFT EYE SCH ×4 (09:03→20:18)
[2018-08-16] MEDS: [UNRECOGNIZED DRUG - OTHER] LEFT EYE SCH ×4 (09:03→20:18)
--- NOTE | 2018-08-16 10:02 | P.PNOP ---
Subjective Interval history: Patient is trached and with sedation is stable Physical Exam Vital signs: Vital Signs 08/15/18 10:22 08/15/18 10:23 08/15/18 11:00 Temperature Pulse Rate 96 H 92 H 120 H Respiratory Rate 64 H Blood Pressure 139/86 Pulse Oximetry 83 L 82 L 94 L 08/15/18 12:00 08/15/18 12:45 08/15/18 13:00 Temperature 99.9 F H Pulse Rate 96 H 93 H 90 Respiratory Rate 20 23 21 Blood Pressure 133/82 Pulse Oximetry 99 100 100 08/15/18 13:27 08/15/18 14:00 08/15/18 15:00 Temperature Pulse Rate 105 H 124 H 111 H Respiratory Rate 25 H 29 H 22 Blood Pressure 136/78 Pulse Oximetry 100 100 99 08/15/18 16:00 08/15/18 16:08 08/15/18 16:32 Temperature 99.0 F Pulse Rate 113 H 124 H Respiratory Rate 28 H 39 H 18 Blood Pressure 153/81 H Pulse Oximetry 99 100 95 08/15/18 17:00 08/15/18 18:00 08/15/18 18:10 Temperature 98.2 F Pulse Rate 104 H 96 H 96 H Respiratory Rate 29 H 30 H 30 H Blood Pressure 139/75 Pulse Oximetry 100 91 L 100 08/15/18 19:00 08/15/18 20:00 08/15/18 20:33 Temperature 98.9 F Pulse Rate 89 92 H 104 H Respiratory Rate 22 24 25 H Blood Pressure Pulse Oximetry 99 95 100 08/15/18 20:55 08/15/18 21:00 08/15/18 21:30 Temperature Pulse Rate 110 H 105 H Respiratory Rate 29 H 30 H Blood Pressure 132/73 138/74 Pulse Oximetry 100 96 92 L 08/15/18 21:32 08/15/18 22:00 08/15/18 23:00 Temperature Pulse Rate 89 114 H Respiratory Rate 28 H 21 26 H Blood Pressure 130/73 141/71 H Pulse Oximetry 95 95 08/15/18 23:02 08/15/18 23:32 08/16/18 00:00 Temperature 98.9 F Pulse Rate 98 H Respiratory Rate 25 H 29 H 15 Blood Pressure 129/71 Pulse Oximetry 96 08/16/18 00:14 08/16/18 01:00 08/16/18 02:00 Temperature Pulse Rate 88 101 H Respiratory Rate 24 19 21 Blood Pressure 128/68 137/81 Pulse Oximetry 92 L 95 99 08/16/18 02:27 08/16/18 03:00 08/16/18 03:43 Temperature Pulse Rate 97 H 100 H Respiratory Rate 23 20 24 Blood Pressure 132/90 Pulse Oximetry 100 95 08/16/18 03:54 08/16/18 04:00 08/16/18 05:00 Temperature 99.0 F Pulse Rate 103 H 116 H Respiratory Rate 23 Blood Pressure 147/81 H 146/77 H Pulse Oximetry 97 100 96 08/16/18 06:00 08/16/18 07:00 08/16/18 07:06 Temperature 98.9 F Pulse Rate 121 H 107 H Respiratory Rate 38 H 23 Blood Pressure 148/89 H 137/63 Pulse Oximetry 96 97 08/16/18 07:07 Temperature Pulse Rate Respiratory Rate 23 Blood Pressure Pulse Oximetry Intake & Output 08/15/18 08/16/18 08/16/18 18:59 06:59 18:59 Intake Total 1550 / 1550 1362 / 1362 200 / 200 Output Total 1131 / 1131 650 / 650 Balance 419 / 419 712 / 712 200 / 200 Weight 55.6 kg Intake: IV 350 / 350 950 / 950 Versed Inj 100 mg In 100 ml @ 2 100 / 100 100 / 100 MG/HR 2 mls/hr IV.CONT TITRATE PRN Rx#:[id number] Vancomycin Inj 1,000 MG In NS 500 / 500 Inj 250 ML @ 250 mls/hr IV.SIG Q8H MAEVE Rx#:[id number] Ancef 2 GM Premix Inj 2 gm In 100 / 100 50 ml @ 100 mls/hr IV.SIG Q8H MAEVE Rx#:[id number] fentaNYL 10 mcg/mL Premix Drip 250 / 250 250 / 250 2,500 mcg In 250 ml @ 50 MCG/HR 5 mls/hr IV.SIG TITRATE PRN Rx #:[id number] Tube Feeding 212 / 212 Water Bolus Amount 200 / 200 Free Water Amount 400 / 400 200 / 200 200 / 200 Anesthesia Amount 600 / 600 Output: Stool 1 / 1 Estimated Blood Loss 30 / 30 Urine Amount (Catheter) 1100 / 1100 650 / 650 Indwelling Urethral Catheter 1100 / 1100 650 / 650 Chest Tube Drainage 0 / 0 Left Upper 0 / 0 Other: Date of Last Bowel Movement 08/15/18 08/16/18 08/16/18 # Incontinent Bowel Movements 3 Narrative: Right lower extremity: Clean dressings intact. Knee immobilizer in place. Short leg splint intact - Urinary Catheter Management Indwelling Urethral Catheter Cath placed during this visit: yes Urethral indwelling: Yes Reason for continuing: Hourly intake/output Insertion date: 08/05/18 Insertion time: 00:00 Results - Labs CBC & Chem 7: 08/16/18 05:34 08/16/18 05:34 Laboratory Results - last 24 hr 08/13/18 08/16/18 08/16/18 05:13 05:34 05:34 WBC 19.0 H RBC 2.97 L Hgb 9.3 L Hct 28.1 L MCV 94.7 MCH 31.2 MCHC 32.9 RDW 17.8 H Plt Count 634 H D MPV 9.5 Prelim Diff (Auto) Slide review pending Neut % (Auto) 79.9 H Lymph % (Auto) 7.6 L [place] % (Auto) 11.4 H Eos % (Auto) 0.7 Baso % (Auto) 0.4 Neut # (Auto) 15.2 H Lymph # (Auto) 1.4 [place] # (Auto) 2.2 H Eos # (Auto) 0.1 Baso # (Auto) 0.1 Differential Comment . Puncture Site Patient Temperature O2 Saturation ABG pH ABG pCO2 ABG pO2 ABG HCO3 ABG O2 Content ABG Base Excess ABG Methemoglobin Bereket Test Hemoglobin Carboxyhemoglobin O2 Delivery Device Vent Setting Inspired O2 Critical Value Sodium 139 Potassium 3.3 L Chloride 103 Carbon Dioxide 26.9 Anion Gap 9 BUN 13 Creatinine 0.53 Estimated GFR Greater than 89 Random Glucose 128 H Calcium 7.8 L Total Bilirubin 0.7 AST 35 ALT 33 Alkaline Phosphatase 183 H Total Protein 6.8 Albumin 2.3 L MTS Gel Crossmatch See Detail 08/16/18 06:05 WBC RBC Hgb Hct MCV MCH MCHC RDW Plt Count MPV Prelim Diff (Auto) Neut % (Auto) Lymph % (Auto) [place] % (Auto) Eos % (Auto) Baso % (Auto) Neut # (Auto) Lymph # (Auto) [place] # (Auto) Eos # (Auto) Baso # (Auto) Differential Comment Puncture Site Right radial Patient Temperature 98.6 O2 Saturation 91 ABG pH 7.52 H* ABG pCO2 32 L ABG pO2 66 ABG HCO3 26 ABG O2 Content 12.0 ABG Base Excess 3.0 H ABG Methemoglobin 1.3 Bereket Test Present Hemoglobin 9.3 L Carboxyhemoglobin 1.5 O2 Delivery Device Ventilator Vent Setting 18/550/it0.9/10peep Inspired O2 60 Critical Value Yes Sodium Potassium Chloride Carbon Dioxide Anion Gap BUN Creatinine Estimated GFR Random Glucose Calcium Total Bilirubin AST ALT Alkaline Phosphatase Total Protein Albumin MTS Gel Crossmatch Microbiology 08/13/18 10:38 Bronchial - Right Lower Lobe Gram Stain - Final 08/13/18 10:38 Bronchial - Right Lower Lobe Bronchial Culture - Final S. aureus MRSA Serratia marcescens 08/12/18 08:03 Blood - Other Aerobic Blood Culture - Preliminary No growth in 3 days 08/12/18 08:03 Blood - Other Anaerobic Blood Culture - Preliminary No growth in 3 days 08/12/18 07:58 Blood - Other Aerobic Blood Culture - Preliminary No growth in 3 days 08/12/18 07:58 Blood - Other Anaerobic Blood Culture - Preliminary No growth in 3 days - Imaging Impressions Foot X-Ray 08/15/18 00:00 CONCLUSION: Fluoroscopic images demonstrates internal fixation with multiple screws and plate and screws along the calcaneus near anatomic alignment. Chest X-Ray 08/16/18 06:00 CONCLUSION: Unchanged exam with bibasilar consolidations and tiny left apical pneumothorax. Assessment and Plan - Assessment and Plan 1) Right Calcaneus Fracture ORIF POD 1 2) Right distal Femur Fracture s/p ORIF - POD 8 3) Left Patella Fracture s/p ORIF - POD 11 Daily dressing changes left knee and right upper leg Xeroform 4 x 4's and Fernando wrap Maintain knee immobilizers and splint Resume Lovenox per trauma service -plan for surgery today with [place] for ORIF of right calcaneus
[2018-08-16 10:34] LABS: Polychromasia 2.2 % (0.0-1.9)
[2018-08-16 10:38] LABS: Platelet Morphology Normal (Normal)
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
[2018-08-16 13:48] LABS: ABG Base Excess 4.7 mmol/L (-2-2); ABG PCO2 33 mmHg (38-42); ABG PO2 65 mmHg (61-120)
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
[2018-08-16] MEDS: Potassium Chloride Liq 20 MEQ/15 ML UDC PO PRN (20:16)
[2018-08-17] MEDS: Oral Hygiene Kit OROPHARYNG SCH ×5 (00:45→23:50)
[2018-08-17 01:07] LABS: Baso # (Auto) 0.1 th/mm3 (0.0-0.2); Baso % (Auto) 0.6 % (0.0-2.0); Eos # (Auto) 0.1 th/mm3 (0.0-0.4); Eos % (Auto) 0.6 % (0.0-4.0); Hematocrit 27.2 % (35.0-46.0); Hemoglobin 8.9 gm/dL (11.6-15.3); Lymph # (Auto) 1.7 th/mm3 (1.0-4.8); Lymph % (Auto) 8.5 % (9.0-44.0); Mean Corpuscular HGB Conc 32.5 % (32.0-36.0); Mean Corpuscular Hemoglobin 31.6 pg (27.0-34.0); Mean Corpuscular Volume 97.1 fL (80.0-100.0); Mean Platelet Volume 8.9 fL (7.0-11.0); Mono # (Auto) 2.1 th/mm3 (0.0-0.9); Mono % (Auto) 10.1 % (0.0-8.0); Neut # (Auto) 16.3 th/mm3 (1.8-7.7); Neut % (Auto) 80.2 % (16.0-70.0); Platelet Count 627 th/mm3 (150-450); Red Blood Count 2.81 mil/mm3 (4.00-5.30); White Blood Count 20.3 th/mm3 (4.0-11.0)
[2018-08-17 01:25] LABS: Alanine Aminotransferase 26 U/L (10-53); Albumin 2.1 g/dL (3.4-5.0); Anion Gap 9 meq/L (5-15); Aspartate Aminotransferase 24 U/L (15-37); Blood Urea Nitrogen 11 mg/dL (7-18); Calcium 7.8 mg/dL (8.5-10.1); Carbon Dioxide 27.9 meq/L (21.0-32.0); Chloride 104 meq/L (98-107); Glomerular Filtration Rate Greater Than 89 mL/min (>89); Glucose,Random 131 mg/dL (74-106); Potassium 3.7 meq/L (3.5-5.1); Sodium 141 meq/L (136-145)
[2018-08-17 01:27] LABS: Alkaline Phosphatase 186 U/L (45-117); Total Protein 6.4 g/dL (6.4-8.2)
[2018-08-17 01:55] LABS: Platelet Morphology Normal (Normal); Stomatocytes 1+
[2018-08-17] MEDS: ceFAZolin 2 GM Premix Inj 2 GM/50 ML PIGGYBACK IV.SIG SCH ×2 (02:13→09:07)
[2018-08-17] MEDS: Vancomycin Inj 1,000 MG in Sodium Chlor 0.9% Inj 250 ML IV.SIG SCH ×2 (04:02→13:00)
[2018-08-17 05:08] LABS: ABG Base Excess 5.1 mmol/L (-2-2); ABG PCO2 39 mmHg (38-42); ABG PO2 81 mmHg (61-120)
--- NOTE | 2018-08-17 05:38 | XR ---
EXAM DATE: 08/17/2018 5:17 AM EST AGE/SEX: 33 years / Female INDICATIONS: Shortness of breath. CLINICAL DATA: This is the patient's subsequent encounter. Patient reports that signs and symptoms h ave been present for 2 weeks and indicates a pain score of Nonresponsive. MEDICAL/SURGICAL HISTORY: . T-spine fracture, Pneumothorax. Chest tube, left. COMPARISON: [facility] [place]ST 1V SINGLE AP, 08/16/2018. . FINDINGS: A single AP view of the chest demonstrates progression in the right lower lobe consolidation. Left ba silar consolidation is unchanged. Questionable tiny right effusion. Tiny left apical pneumothorax is stable. Left thoracostomy tube and tracheostomy tube are noted. Heart is mildly enlarged. CONCLUSION: Progression in the right basilar consolidation with stability of the left basilar consolidation. Stab le tiny left apical pneumothorax. Electronically signed by: Marino Vora MD Board Certified Radiologist 08/17/2018 5:37 AM EST
[2018-08-17] MEDS: Methocarbamol 500 MG Tablet PO SCH ×3 (06:29→21:54)
[2018-08-17] MEDS: Chlorhexidine 0.12% Oral Kit 15 ML UDC OROPHARYNG SCH ×2 (08:13→20:08)
[2018-08-17] MEDS: Lidocaine 5% Patch T-DERMAL SCH (08:13)
[2018-08-17] MEDS: levoFLOXacin 750 MG Tablet PO SCH (08:13)
[2018-08-17] MEDS: [UNRECOGNIZED DRUG - OTHER] LEFT EYE SCH ×2 (08:14→20:08)
[2018-08-17] MEDS: Calcium/Vitamin D 250/125 MG Tablet PO SCH ×3 (08:15→17:23)
[2018-08-17] MEDS: Sodium Chloride 0.9% 2 ML Flush BID IV.FLUSH SCH ×2 (08:15→20:08)
[2018-08-17] MEDS: Famotidine 20 MG Tablet PO SCH ×2 (08:15→20:07)
[2018-08-17] MEDS: Senna/Docusate Sodium 8.6/50 MG Tablet PO SCH ×2 (08:16→20:07)
[2018-08-17] MEDS: QUEtiapine 25 MG Tablet PO SCH ×2 (08:16→20:07)
[2018-08-17] MEDS: [UNRECOGNIZED DRUG - OTHER] LEFT EYE SCH ×4 (08:16→20:08)
[2018-08-17] MEDS: MINERAL OIL LEFT EYE SCH ×4 (08:16→20:08)
[2018-08-17] MEDS: Enoxaparin Inj 30 MG/0.3 ML Syringe SQ SCH ×2 (09:05→21:54)
[2018-08-17] MEDS: Midazolam 100 MG/100 ML Inj 100 MG/100 ML BAG IV.CONT PRN (09:08)
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
[2018-08-17] MEDS ORDERED: Pharmacy Ordered Lab Info OTHER ONE (12:45)
[2018-08-17] MEDS: Vancomycin Inj 1,250 MG in Sodium Chlor 0.9% Inj 250 ML IV.SIG SCH (20:07)
[2018-08-18] MEDS: Vancomycin Inj 1,250 MG in Sodium Chlor 0.9% Inj 250 ML IV.SIG SCH ×3 (04:40→20:49)
[2018-08-18] MEDS: Oral Hygiene Kit OROPHARYNG SCH ×3 (04:40→15:42)
[2018-08-18] MEDS: fentaNYL 10 mcg/mL Premix Drip 2,500 MCG/250 ML BAG IV.SIG PRN (04:41)
[2018-08-18] MEDS: Methocarbamol 500 MG Tablet PO SCH ×3 (06:03→22:37)
[2018-08-18 06:10] LABS: ABG Base Excess 5.5 mmol/L (-2-2); ABG PCO2 36 mmHg (38-42); ABG PO2 74 mmHg (61-120)
[2018-08-18] MEDS: Famotidine 20 MG Tablet PO SCH (08:19)
[2018-08-18] MEDS: Chlorhexidine 0.12% Oral Kit 15 ML UDC OROPHARYNG SCH ×2 (08:19→20:46)
[2018-08-18] MEDS: Lidocaine 5% Patch T-DERMAL SCH (08:20)
[2018-08-18] MEDS: Sodium Chloride 0.9% 2 ML Flush BID IV.FLUSH SCH ×2 (08:20→20:47)
[2018-08-18] MEDS: Senna/Docusate Sodium 8.6/50 MG Tablet PO SCH ×2 (08:20→20:46)
[2018-08-18] MEDS: levoFLOXacin 750 MG Tablet PO SCH (08:20)
[2018-08-18] MEDS: QUEtiapine 25 MG Tablet PO SCH ×2 (08:20→20:47)
[2018-08-18] MEDS: Calcium/Vitamin D 250/125 MG Tablet PO SCH ×3 (08:20→17:37)
[2018-08-18] MEDS: MINERAL OIL LEFT EYE SCH ×4 (08:21→20:48)
[2018-08-18] MEDS: [UNRECOGNIZED DRUG - OTHER] LEFT EYE SCH ×4 (08:21→20:48)
[2018-08-18] MEDS: [UNRECOGNIZED DRUG - OTHER] LEFT EYE SCH ×2 (08:21→20:48)
[2018-08-18 08:37] LABS: Baso # (Auto) 0.1 th/mm3 (0.0-0.2); Baso % (Auto) 0.8 % (0.0-2.0); Eos # (Auto) 0.2 th/mm3 (0.0-0.4); Eos % (Auto) 1.8 % (0.0-4.0); Hematocrit 28.3 % (35.0-46.0); Hemoglobin 9.2 gm/dL (11.6-15.3); Lymph # (Auto) 1.6 th/mm3 (1.0-4.8); Lymph % (Auto) 11.3 % (9.0-44.0); Mean Corpuscular HGB Conc 32.6 % (32.0-36.0); Mean Corpuscular Volume 98.1 fL (80.0-100.0); Mean Platelet Volume 9.4 fL (7.0-11.0); Mono # (Auto) 1.2 th/mm3 (0.0-0.9); Mono % (Auto) 8.4 % (0.0-8.0); Neut # (Auto) 10.9 th/mm3 (1.8-7.7); Neut % (Auto) 77.7 % (16.0-70.0); Platelet Count 649 th/mm3 (150-450); Red Blood Count 2.88 mil/mm3 (4.00-5.30); Red Cell Distribution Width 18.5 % (11.6-17.2); White Blood Count 14.1 th/mm3 (4.0-11.0)
[2018-08-18 08:59] LABS: Anion Gap 9 meq/L (5-15); Blood Urea Nitrogen 8 mg/dL (7-18); Calcium 8.1 mg/dL (8.5-10.1); Carbon Dioxide 27.2 meq/L (21.0-32.0); Chloride 103 meq/L (98-107); Glucose,Random 111 mg/dL (74-106); Potassium 3.4 meq/L (3.5-5.1); Sodium 139 meq/L (136-145)
[2018-08-18 09:08] LABS: Glomerular Filtration Rate Greater Than 89 mL/min (>89)
[2018-08-18] MEDS: Enoxaparin Inj 30 MG/0.3 ML Syringe SQ SCH ×2 (09:27→22:38)
[2018-08-18] MEDS: Potassium Chloride Liq 20 MEQ/15 ML UDC PO PRN (11:02)
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
[2018-08-18] MEDS ORDERED: Pharmacy Ordered Lab Info OTHER ONE (20:45)
[2018-08-19] MEDS: Famotidine 20 MG Tablet PO SCH ×3 (00:57→21:29)
[2018-08-19] MEDS: Oral Hygiene Kit OROPHARYNG SCH ×4 (00:57→15:14)
[2018-08-19 05:22] LABS: Baso # (Auto) 0.1 th/mm3 (0.0-0.2); Baso % (Auto) 0.8 % (0.0-2.0); Eos # (Auto) 0.3 th/mm3 (0.0-0.4); Eos % (Auto) 1.8 % (0.0-4.0); Hematocrit 32.2 % (35.0-46.0); Hemoglobin 10.3 gm/dL (11.6-15.3); Lymph # (Auto) 1.7 th/mm3 (1.0-4.8); Lymph % (Auto) 10.1 % (9.0-44.0); Mean Corpuscular HGB Conc 32.1 % (32.0-36.0); Mean Corpuscular Hemoglobin 31.2 pg (27.0-34.0); Mean Corpuscular Volume 97.3 fL (80.0-100.0); Mean Platelet Volume 9.3 fL (7.0-11.0); Mono # (Auto) 1.3 th/mm3 (0.0-0.9); Mono % (Auto) 7.7 % (0.0-8.0); Neut # (Auto) 13.7 th/mm3 (1.8-7.7); Neut % (Auto) 79.6 % (16.0-70.0); Platelet Count 789 th/mm3 (150-450); Red Blood Count 3.31 mil/mm3 (4.00-5.30); Red Cell Distribution Width 18.9 % (11.6-17.2); White Blood Count 17.2 th/mm3 (4.0-11.0)
[2018-08-19 05:31] LABS: ABG Base Excess 6.9 mmol/L (-2-2); ABG PCO2 42 mmHg (38-42); ABG PO2 96 mmHg (61-120)
[2018-08-19 05:45] LABS: Anion Gap 7 meq/L (5-15); Blood Urea Nitrogen 9 mg/dL (7-18); Calcium 8.1 mg/dL (8.5-10.1); Carbon Dioxide 30.8 meq/L (21.0-32.0); Chloride 103 meq/L (98-107); Glomerular Filtration Rate Greater Than 89 mL/min (>89); Glucose,Random 112 mg/dL (74-106); Potassium 4.1 meq/L (3.5-5.1); Sodium 141 meq/L (136-145)
[2018-08-19 05:46] LABS: Vancomycin,Random 7.9 Comment
[2018-08-19] MEDS: Methocarbamol 500 MG Tablet PO SCH ×3 (05:49→21:29)
--- NOTE | 2018-08-19 06:32 | XR ---
EXAM DATE: 08/19/2018 6:28 AM EST AGE/SEX: 33 years / Female INDICATIONS: Respiratory failure. CLINICAL DATA: This is the patient's subsequent encounter. Patient reports that signs and symptoms h ave been present for 4 - 6 days and indicates a pain score of Nonresponsive. MEDICAL/SURGICAL HISTORY: . T-spine fracture, Pneumothorax. Chest tube, left. COMPARISON: [facility] – [place], CHEST 1V SINGLE AP, 08/17/2018. . FINDINGS: A single AP view of the chest demonstrates bibasilar consolidation greater right lower lobe. Cardiome hernandez. Tracheostomy tube unchanged. Interval development of right apical pneumothorax measuring 18 mm pleural separation. Tiny left apical pneumothorax. Left-sided chest tube again seen. The cardiomedias tinal contours are unremarkable. Osseous structures are intact. CONCLUSION: 1. Interval development of right-sided pneumothorax measuring 18 mm of pleural separation. 2. Tiny stable left apical pneumothorax. 3. Bibasilar consolidation greater right lower lobe. Electronically signed by: Levar Nation MD Board Certified Radiologist 08/19/2018 6:31 AM EST
[2018-08-19 07:50] LABS: Eosinophils 2 % (0-4); Lymphocytes 11 % (9-44); Monocytes 11 % (0-8); Myelocytes 2 % (0-0)
[2018-08-19 07:51] LABS: Platelet Morphology Normal (Normal)
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
[2018-08-19] MEDS: Lidocaine 5% Patch T-DERMAL SCH (08:06)
[2018-08-19] MEDS: Chlorhexidine 0.12% Oral Kit 15 ML UDC OROPHARYNG SCH ×2 (08:06→21:30)
[2018-08-19] MEDS: levoFLOXacin 750 MG Tablet PO SCH (08:06)
[2018-08-19] MEDS: MINERAL OIL LEFT EYE SCH ×4 (08:07→21:30)
[2018-08-19] MEDS: [UNRECOGNIZED DRUG - OTHER] LEFT EYE SCH ×2 (08:07→21:30)
[2018-08-19] MEDS: [UNRECOGNIZED DRUG - OTHER] LEFT EYE SCH ×4 (08:07→21:30)
[2018-08-19] MEDS: Sodium Chloride 0.9% 2 ML Flush BID IV.FLUSH SCH ×2 (08:08→21:30)
[2018-08-19] MEDS: Calcium/Vitamin D 250/125 MG Tablet PO SCH ×3 (08:08→17:01)
[2018-08-19] MEDS: Senna/Docusate Sodium 8.6/50 MG Tablet PO SCH ×2 (08:08→21:30)
[2018-08-19] MEDS: QUEtiapine 25 MG Tablet PO SCH ×3 (08:09→17:01)
[2018-08-19] MEDS: fentaNYL 10 mcg/mL Premix Drip 2,500 MCG/250 ML BAG IV.SIG PRN (10:06)
[2018-08-19] MEDS: Enoxaparin Inj 30 MG/0.3 ML Syringe SQ SCH ×2 (10:06→21:28)
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
[2018-08-19] MEDS: Vancomycin Inj 1,000 MG in Sodium Chlor 0.9% Inj 250 ML IV.SIG SCH (17:00)
[2018-08-20] MEDS: Oral Hygiene Kit OROPHARYNG SCH ×4 (00:56→16:16)
[2018-08-20] MEDS: Vancomycin Inj 1,000 MG in Sodium Chlor 0.9% Inj 250 ML IV.SIG SCH ×3 (00:56→16:30)
[2018-08-20] MEDS: QUEtiapine 25 MG Tablet PO SCH ×3 (02:23→17:39)
--- NOTE | 2018-08-20 04:32 | XR ---
EXAM DATE: 08/20/2018 4:08 AM EST AGE/SEX: 33 years / Female INDICATIONS: Pneumothorax. CLINICAL DATA: This is the patient's subsequent encounter. Patient reports that signs and symptoms h ave been present for 4 - 6 days and indicates a pain score of Nonresponsive. MEDICAL/SURGICAL HISTORY: . T-spine fracture, Pneumothorax. Chest tube, left. COMPARISON: [facility] [place], CHEST 1V SINGLE AP, 08/19/2018. [facility] [place], CHEST 1V SINGLE AP, 08/17/2018. . FINDINGS: A single AP view of the chest demonstrates right-sided pneumothorax measuring 1.9 cm of pleural separ ation. Bibasilar densities. Left-sided chest tube. Tiny left apical pneumothorax. Tracheostomy tube u nchanged. The cardiomediastinal contours are unremarkable. Osseous structures are intact. CONCLUSION: 1. Right-sided pneumothorax is not significantly changed. 2. Tiny left apical pneumothorax is unchanged. Electronically signed by: Levar Nation MD Board Certified Radiologist 08/20/2018 4:30 AM EST
[2018-08-20] MEDS: Methocarbamol 500 MG Tablet PO SCH ×3 (05:55→20:59)
[2018-08-20 06:05] LABS: Baso # (Auto) 0.1 th/mm3 (0.0-0.2); Baso % (Auto) 0.8 % (0.0-2.0); Eos # (Auto) 0.2 th/mm3 (0.0-0.4); Eos % (Auto) 1.3 % (0.0-4.0); Hematocrit 30.4 % (35.0-46.0); Lymph # (Auto) 1.3 th/mm3 (1.0-4.8); Lymph % (Auto) 7.6 % (9.0-44.0); Mean Corpuscular HGB Conc 32.8 % (32.0-36.0); Mean Corpuscular Hemoglobin 32.3 pg (27.0-34.0); Mean Corpuscular Volume 98.4 fL (80.0-100.0); Mean Platelet Volume 8.9 fL (7.0-11.0); Mono % (Auto) 6.1 % (0.0-8.0); Neut # (Auto) 14.2 th/mm3 (1.8-7.7); Neut % (Auto) 84.2 % (16.0-70.0); Platelet Count 713 th/mm3 (150-450); Red Blood Count 3.09 mil/mm3 (4.00-5.30); White Blood Count 16.8 th/mm3 (4.0-11.0)
[2018-08-20 06:38] LABS: Anion Gap 8 meq/L (5-15); Calcium 8.1 mg/dL (8.5-10.1); Carbon Dioxide 29.4 meq/L (21.0-32.0); Chloride 103 meq/L (98-107); Glomerular Filtration Rate Greater Than 89 mL/min (>89); Glucose,Random 146 mg/dL (74-106); Potassium 4.1 meq/L (3.5-5.1); Sodium 140 meq/L (136-145)
[2018-08-20 06:43] LABS: Blood Urea Nitrogen 13 mg/dL (7-18)
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
[2018-08-20] MEDS: Lidocaine 5% Patch T-DERMAL SCH (08:46)
[2018-08-20] MEDS: Chlorhexidine 0.12% Oral Kit 15 ML UDC OROPHARYNG SCH ×2 (08:46→21:00)
[2018-08-20] MEDS: Famotidine 20 MG Tablet PO SCH ×2 (08:47→20:59)
[2018-08-20] MEDS: levoFLOXacin 750 MG Tablet PO SCH (08:47)
[2018-08-20] MEDS: Senna/Docusate Sodium 8.6/50 MG Tablet PO SCH ×2 (08:47→21:00)
[2018-08-20] MEDS: Calcium/Vitamin D 250/125 MG Tablet PO SCH ×3 (08:47→17:38)
[2018-08-20] MEDS: [UNRECOGNIZED DRUG - OTHER] LEFT EYE SCH ×4 (08:48→21:02)
[2018-08-20] MEDS: [UNRECOGNIZED DRUG - OTHER] LEFT EYE SCH ×2 (08:48→21:02)
[2018-08-20] MEDS: Sodium Chloride 0.9% 2 ML Flush BID IV.FLUSH SCH ×2 (08:48→21:01)
[2018-08-20] MEDS: MINERAL OIL LEFT EYE SCH ×4 (08:48→21:02)
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
[2018-08-20] MEDS: Enoxaparin Inj 30 MG/0.3 ML Syringe SQ SCH ×2 (10:02→21:00)
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
[2018-08-20] MEDS ORDERED: Pharmacy Ordered Lab Info OTHER ONE (15:45)
[2018-08-21] MEDS: QUEtiapine 25 MG Tablet PO SCH ×3 (01:21→16:02)
[2018-08-21] MEDS: Oral Hygiene Kit OROPHARYNG SCH ×4 (01:22→16:02)
[2018-08-21] MEDS: Vancomycin Inj 1,000 MG in Sodium Chlor 0.9% Inj 250 ML IV.SIG SCH ×3 (01:22→17:08)
--- NOTE | 2018-08-21 04:22 | XR ---
EXAM DATE: 08/21/2018 4:17 AM EST AGE/SEX: 33 years / Female INDICATIONS: PTX. CLINICAL DATA: This is the patient's subsequent encounter. Patient reports that signs and symptoms h ave been present for 4 - 6 days and indicates a pain score of Nonresponsive. MEDICAL/SURGICAL HISTORY: . T-spine fracture, Pneumothorax. . Chest tube, left. COMPARISON: [facility] [place], CHEST 1V SINGLE AP, 08/20/2018. . FINDINGS: A single AP view of the chest demonstrates decreasing in size right pneumothorax. Left-sided chest tu be with tiny left apical pneumothorax. Tracheostomy tube unchanged. Bibasilar densities. Heart normal in size. The cardiomediastinal contours are unremarkable. Osseous structures are intact. CONCLUSION: Decreasing right pneumothorax. Electronically signed by: Levar Nation MD Board Certified Radiologist 08/21/2018 4:21 AM EST
[2018-08-21 05:40] LABS: ABG PCO2 51 mmHg (38-42); ABG PO2 73 mmHg (61-120)
[2018-08-21] MEDS: fentaNYL 10 mcg/mL Premix Drip 2,500 MCG/250 ML BAG IV.SIG PRN (05:40)
[2018-08-21] MEDS: Methocarbamol 500 MG Tablet PO SCH ×3 (05:41→21:14)
[2018-08-21 05:58] LABS: Baso # (Auto) 0.1 th/mm3 (0.0-0.2); Baso % (Auto) 0.6 % (0.0-2.0); Eos # (Auto) 0.3 th/mm3 (0.0-0.4); Eos % (Auto) 1.5 % (0.0-4.0); Hematocrit 32.2 % (35.0-46.0); Hemoglobin 10.4 gm/dL (11.6-15.3); Lymph # (Auto) 1.3 th/mm3 (1.0-4.8); Lymph % (Auto) 7.6 % (9.0-44.0); Mean Corpuscular HGB Conc 32.2 % (32.0-36.0); Mean Corpuscular Hemoglobin 31.3 pg (27.0-34.0); Mono # (Auto) 1.4 th/mm3 (0.0-0.9); Mono % (Auto) 8.1 % (0.0-8.0); Neut % (Auto) 82.2 % (16.0-70.0); Platelet Count 677 th/mm3 (150-450); Red Blood Count 3.32 mil/mm3 (4.00-5.30); Red Cell Distribution Width 18.4 % (11.6-17.2)
[2018-08-21 06:18] LABS: Anion Gap 7 meq/L (5-15); Blood Urea Nitrogen 13 mg/dL (7-18); Calcium 8.2 mg/dL (8.5-10.1); Chloride 102 meq/L (98-107); Glomerular Filtration Rate Greater Than 89 mL/min (>89); Glucose,Random 110 mg/dL (74-106); Sodium 139 meq/L (136-145)
[2018-08-21] MEDS ORDERED: Haloperidol Inj 5 MG/ML Ampul IM ONE (07:56)
[2018-08-21] MEDS ORDERED: Ketorolac Inj 30 MG/ML (IVP) Vial IV.PUSH ONE (07:57)
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
[2018-08-21] MEDS: levoFLOXacin 750 MG Tablet PO SCH (08:40)
[2018-08-21] MEDS: Senna/Docusate Sodium 8.6/50 MG Tablet PO SCH ×2 (08:40→21:15)
[2018-08-21] MEDS: Famotidine 20 MG Tablet PO SCH ×2 (08:40→21:14)
[2018-08-21] MEDS: Calcium/Vitamin D 250/125 MG Tablet PO SCH ×3 (08:40→17:59)
[2018-08-21] MEDS: Lidocaine 5% Patch T-DERMAL SCH (08:40)
[2018-08-21] MEDS: Sodium Chloride 0.9% 2 ML Flush BID IV.FLUSH SCH ×2 (08:41→21:15)
[2018-08-21] MEDS: [UNRECOGNIZED DRUG - OTHER] LEFT EYE SCH ×4 (08:41→21:15)
[2018-08-21] MEDS: [UNRECOGNIZED DRUG - OTHER] LEFT EYE SCH ×2 (08:41→21:15)
[2018-08-21] MEDS: MINERAL OIL LEFT EYE SCH ×4 (08:41→21:15)
[2018-08-21] MEDS: Chlorhexidine 0.12% Oral Kit 15 ML UDC OROPHARYNG SCH ×2 (08:42→21:16)
[2018-08-21] MEDS: Enoxaparin Inj 30 MG/0.3 ML Syringe SQ SCH ×2 (09:14→21:14)
[2018-08-21] MEDS: Dexmedetomidine Inj 200 MCG in Sodium Chlor 0.9% Inj 48 ML IV.CONT PRN ×3 (10:20→21:10)
[2018-08-21] MEDS: Propranolol 10 MG Tablet PO SCH ×2 (10:21→17:08)
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
[2018-08-21] MEDS ORDERED: Pharmacy Ordered Lab Info OTHER ONE (15:45)
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
[2018-08-22] MEDS: Dexmedetomidine Inj 200 MCG in Sodium Chlor 0.9% Inj 48 ML IV.CONT PRN ×4 (00:52→11:14)
[2018-08-22] MEDS: Vancomycin Inj 1,000 MG in Sodium Chlor 0.9% Inj 250 ML IV.SIG SCH ×3 (00:53→11:13)
[2018-08-22] MEDS: Oral Hygiene Kit OROPHARYNG SCH ×3 (00:54→11:13)
[2018-08-22] MEDS: QUEtiapine 25 MG Tablet PO SCH ×2 (00:54→09:31)
[2018-08-22] MEDS: Propranolol 10 MG Tablet PO SCH ×2 (00:59→11:13)
[2018-08-22] MEDS ORDERED: Midazolam Inj 5 MG/ML 1 ML Vial ONE ×2 (02:36→11:22)
[2018-08-22] MEDS ORDERED: Midazolam Inj 5 MG/ML 1 ML Vial IV.PUSH ONE (02:36)
--- NOTE | 2018-08-22 03:43 | P.PCN ---
Date of procedure: 08/22/18 Procedure: Endotracheal Intubation Diagnosis: Acute hypoxemia Indications: In brief this is a 33-year-old female with a fresh tracheostomy who had acute hypoxemia. I was called to the bedside. SPO2 was in the 30s. Given the severity of the hypoxemia and the fact that she is cyanotic and near cardiac arrest, decision was made to intubate emergently from the oral route, as this is a fresh tracheostomy and I cannot confirm that it is in the lumen of the trachea. Consent: Emergent Anesthesia: No anesthesia was required Description of the Procedure: The patient was positioned in the sniffing position. The patient was actively being bag mask ventilated through the tracheostomy. A Burris #2 was used for laryngoscopy and a Grade I view was obtained. A 7.5 cuffed endotracheal tube was inserted atraumatically through the vocal cords. At this point, the tracheostomy was removed. Confirmation of correct endotracheal tube placement was made by equal and bilateral breath sounds and colorimetric CO2 detection. The endotracheal tube was secured at 22 cm at the teeth. There were no immediate complications noted. A chest x-ray has been ordered. I personally performed the procedure.
--- NOTE | 2018-08-22 03:46 | P.PCN ---
Date of procedure: 08/22/18 Procedure: Procedure: Therapeutic fiberoptic Bronchoscopy Diagnosis: Acute hypoxemia Indications: Immediately after reintubation via the oral route, performed bronchoscopy due to significant mucus plugging disease. Consent: Emergent Anesthesia: Versed 5 mg IV, rocuronium 50 mg IV Description of the Procedure: The patient was sedated and mechanically ventilated. The patient was placed on 100% FIO2 and a volume control mode of ventilation. The fiberoptic bronchoscopy was inserted via 7.5 oral endotracheal tube. The trachea, right and left mainstem bronchi, and sub- segmental bronchi were evaluated. The endobronchial anatomy was normal. Findings: There were multiple thick large secretions which were plugging all airways both right and left mainstem airways. These were unable to be suctioned as they were very thick, tenacious, very hard. They were removed gently with use of the suction port on the bronchoscope, and many of them had to be manually removed through the residual open stoma of the tracheostomy. At this point, the main airways were aggressively suctioned until clear. After this procedure, the SPO2 improved to 95% from its baseline of 61%. BAL samples: No samples were sent There were no immediate complications noted. At the conclusion of the procedure, the patient was placed back on their pre-procedure ventilatory settings. There was minimal EBL. A chest x-ray has been ordered. I personally performed the procedure.
--- NOTE | 2018-08-22 04:40 | XR ---
EXAM DATE: 08/22/2018 4:30 AM EST AGE/SEX: 33 years / Female INDICATIONS: Post intubation. CLINICAL DATA: This is the patient's subsequent encounter. Patient reports that signs and symptoms h ave been present for 4 - 6 days and indicates a pain score of Nonresponsive. MEDICAL/SURGICAL HISTORY: . T-spine fracture, Pneumothorax. Chest tube, left. COMPARISON: [facility], CHEST 1V SINGLE AP, 08/21/2018. . FINDINGS: Endotracheal tube in good position. Left chest tube with stable tiny left apical pneumothorax. Slight increase in basilar airspace disease since August 14, 2016. No significant effusion. Multiple righ t rib fractures. CONCLUSION: Left chest tube with stable tiny left apical pneumothorax. Increase in basilar airspace disease since August 21, 2018 . Electronically signed by: Christiano Mujica MD Board Certified Radiologist 08/22/2018 4:39 AM EST
[2018-08-22 04:50] LABS: Baso # (Auto) 0.1 th/mm3 (0.0-0.2); Baso % (Auto) 0.5 % (0.0-2.0); Eos # (Auto) 0.2 th/mm3 (0.0-0.4); Eos % (Auto) 1.1 % (0.0-4.0); Hematocrit 32.2 % (35.0-46.0); Hemoglobin 10.3 gm/dL (11.6-15.3); Lymph # (Auto) 0.7 th/mm3 (1.0-4.8); Lymph % (Auto) 3.4 % (9.0-44.0); Mean Corpuscular HGB Conc 32.1 % (32.0-36.0); Mean Corpuscular Hemoglobin 31.7 pg (27.0-34.0); Mean Corpuscular Volume 98.8 fL (80.0-100.0); Mean Platelet Volume 8.2 fL (7.0-11.0); Mono # (Auto) 1.4 th/mm3 (0.0-0.9); Mono % (Auto) 6.4 % (0.0-8.0); Neut # (Auto) 19.1 th/mm3 (1.8-7.7); Neut % (Auto) 88.6 % (16.0-70.0); Platelet Count 600 th/mm3 (150-450); Red Blood Count 3.26 mil/mm3 (4.00-5.30); Red Cell Distribution Width 18.2 % (11.6-17.2); White Blood Count 21.5 th/mm3 (4.0-11.0)
[2018-08-22 05:08] LABS: Alanine Aminotransferase 26 U/L (10-53); Albumin 2.4 g/dL (3.4-5.0); Anion Gap 6 meq/L (5-15); Aspartate Aminotransferase 23 U/L (15-37); Blood Urea Nitrogen 16 mg/dL (7-18); Calcium 7.7 mg/dL (8.5-10.1); Carbon Dioxide 31.5 meq/L (21.0-32.0); Chloride 103 meq/L (98-107); Glomerular Filtration Rate Greater Than 89 mL/min (>89); Glucose,Random 117 mg/dL (74-106); Potassium 4.2 meq/L (3.5-5.1); Sodium 140 meq/L (136-145)
[2018-08-22 05:11] LABS: Alkaline Phosphatase 351 U/L (45-117); Total Protein 6.9 g/dL (6.4-8.2)
[2018-08-22 05:30] LABS: ABG Base Excess 6.2 mmol/L (-2-2); ABG PCO2 40 mmHg (38-42); ABG PO2 130 mmHg (61-120)
[2018-08-22] MEDS: Methocarbamol 500 MG Tablet PO SCH (06:46)
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
--- NOTE | 2018-08-22 08:10 | P.PNOP ---
Subjective Interval history: Patient was intubated last night due to failure of trach. Physical Exam Vital signs: Vital Signs 08/21/18 08:12 08/21/18 08:58 08/21/18 09:00 Temperature Pulse Rate 98 H 106 H Respiratory Rate 35 H 36 H 32 H Blood Pressure 157/101 H Pulse Oximetry 97 100 100 08/21/18 09:58 08/21/18 10:00 08/21/18 11:00 Temperature Pulse Rate 114 H 116 H 75 Respiratory Rate 30 H 33 H 20 Blood Pressure 166/95 H 114/70 Pulse Oximetry 100 100 100 08/21/18 11:58 08/21/18 12:00 08/21/18 12:48 Temperature 98.5 F Pulse Rate 75 78 Respiratory Rate 23 18 18 Blood Pressure 112/62 Pulse Oximetry 100 100 100 08/21/18 12:58 08/21/18 13:00 08/21/18 13:58 Temperature Pulse Rate 77 76 Respiratory Rate 17 18 Blood Pressure 120/62 115/67 Pulse Oximetry 99 98 08/21/18 15:00 08/21/18 15:04 08/21/18 16:04 Temperature Pulse Rate 94 H 82 Respiratory Rate 39 H 31 H 42 H Blood Pressure 154/89 H 150/100 H Pulse Oximetry 99 100 81 L 08/21/18 16:58 08/21/18 17:58 08/21/18 18:58 Temperature Pulse Rate 99 H 92 H 68 Respiratory Rate 36 H 27 H 25 H Blood Pressure 154/101 H 163/100 H 102/58 L Pulse Oximetry 100 100 100 08/21/18 19:00 08/21/18 19:35 08/21/18 19:58 Temperature Pulse Rate 66 64 Respiratory Rate 26 H 19 26 H Blood Pressure 107/57 L Pulse Oximetry 100 100 100 08/21/18 20:00 08/21/18 20:58 08/21/18 21:00 Temperature 97.8 F Pulse Rate 63 80 83 Respiratory Rate 26 H 31 H 34 H Blood Pressure 107/57 L 122/78 Pulse Oximetry 100 100 78 L 08/21/18 22:00 08/21/18 22:19 08/21/18 22:44 Temperature Pulse Rate 100 H 94 H 89 Respiratory Rate 32 H 30 H 28 H Blood Pressure 149/97 H Pulse Oximetry 100 100 08/21/18 22:46 08/21/18 22:58 08/21/18 23:00 Temperature Pulse Rate 92 H 93 H Respiratory Rate 31 H 27 H 29 H Blood Pressure 134/82 Pulse Oximetry 100 100 99 08/21/18 23:58 08/22/18 00:00 08/22/18 00:58 Temperature 98.7 F Pulse Rate 97 H 100 H 97 H Respiratory Rate 28 H 26 H 25 H Blood Pressure 143/82 H 141/93 H 141/93 H Pulse Oximetry 99 99 99 08/22/18 01:00 08/22/18 01:58 08/22/18 02:00 Temperature Pulse Rate 94 H 80 69 Respiratory Rate 24 25 H 35 H Blood Pressure 149/81 H Pulse Oximetry 99 99 99 08/22/18 02:58 08/22/18 03:00 08/22/18 03:39 Temperature Pulse Rate 105 H 117 H Respiratory Rate 39 H 18 24 Blood Pressure 141/81 H Pulse Oximetry 100 100 100 08/22/18 03:58 08/22/18 04:00 08/22/18 04:58 Temperature 98.5 F Pulse Rate 86 80 88 Respiratory Rate 18 18 18 Blood Pressure 106/57 L 106/57 L 101/66 Pulse Oximetry 100 100 100 08/22/18 05:00 08/22/18 05:58 08/22/18 06:00 Temperature Pulse Rate 86 75 67 Respiratory Rate 22 25 H 21 Blood Pressure 93/50 L Pulse Oximetry 100 97 100 08/22/18 06:37 08/22/18 07:31 Temperature Pulse Rate 69 Respiratory Rate 25 H 23 Blood Pressure 101/59 L Pulse Oximetry 100 100 Intake & Output 08/21/18 08/22/18 08/22/18 18:59 06:59 18:59 Intake Total 1297.3 / 1297.3 1330 / 1330 50 / 50 Output Total 0 / 0 Balance 1297.3 / 1297.3 1330 / 1330 50 / 50 Weight 52.2 kg Intake: IV 897.3 / 897.3 350 / 350 50 / 50 Precedex Inj 200 MCG In NS Inj 65.3 / 65.3 100 / 100 50 / 50 48 ML @ 0.2 MCG/KG/HR 2.55 mls/ hr IV.CONT TITRATE PRN Rx#: [id number] Ofirmev Inj 1,000 mg In 100 ml 200 / 200 @ 400 mls/hr IV.SIG Q6H PRN Rx# :[id number] Vancomycin Inj 1,000 MG In NS 500 / 500 250 / 250 Inj 250 ML @ 250 mls/hr IV.SIG Q6H MAEVE Rx#:[id number] fentaNYL 10 mcg/mL Premix Drip 132 / 132 2,500 mcg In 250 ml @ 50 MCG/HR 5 mls/hr IV.SIG TITRATE PRN Rx #:[id number] Tube Feeding 520 / 520 Water Bolus Amount 260 / 260 Free Water Amount 400 / 400 200 / 200 Output: Chest Tube Drainage 0 / 0 Left Upper 0 / 0 Other: # Incontinent Voids 4 4 Date of Last Bowel Movement 08/21/18 08/22/18 # Bowel Movements 1 1 # Incontinent Bowel Movements 1 Narrative: Left lower extremity: Knee immobilizer in place. Clean dry dressings intact. Intact distal pulses and good capillary refills. Right lower extremity: Clean dry dressings intact. Ankle splint in place. Capillary refills. - Urinary Catheter Management Female External Cath placed during this visit: no Reason for continuing: Not indwelling catheter Indwelling Urethral Catheter Cath placed during this visit: yes, but has since been removed by the nurse Urethral indwelling: Yes Reason for continuing: Hourly intake/output Insertion date: 08/05/18 Insertion time: 00:00 Removal date: 08/17/18 Removal time: 04:00 Results - Labs CBC & Chem 7: 08/22/18 04:33 08/22/18 04:33 Laboratory Results - last 24 hr 08/21/18 08/22/18 08/22/18 17:20 04:33 04:33 WBC 21.5 H RBC 3.26 L Hgb 10.3 L Hct 32.2 L MCV 98.8 MCH 31.7 MCHC 32.1 RDW 18.2 H Plt Count 600 H MPV 8.2 Neut % (Auto) 88.6 H Lymph % (Auto) 3.4 L [place] % (Auto) 6.4 Eos % (Auto) 1.1 Baso % (Auto) 0.5 Neut # (Auto) 19.1 H Lymph # (Auto) 0.7 L [place] # (Auto) 1.4 H Eos # (Auto) 0.2 Baso # (Auto) 0.1 WBC Differential . Differential Comment Auto diff final Puncture Site Patient Temperature O2 Saturation ABG pH ABG pCO2 ABG pO2 ABG HCO3 ABG O2 Content ABG Base Excess ABG Methemoglobin Bereket Test Hemoglobin Carboxyhemoglobin O2 Delivery Device Vent Setting Inspired O2 Critical Value Sodium 140 Potassium 4.2 Chloride 103 Carbon Dioxide 31.5 Anion Gap 6 BUN 16 Creatinine 0.43 L Estimated GFR Greater than 89 Random Glucose 117 H Calcium 7.7 L Total Bilirubin 0.4 AST 23 ALT 26 Alkaline Phosphatase 351 H Total Protein 6.9 Albumin 2.4 L Vancomycin Trough 6.6 08/22/18 05:25 WBC RBC Hgb Hct MCV MCH MCHC RDW Plt Count MPV Neut % (Auto) Lymph % (Auto) [place] % (Auto) Eos % (Auto) Baso % (Auto) Neut # (Auto) Lymph # (Auto) [place] # (Auto) Eos # (Auto) Baso # (Auto) WBC Differential Differential Comment Puncture Site Left radial Patient Temperature 98.6 O2 Saturation 96 ABG pH 7.48 H ABG pCO2 40 ABG pO2 130 H ABG HCO3 30 H ABG O2 Content 13.5 ABG Base Excess 6.2 H ABG Methemoglobin 1.1 Bereket Test Present Hemoglobin 9.8 L Carboxyhemoglobin 1.9 O2 Delivery Device Ventilator Vent Setting Prvc /ac Inspired O2 100 Critical Value No Sodium Potassium Chloride Carbon Dioxide Anion Gap BUN Creatinine Estimated GFR Random Glucose Calcium Total Bilirubin AST ALT Alkaline Phosphatase Total Protein Albumin Vancomycin Trough - Imaging Impressions Chest X-Ray 08/22/18 06:00 CONCLUSION: Left chest tube with stable tiny left apical pneumothorax. Increase in basilar airspace disease since August 21, 2018 . Assessment and Plan - Assessment and Plan 1) Right Calcaneus Fracture ORIF POD 7 2) Right distal Femur Fracture s/p ORIF - POD 14 3) Left Patella Fracture s/p ORIF - POD 17 Daily dressing changes left knee and right upper leg Xeroform and [place] Maintain knee immobilizers and splint Resume Lovenox per trauma service ortho surgeries complete will order new xrays of right femur and left knee today plan for D/C of roby from right femur and sutures from left knee before gets discharged [facility] will need to follow up with [facility] or [facility] in 2 weeks
[2018-08-22] MEDS: [UNRECOGNIZED DRUG - OTHER] LEFT EYE SCH (09:11)
[2018-08-22] MEDS: [UNRECOGNIZED DRUG - OTHER] LEFT EYE SCH (09:11)
[2018-08-22] MEDS: MINERAL OIL LEFT EYE SCH (09:11)
[2018-08-22] MEDS: Chlorhexidine 0.12% Oral Kit 15 ML UDC OROPHARYNG SCH (09:11)
[2018-08-22] MEDS: Lidocaine 5% Patch T-DERMAL SCH (09:30)
[2018-08-22] MEDS: Sodium Chloride 0.9% 2 ML Flush BID IV.FLUSH SCH (09:30)
[2018-08-22] MEDS: levoFLOXacin 750 MG Tablet PO SCH (09:30)
[2018-08-22] MEDS: Senna/Docusate Sodium 8.6/50 MG Tablet PO SCH (09:31)
[2018-08-22] MEDS: Enoxaparin Inj 30 MG/0.3 ML Syringe SQ SCH (09:31)
[2018-08-22] MEDS: Calcium/Vitamin D 250/125 MG Tablet PO SCH (09:31)
[2018-08-22] MEDS: Famotidine 20 MG Tablet PO SCH (09:31)
[2018-08-22 09:58] VITALS: TEMP 99.5
[2018-08-22 11:09] VITALS: BP 99/57; PULSE 68
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
--- NOTE | 2018-08-22 12:23 | P.PCN ---
Date of procedure: 08/22/18 Pre-op diagnosis: Respiratory failure Post-op diagnosis: same Procedure: Bronchoscopy The bronchoscope was advanced through the tracheostomy into edward, which was sharp. Then advanced into the left main stem and each segment, subsegement in the left upper lingula and lower lobe was visualized. There was mild tracheobronchitis with mild friability throughout. There was a large amounts of white thick secretion. There were no other findings including evidence of mass, anatomic distortions, or hemorrhage. The right upper lobe anatomy showed some segmental distortion with dilation and irregularities both at the apical region as well as in the subsegments of the anteroapical and posterior segments. No specific masses or other lesions were identified throughout the tracheobronchial tree on the right. There was mild tracheal bronchitis with friability. The bronchoscope was then advanced into the apical segment of the right upper lobe and the bronchioalveolar lavage again performed. No samples were taken and the bronchoscope was removed suctioned the area clear. The bronchoscope was then withdrawn. The patient tolerated the procedure well without evidence of desaturation or complications.
[2018-08-22 12:58] VITALS: RESP 32; O2SAT 92
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
--- NOTE | 2018-08-22 14:51 | P.DS ---
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 1 # Incontinent Bowel Movements 1 Results Procedures completed during hospitalization: . Labs on day of discharge: Labs from last 24 hours 08/22/18 08/22/18 08/22/18 05:25 04:33 04:33 WBC 21.5 H RBC 3.26 L Hgb 10.3 L Hct 32.2 L MCV 98.8 MCH 31.7 MCHC 32.1 RDW 18.2 H Plt Count 600 H MPV 8.2 Neut % (Auto) 88.6 H Lymph % (Auto) 3.4 L [place] % (Auto) 6.4 Eos % (Auto) 1.1 Baso % (Auto) 0.5 Neut # (Auto) 19.1 H Lymph # (Auto) 0.7 L [place] # (Auto) 1.4 H Eos # (Auto) 0.2 Baso # (Auto) 0.1 WBC Differential . Differential Comment Auto diff final Puncture Site Left radial Patient Temperature 98.6 O2 Saturation 96 ABG pH 7.48 H ABG pCO2 40 ABG pO2 130 H ABG HCO3 30 H ABG O2 Content 13.5 ABG Base Excess 6.2 H ABG Methemoglobin 1.1 Bereket Test Present Hemoglobin 9.8 L Carboxyhemoglobin 1.9 O2 Delivery Device Ventilator Vent Setting Prvc /ac Inspired O2 100 Critical Value No Sodium 140 Potassium 4.2 Chloride 103 Carbon Dioxide 31.5 Anion Gap 6 BUN 16 Creatinine 0.43 L Estimated GFR Greater than 89 Random Glucose 117 H Calcium 7.7 L Total Bilirubin 0.4 AST 23 ALT 26 Alkaline Phosphatase 351 H Total Protein 6.9 Albumin 2.4 L Vancomycin Trough 08/21/18 17:20 WBC RBC Hgb Hct MCV MCH MCHC RDW Plt Count MPV Neut % (Auto) Lymph % (Auto) [place] % (Auto) Eos % (Auto) Baso % (Auto) Neut # (Auto) Lymph # (Auto) [place] # (Auto) Eos # (Auto) Baso # (Auto) WBC Differential Differential Comment Puncture Site Patient Temperature O2 Saturation ABG pH ABG pCO2 ABG pO2 ABG HCO3 ABG O2 Content ABG Base Excess ABG Methemoglobin Bereket Test Hemoglobin Carboxyhemoglobin O2 Delivery Device Vent Setting Inspired O2 Critical Value Sodium Potassium Chloride Carbon Dioxide Anion Gap BUN Creatinine Estimated GFR Random Glucose Calcium Total Bilirubin AST ALT Alkaline Phosphatase Total Protein Albumin Vancomycin Trough 6.6 - Impressions ITS Impressions Pelvis X-Ray 08/04/18 21:47 CONCLUSION: Negative examination. Abdomen/Pelvis CT 08/04/18 21:51 CONCLUSION: 1. Large paracoronal laceration without any definite active extravasation within the liver. 2. Large bilateral pneumothoraces left greater than right. 3. Tiny focal area of possible acute hemorrhage with a 2 mm focal area of increased density between the head of the pancreas and the third portion of the duodenum. Cervical Spine CT 08/04/18 21:51 CONCLUSION: 1. Unusual fracture of the T1 vertebral body with anterior displacement of the anterior vertebral body margin. I suspect there is an oblique fracture involving the anterior-inferior endplate of T2 as well. Cervical spine is unremarkable. Chest CT 08/04/18 21:51 CONCLUSION: 1. Fracture along the anterior margin of T1 with significant surrounding hemorrhage. 2. Large left-sided pneumothorax. Extensive air throughout the right chest wall. Multiple right-sided rib fractures with some hemorrhage around the liver. No liver laceration. 3. Left scapular fracture Face CT 08/04/18 21:51 CONCLUSION: 1. Small fracture off the anterolateral margin of left maxilla. 2. Some air along the mandible but I don't see discrete mandible fracture. Lumbar Spine CT 08/04/18 21:51 CONCLUSION: 1. No lumbar spine fracture is identified Thoracic Spine CT 08/04/18 21:51 CONCLUSION: 1. Fractures of the T1 and T2 vertebral bodies. The anterior endplate of T1 is flipped anteriorly with a significant amount of surrounding hematoma. Head CT 08/05/18 05:00 CONCLUSION: Evolving subarachnoid hemorrhage. Minimal layering hemorrhage now evident in the ventricular system. . Head CTA 08/05/18 05:00 CONCLUSION: 1. No acute [place] vascular findings. 2. Apparent continued increase in size of mediastinal hematoma with findings suspicious for potential ongoing bleeding in the AP window region. CTA examination of the chest is suggested for more definitive evaluation for potential thoracic aortic or other arterial injury in the chest 3. Finding and recommendation discussed with Dr. Andres upon interpretation . Neck CTA 08/05/18 05:00 CONCLUSION: Negative CTA Carotid. Lumbar Spine MRI 08/05/18 08:34 CONCLUSION: 1. Negative MRI of the lumbar spine for acute traumatic injury. Thoracic Spine MRI 08/05/18 08:34 CONCLUSION: 1. Fracture of the anterior-inferior corner of T1 images and superior endplate of T2 consistent with a hyperextension injury. The signal intensity in the cord is normal. Trace pleural effusion is seen bilaterally worse on the right than the left. Chest CTA 08/06/18 00:00 CONCLUSION: 1. Bibasilar consolidation. 2. Small bilateral pneumothoraces. 3. No definite pulmonary embolism. Ankle CT 08/08/18 00:00 CONCLUSION: 1. Numerous comminuted calcaneal fractures including all 3 facets and with flattening of the calcaneal angle. Femur X-Ray 08/08/18 00:00 CONCLUSION: Intraoperative images. Chest Tube Insertion 08/09/18 00:00 CONCLUSION: 1. Uncomplicated reposition of previously placed left surgical chest tube as above. Head MRI 08/10/18 00:00 CONCLUSION: 1. Bilateral subarachnoid hemorrhage and minimal intraventricular hemorrhage. 2. No midline shift or mass effect. Ankle X-Ray 08/14/18 00:00 CONCLUSION: Soft tissue swelling with no acute fracture or malalignment. Foot X-Ray 08/15/18 00:00 CONCLUSION: Fluoroscopic images demonstrates internal fixation with multiple screws and plate and screws along the calcaneus near anatomic alignment. Knee X-Ray 08/20/18 00:00 CONCLUSION: Status post fracture fixation of the markedly comminuted patellar fracture. Innumerable methylmethacrylate beads are noted posteriorly Chest X-Ray 08/22/18 06:00 CONCLUSION: Left chest tube with stable tiny left apical pneumothorax. Increase in basilar airspace disease since August 21, 2018 . Discharge Plan - Discharge Disposition Patient Disposition: 61 Re[facility] Inpatient - Discharge Condition Condition: Stable - Discharge Order Discharge Orders: Discharge Order (Routine); Ordered 08/22/18 Ordered By: An [facility] Clear for Discharge (Routine); Ordered 08/20/18 Ordered By: Shashank Jones - Discharge Details Anticipated Discharge Date: 08/21/18 Discharge Comment: DC TO [facility] Physicians Team Primary Care Provider: UNKNOWN, Attending Provider: Bernard Andres Other Providers: Michael Toney MD ; Dave Mayes MD ; [facility] [employer] ; Bernard Andres MD ; An Mercer FRIDA ; Michael Tony MD ; Cristiane Roberto MD ; Chanell Fields ARNP ; Erin Claudio MD ; Obdulio Lim MD ; Gagan Warren DMD ; Rasta Hernandez MD ; Bharat Mark, PhD ; Karis Jordan MD ; Nitish Dubose MD ; Carmel Jimenez MD ; Jarad Higuera MD ; Bi Salmeron MD ; [facility]
[2018-08-22] MEDS ORDERED: RESP: Acetylcysteine 10% 4 ML Neb NEB SCH (16:00)
[2018-08-22] MEDS ORDERED: Pharmacy Ordered Lab Info OTHER ONE (16:45)
== END 2018-08-22 14:40 | DRG 3 ==
LOC: NEPI 21:43 → EDBD 22:15 → NEDA 22:15 → N03 23:00
PROVIDERS: ADMIT Surgery; ATTEND Surgery
PROC: ORIFCAL (2018-08-15 08:32)
DX: Z99.11 Dependence on respirator [ventilator] status; S42.102A Fracture of unspecified part of scapula, left shoulder, initial encounter for closed fracture; S01.81XA Laceration without foreign body of other part of head, initial encounter; E87.70 Fluid overload, unspecified; S01.112A Laceration without foreign body of left eyelid and periocular area, initial encounter; [UNRECOGNIZED DIAGNOSIS CODE]; Y82.8 Other medical devices associated with adverse incidents; S01.122A Laceration with foreign body of left eyelid and periocular area, initial encounter; Z53.09 Procedure and treatment not carried out because of other contraindication; E03.0 Congenital hypothyroidism with diffuse goiter; S06.9X9A Unspecified intracranial injury with loss of consciousness of unspecified duration, initial encounter; V14 Pedal cycle rider injured in collision with heavy transport vehicle or bus; S22.018A Other fracture of first thoracic vertebra, initial encounter for closed fracture; S92.001A Unspecified fracture of right calcaneus, initial encounter for closed fracture; V47.5XXA Car driver injured in collision with fixed or stationary object in traffic accident, initial encounter; Y92.410 Unspecified street and highway as the place of occurrence of the external cause; J95.851 Ventilator associated pneumonia; S82.092B Other fracture of left patella, initial encounter for open fracture type I or II; S22.021A Stable burst fracture of second thoracic vertebra, initial encounter for closed fracture; T17.890A Other foreign object in other parts of respiratory tract causing asphyxiation, initial encounter; Z88.1 Allergy status to other antibiotic agents; I47.1 Supraventricular tachycardia; M79.7 Fibromyalgia; S27.322A Contusion of lung, bilateral, initial encounter; V64 Occupant of heavy transport vehicle injured in collision with heavy transport vehicle or bus; Y92.230 Patient room in hospital as the place of occurrence of the external cause; S72.461B Displaced supracondylar fracture with intracondylar extension of lower end of right femur, initial encounter for open fracture type I or II; S06.6X9A Traumatic subarachnoid hemorrhage with loss of consciousness of unspecified duration, initial encounter; T79.1XXA Fat embolism (traumatic), initial encounter; S27.2XXA Traumatic hemopneumothorax, initial encounter; S22.41XA Multiple fractures of ribs, right side, initial encounter for closed fracture; Y93.89 Activity, other specified; S02.40DA Maxillary fracture, left side, initial encounter for closed fracture; F02.80 Dementia in other diseases classified elsewhere, unspecified severity, without behavioral disturbance, psychotic disturbance, mood disturbance, and anxiety; T79.4XXA Traumatic shock, initial encounter; S81.011A Laceration without foreign body, right knee, initial encounter; S36.220A Contusion of head of pancreas, initial encounter; J96.01 Acute respiratory failure with hypoxia; E849.5; E87.2 Acidosis; I48.91 Unspecified atrial fibrillation; D64.9 Anemia, unspecified; F17.210 Nicotine dependence, cigarettes, uncomplicated; D69.6 Thrombocytopenia, unspecified; Y84.8 Other medical procedures as the cause of abnormal reaction of the patient, or of later complication, without mention of misadventure at the time of the procedure; S82.001A Unspecified fracture of right patella, initial encounter for closed fracture; S36.116A Major laceration of liver, initial encounter
CPT/HCPCS: 31500; 31624; 32020; 32551; 32999; 36430; 36556; 36600; 51702; 51798; 70450; 70486; 70496; 70498; 70551; 71010; 71045; 71260; 71275; 72125; 72129; 72132; 72146; 72148; 72170; 73552; 73560; 73610; 73630; 73650; 73700; 74177; 76000; 76937; 80048; 80053; 80202; 80307; 81001; 82040; 82550; 82552; 82805; 83735; 84132; 84484; 84702; 85014; 85018; 85025; 85384; 85610; 85730; 86077; 86403; 86850; 86870; 86900; 86901; 86920; 86922; 86923; 87040; 87070; 87077; 87086; 87147; 87186; 87205; 87641; 90471; 90774; 90775; 90784; 93005; 94002; 94003; 94640; 94656; 94657; 94664; 94665; 95819; 96374; 96375; 97110; 97163; 97164; 97167; 97530; 99285; 99291; A7521; C1713; C1769; C1776; C1887; C8952; C9113; C9223; C9238; C9503; G0390; J0131; J0150; J0153; J0690; J0692; J1100; J1120; J1170; J1580; J1630; J1650; J1885; J1953; J1956; J2250; J2370; J2405; J2704; J3010; J3370; J3480; J7030; J7050; J7120; L0150; L0172; L1830; P9016; P9017; Q9967